=== PATIENT | male | born 1960 | race African-American/Black ===

== ENCOUNTER 2020-09-22 09:29 | Outpatient (REF) | payer MEDICAID, SELFPAY | END 2020-09-22 09:30 | disposition home or self-care (01) | LOC: HO.LAB 09:29 | PROVIDERS: Visit Provider Internal Medicine | DX: Z20.828 Contact with and (suspected) exposure to other viral communicable diseases (principal) | CPT/HCPCS: C9803; U0003 ==

== ENCOUNTER → 2020-12-16 13:14 | Outpatient (BNVA) | payer MEDICAID, SELFPAY | PROVIDERS: PCP Internal Medicine; Visit Provider Nurse Practitioner ==

== ENCOUNTER → 2020-12-24 08:23 | Outpatient (BNVA) | payer MEDICAID, SELFPAY | PROVIDERS: PCP Internal Medicine; Visit Provider Nurse Practitioner ==

== ENCOUNTER 2021-02-17 08:24 | Day surgery (SDC) | payer MEDICAID, SELFPAY ==
--- NOTE | 2021-01-30 13:40 | HO.ANESPROP2 ---
HPI - Anesthesia Eval Consult details Narrative: 60yo M for Colonoscopy PMFSH Active Problems Active Problems: All Active Problems (Updated 01/28/21 @ 14:38 by Jessica Nguyen) Colon cancer screening (Acute) Tubular adenoma of colon (Acute) Past Medical History Medical History (Updated 01/30/21 @ 13:40 by Darcie West) BPH (benign prostatic hyperplasia) Diabetes Hypertension Family History Family History (Updated 12/16/20 @ 13:22 by Shannan Lopes [place]) Father Parkinsons Mother No problems noted. Surgical History Surgical History (Updated 01/28/21 @ 14:38 by Jessica Nguyen) Hx of colonoscopy Social History Social History (Updated 12/24/20 @ 08:28 by Mari Martell [place]) Household Members: Spouse, Family and Children Alcohol intake: current Alcohol intake frequency: does not drink Smoking Status: Current every day smoker Tobacco Type: Cigarette Cigarettes Per Day: 8 Meds Allergies Allergy/AdvReac Type Severity Reaction Status Date / Time No Known Allergies Allergy Verified 01/28/21 14:33 [No Known Allergies*] Home Medications Medication Instructions Recorded Confirmed Last Taken Type amlodipine 10 mg PO DAILY 01/28/21 01/28/21 Unknown History atorvastatin 20 mg PO DAILY 01/28/21 01/28/21 Unknown History cholecalciferol (vitamin D3) 50 mcg PO DAILY 01/28/21 01/28/21 Unknown History [Vitamin D3] glipizide 2.5 mg PO 1200 01/28/21 01/28/21 Unknown History glipizide 10 mg PO DAILY 01/28/21 01/28/21 Unknown History hydroxyzine HCl 25 mg PO BID PRN 01/28/21 01/28/21 Unknown History pioglitazone [Actos] 15 mg PO DAILY 01/28/21 01/28/21 Unknown History Exam Exam Date and Time: January 30, 2021 1340 Assessment and Plan Assessment Anesthesia Assessment: Chart Reviewed
--- NOTE | 2021-02-17 09:09 | P.OP_ITS ---
Operative Note Operative Note Date of Service: 02/17/21 Narrative: Pre-op diagnosis: Colon cancer screening, history of colon polyps Post-op diagnosis: other (COLON POLYPS, DIVERTICULOSIS, HEMORRHOIDS) Procedure: COLONOSCOPY TILL CECUM WITH SNARE POLYPECTOMY Consent: Indications for the procedure and potential complications of bleeding, perforation, reaction to medications and missed diagnosis were discussed with the patient and informed consent was obtained. Instrument: Olympus PCF H 190 L variable stiffness pediatric colonoscope Monitoring: Vital signs and clinical assessment, intermittent blood pressure monitoring, continuous EKG monitoring, Pulse oximetry and Carbon Dioxide monitoring were done throughout the procedure. Colon withdrawl time was 28 minutes. Procedure: The patient was placed in the left lateral decubitis position and pre-procedure medications were administered. After a digital rectal examination of the ano-rectum, the video colonoscope was inserted into the rectum and advanced through the colon to the cecum. The colonoscope was slowly withdrawn in a retrograde panoramic fashion and the colon mucosa was carefully examined including a retroflexed view of the rectum. Findings and interventions are described below. Procedure Difficulty: Without difficulty Findings: Terminal Ileum: Not evaluated Cecum: Diverticulosis Ascending Colon: Moderate diverticulosis Transverse Colon: A 10-12 mm sessile polyp removed with a hot snare Descending Colon: Moderate diverticulosis Sigmoid Colon: Moderate diverticulosis Rectum: Normal Ano-rectum: Moderate internal hemorrhoids Colon preparation: Good after copious irrigation Impression and Post Procedure Diagnosis: Colonoscopy Findings: One medium sized polyp removed Moderate diverticulosis seen in the entire colon Moderate hemorrhoids on retroflexed exam. Plan: Await pathology results Patient has an appointment on 02/24/21 in the [facility] with Karolina Cisneros NP . Repeat Colonoscopy interval based on path results - in 3-5 years if polyps are adenomatous and due to history of colon polyps. Above findings were reviewed with the patient and colon polyps and diverticulosis handouts were given in the discharge area Surgeon: Cortney Bailey MD Anesthesia: MAC (Salena Darling CRNA) Outside Upholsterer: Agustin Rubalcava Estimated blood loss (mL): 0 Pathology: other (A- TRANSVERSE COLON POLYP) Condition: stable Disposition: PACU
--- NOTE | 2021-02-17 09:10 | MHC.SHP ---
Pre-Procedural Eval Section A The patient is an INPATIENT: No The History & Physical has been completed within 30 days and I have reviewed it.: No Section B Chief Complaint: Screening, Tubular Adenoma Details of Present Illness: Colon cancer screening, history of colon polyps Relevant Social History: Tobacco Use Present Medications: see Short Stay Collaborative assessment Medical History: Significant History (Diabetes. Hypertension, unspecified type. Benign prostatic hyperplasia, unspecified whether lower urinary tract symptoms present. ) History of Previous Operations: Relevant previous surgery/procedure and date(s) (Laser of the prostate 2018, colonoscopy - 05/2017 in [place]) Allergies: Allergies Allergy/AdvReac Type Severity Reaction Status Date / Time No Known Allergies Allergy Verified 01/28/21 14:33 [No Known Allergies*] Review of Systems Sugical H&P ROS: Negative: Constitution, Cardiovascular, Respiratory and Gastrointestinal Exam Surgical H&P Exam: Normal: Heart, Normal: Lungs, Normal: Extremities and Normal: Abdomen Plan Diagnosis/Plan: Unchanged I have reviewed the history and physical and performed a pertinent physical examination on my patient. No changes have occurred unless specified.
[2021-02-17 09:13] VITALS: BMI 29.0
[2021-02-17 09:40] VITALS: BP 136/66; PULSE 57; RESP 16; TEMP 36.8; O2SAT 97
[2021-02-17 09:42] LABS: Glucose, Whole Blood 141 mg/dL (60-115)
[2021-02-17] MEDS: Lactated Ringers 1,000 ML 100 ML IVCONT (09:54)
--- NOTE | 2021-02-17 10:00 | HO.ANESPROP2 ---
[facility] Active Problems Active Problems: All Active Problems (Updated 01/30/21 @ 13:40 by Darcie West) Colon cancer screening (Acute) Tubular adenoma of colon (Acute) Past Medical History Medical History BPH (benign prostatic hyperplasia) Diabetes Hypertension Family History Family History Father Parkinsons Mother No problems noted. Surgical History Surgical History Hx of colonoscopy Social History Social History Household Members: Spouse, Family and Children Alcohol intake: current Alcohol intake frequency: holidays/special occasions only Smoking Status: Current every day smoker Tobacco Type: Cigarette Cigarettes Per Day: 7 Smoked in Last 30 Days: Yes Use of substances other than those prescribed or required for medical reasons: No Advance Directives: No Advance Directives Information Provided: Yes Meds Allergies Allergy/AdvReac Type Severity Reaction Status Date / Time metformin Allergy Rash Verified 02/17/21 09:12 Active Medications: Current Medications Generic Name Dose Route Start Last Admin Trade Name Freq PRN Reason Stop Dose Admin Albuterol Sulfate 2.5 mg 02/17/21 08:32 Albuterol Sulfate (0.083%) 2.5 Mg/3 Ml Vial.Neb INHALE ONCE PRN Shortness of Breath/Wheezing Lactated Ringer's 1,000 mls @ 100 mls/hr 02/17/21 08:45 02/17/21 09:54 Lr IVCONT 100 mls/hr .Q10H EZRA Administration Home Medications Medication Instructions Recorded Confirmed Last Taken Type amlodipine 10 mg PO DAILY 01/28/21 02/17/21 02/17/21 History atorvastatin 20 mg PO DAILY 01/28/21 01/28/21 Unknown History cholecalciferol (vitamin D3) 50 mcg PO DAILY 01/28/21 01/28/21 Unknown History [Vitamin D3] glipizide 2.5 mg PO 1200 01/28/21 01/28/21 Unknown History glipizide 10 mg PO DAILY 01/28/21 01/28/21 Unknown History hydroxyzine HCl 25 mg PO BID PRN 01/28/21 01/28/21 Unknown History pioglitazone [Actos] 15 mg PO DAILY 01/28/21 01/28/21 Unknown History Exam Exam Date and Time: February 17, 2021 1000 Height,Weight and Vital Signs: Height 5 ft 6 in Weight 81.647 kg Last Vital Signs Temp 98.2 F 02/17/21 09:40 Pulse 57 02/17/21 09:40 Resp 16 02/17/21 09:40 BP 136/66 02/17/21 09:40 Pulse Ox 97 02/17/21 09:40 Pertinent Lab Results Pertinent Lab Results: Laboratory Tests 02/17/21 09:38 POC Glucose 141 H Airway Mallampati Class: II TM Dist: >3cm Neck ROM: Full Loose/Missing/Broken Teeth: No Heart: RRR Lungs: CTA Assessment and Plan Assessment Anesthesia Assessment: Anesthesia Plan Discussed and Chart Reviewed Final Anesthetic Review NPO: Yes ASA Class: II Final Preanesthetic Review: Meds/Allgs Chart Reviewed, Consent Obtained/Reviewed and Anes Risks/Benef Reviewed Patient Risk: Low Procedure Risk: Low Anesthetic Plan Anesthetic Plan: MAC: Disposition: Standard PACU
[2021-02-17 10:57] VITALS: BP 90/58; PULSE 68; RESP 16; TEMP 36.8; O2SAT 98
[2021-02-17 11:13] VITALS: BP 96/61; PULSE 57; RESP 18; O2SAT 99
--- NOTE | 2021-02-17 11:43 | PC.NURSE ---
[facility] Radiologic Technology Teacher utilized for patient education and discharge instructions
== END 2021-02-17 11:44 | disposition home or self-care (01) ==
PROVIDERS: PCP Internal Medicine; Visit Provider Internal Medicine Gastroenterology
PROC: 0DJD8ZZ Inspection of Lower Intestinal Tract, Via Natural or Artificial Opening Endoscopic (ICD-10-PCS; CPT 45378; principal; 2021-02-17 09:50)
DX: Z12.11 Encounter for screening for malignant neoplasm of colon (principal); Z86.010 Personal history of colon polyps; D12.3 Benign neoplasm of transverse colon; K57.30 Diverticulosis of large intestine without perforation or abscess without bleeding; K64.8 Other hemorrhoids; F17.210 Nicotine dependence, cigarettes, uncomplicated; N40.0 Benign prostatic hyperplasia without lower urinary tract symptoms; I10 Essential (primary) hypertension; E11.9 Type 2 diabetes mellitus without complications; Z79.84 Long term (current) use of oral hypoglycemic drugs; Z79.899 Other long term (current) drug therapy
CPT/HCPCS: 45385; 82947; 88305

== ENCOUNTER → 2021-02-24 12:16 | Outpatient (BNVA) | payer MEDICAID, SELFPAY | PROVIDERS: PCP Internal Medicine; Visit Provider Nurse Practitioner ==

== ENCOUNTER 2022-09-21 09:58 | Emergency (ER) | payer MEDICAID, SELFPAY ==
[2022-09-21 10:38] VITALS: BP 148/70; PULSE 65; RESP 16; TEMP 36.4; O2SAT 98; BMI 27.7
[2022-09-21] MEDS: Lidocaine 4 % Patch ADH..PATCH 1 PATCH TRANSDERMA (14:51)
[2022-09-21] MEDS: Acetaminophen 325 MG TABLET 975 MG PO (14:51)
[2022-09-21] MEDS: Ibuprofen 400 MG TABLET PO (14:52)
--- NOTE | 2022-09-21 14:55 | ED_ITS ---
HPI - Headache General Chief Complaint: Headache Stated Complaint: R Side Head Pain No Injury Time Seen by Provider: 09/21/22 14:54 Source: patient Mode of arrival: ambulatory Limitations: no limitations History of Present Illness HPI Narrative: This is a 61-year-old male past medical history significant for diabetes, hypertension presenting to the emergency department with a stiff neck times 2-3 days, patient tells me he woke up this by. Patient tells me he feels like his neck is tense . Worse with movement better at rest. He tells me he feels like he is having muscle spasm in his neck. He tells me this has happened to him before, pain is not improving with OTC medications. Patient denies headache, dizziness, vision changes, weakness, chest pain, shortness of breath, fevers, chills, altered mental status,numbness, tingling. No trauma. Ambulatory into room w/o difficulty Related Data Home Medications Medication Instructions Recorded Confirmed amlodipine 10 mg tablet 10 mg PO DAILY 01/28/21 02/17/21 atorvastatin 20 mg tablet 20 mg PO DAILY 01/28/21 01/28/21 cholecalciferol (vitamin D3) 50 50 mcg PO DAILY 01/28/21 01/28/21 mcg (2,000 unit) capsule (Vitamin D3) glipizide 10 mg tablet, extended 10 mg PO DAILY 01/28/21 01/28/21 release 24 hr glipizide 2.5 mg tablet, extended 2.5 mg PO 1200 01/28/21 01/28/21 release 24 hr hydroxyzine HCl 25 mg tablet 25 mg PO BID PRN Anxiety 01/28/21 01/28/21 pioglitazone 15 mg tablet (Actos) 15 mg PO DAILY 01/28/21 01/28/21 Previous Rx's Medication Instructions Recorded diazepam 2 mg tablet (Valium) 2 mg PO BID PRN muscle spasm #10 09/21/22 tabs ketorolac 10 mg tablet 10 mg PO TID PRN pain 5 days #14 09/21/22 tabs Allergies Allergy/AdvReac Type Severity Reaction Status Date / Time metformin Allergy Rash Verified 02/24/21 12:17 Review of Systems Review of Systems: Constitutional : No Weight loss, No Fever, No Chills, No Fatigue, No Malaise ENT/Mouth : No sore throat, No Rhinorrhea Eyes: No Eye Pain, No Swelling, No Redness Cardiovascular : No Chest Pain, No SOB, No Dyspnea on Exertion, No Orthopnea, No Edema, No Palpitations Respiratory : No Cough, No Sputum, No Wheezing Gastrointestinal : No Nausea, No Vomiting, No Diarrhea, No Constipation, No abdominal Pain, No Hematochezia, No Melena Genitourinary : No Dysuria, No Urinary Frequency, No Hematuria, Musculoskeletal : No joint pain, No Myalgias, No Joint Swelling, + neck pain Skin : No Skin Lesions, No rash Neuro : No Weakness, No Numbness, No Dizziness, + Headache Psych : No Anxiety/Panic, No Depression All other systems reviewed and are negative Yes all other systems are reviewed and are negative REPLACED BY [facility] Past Medical History Attestation statement: The following information was validated with the patient. Source: old records reviewed and nursing notes reviewed Medical History BPH (benign prostatic hyperplasia) Diabetes Hypertension Surgical History Hx of colonoscopy Hx of colonoscopy Family History Family History Father Parkinsons Mother No problems noted. Social History Social History Household Members: Spouse, Family and Children Alcohol intake: current Alcohol intake frequency: holidays/special occasions only Cigarettes Per Day: 7 Advance Directives: No Physical Exam Vital Signs: Vital Signs: Last Vital Signs Temp 97.5 F 09/21/22 10:38 Pulse 65 09/21/22 10:38 Resp 16 09/21/22 10:38 BP 148/70 H 09/21/22 10:38 Pulse Ox 98 09/21/22 10:38 O2 Del Method 09/21/22 10:38 BMI result Body Mass Index 27.7 vss Appearance: Alert.? Oriented X3.? No acute distress.? Head: Normocephalic, atraumatic, no step-offs or deformities Eyes: Pupils equal, round and reactive to light.? Neck: Normal inspection.? Neck supple.?+ bilateral cervical paraspinous tenderne ss. Worse on the right. Patient with Lidoderm patch overlying the affected area CVS: Normal heart rate and rhythm.? Pulses normal.? Respiratory: No respiratory distress.? Breath sounds normal.? Abdomen: Soft and nontender.? Skin: Skin warm and dry.? Normal skin color.? Normal skin turgor.? Extremities: No lower extremity edema.? No calf ttp. 5/5 strength to bilateral upper and lower extremities Neuro: Oriented X 3.? No motor deficit.? No sensory deficit. CN 2-12 intact . Normal vfjeyj-pv-mncn, mkgh-pl-mcwy, steady tandem gait. normal rapid alternating movements and coordination. Course Reevaluation(s) Reevaluation #1: Patient tolerated medications well. Advised to return with new or worsening symptoms. Patient will be sent home with the same medications, gave him instructions on how to take Toradol and told him not to mix with NSAIDs or alcohol. Educated on worrisome signs and symptoms and when to return, comfortable for discharge Time: 15:08 Medications Administered Discontinued Medications Generic Name Dose Route Start Last Admin Trade Name Greta PRN Reason Stop Dose Admin Acetaminophen 975 mg 09/21/22 14:22 09/21/22 14:51 Acetaminophen 325 Mg Tablet PO 09/21/22 14:23 975 mg ONCE ONE Administration Ibuprofen 400 mg 09/21/22 14:22 09/21/22 14:52 Ibuprofen 400 Mg Tablet PO 09/21/22 14:23 400 mg ONCE ONE Administration Lidocaine 1 patch 09/21/22 14:22 09/21/22 14:51 Lidocaine 4 % Patch Adh..Patch TRANSDERMA 09/21/22 14:23 1 patch ONCE ONE Administration Protocol MDM - Headache MDM Narrative Medical decision making narrative: 1458 61 year old male presents w/ right sided head pain and neck pain X2 days PE- bilateral cervical paraspinous tenderness. Negative lehermit sign. Full ROM to neck. No meningeal signs. RRR. Lungs clear. Neuro nonfocal. Cerebellar intact Likley cervical spasm. Unlikely meningitis, encephalitis, paraspinous/epidural abcess, cord compression, intracranial hemorrhage, subarachnoid, stroke or posterior stroke. NIH stroke scale 0. plan at this time is to give diazepam, Toradol. no need for imaging at this time as patient has atraumatic pain in is likely musculoskeletal in nature. Medical Records Attestation: I reviewed the patient's medical records. Lab Data Attestation: I reviewed the patient's lab results. Critical Care Time Critical Care Time Critical Care Time: No Discharge Plan Discharge Clinical Impression: Cervical paraspinous muscle spasm Patient Disposition: Home, Self-Care Instructions: Muscle Spasm (ED) Additional Instructions: Take your medications as prescribed. If you were prescribed antibiotics today, it is important that you take your medication to their entirety, do not skip any doses, do not finish them early. Follow-up with your primary care provider this week. Return to the emergency department with new or worsening symptoms. Such as fevers, chills, chest pain, shortness of breath, nausea, vomiting, dizziness, headache, vision changes, lethargy a numbness, tingling, changes in vision In case of emergency call 911 Please do not take this medication with other anti-inflammatory medications or NSAIDs. Do not take this with alcohol. This can cause GI bleeding. [place] gurwinder medicamentos seg?n lo prescrito. Si le recetaron antibi?ticos hoy, es importante que tome bergeron medicamento en bergeron totalidad, no se salte ninguna dosis, no los termine antes de tiempo. Seguimiento con bergeron proveedor de atenci?n primaria esta semana. Regrese al departamento de emergencias con s?ntomas nuevos o que empeoran. [place] fiebre, escalofr?os, dolor de pecho, dificultad para respirar, n?useas, v?mitos, mareos, dolor de negin, cambios en la visi?n, letargo, entumecimiento, hormigueo, cambios en la visi?n. En mary de emergencia llama al 911 No tome mary carmen medicamento con otros medicamentos antiinflamatorios o NSAIDs. No tome esto con alcohol. [place] puede causar sangrado gastrointestinal. Prescriptions: New diazepam [Valium] 2 mg tablet 2 mg PO BID PRN (Reason: muscle spasm) Qty: 10 0RF ketorolac 10 mg tablet 10 mg PO TID PRN (Reason: pain) 5 Days Qty: 14 0RF Rx Instructions: tolerated IM in the department. Please do not take this medication with other anti-inflammatory medications or NSAIDs, do not mix with alcohol. Increase chance of bleeding. No Action pioglitazone [Actos] 15 mg Tablet 15 mg PO DAILY atorvastatin 20 mg Tablet 20 mg PO DAILY glipizide 10 mg Tablet Extended Release 24hr 10 mg PO DAILY amlodipine 10 mg Tablet 10 mg PO DAILY glipizide 2.5 mg Tablet Extended Release 24hr 2.5 mg PO 1200 hydroxyzine HCl 25 mg Tablet 25 mg PO BID PRN (Reason: Anxiety) cholecalciferol (vitamin D3) [Vitamin D3] 50 mcg (2,000 unit) Capsule 50 mcg PO DAILY Referrals: Clari Lemons MD [Primary Care Provider] - 2 days Stand Alone Forms: Work/School Release
[2022-09-21] MEDS: diazePAM 2 MG TABLET PO (15:21)
[2022-09-21] MEDS: Ketorolac Tromethamine 15 MG/ML VIAL IM (15:22)
[2022-09-21 15:37] LABS: Influenza A PCR NEGATIVE (Negative); Influenza B PCR NEGATIVE (Negative); Resp Syncy Virus RNA Qual PCR NEGATIVE (Negative); SARS COV2 PCR INHOUSE NEGATIVE (Negative)
== END 2022-09-21 15:37 | disposition home or self-care (01) ==
PROVIDERS: Student in an Organized Health Care Education/Training Program; Emergency Provider Internal Medicine; PCP Internal Medicine
DX: M54.2 Cervicalgia (principal); R51.9 Headache, unspecified; I10 Essential (primary) hypertension; Z20.822 Contact with and (suspected) exposure to COVID-19
CPT/HCPCS: 0241U; 96372; 99283; 99284; J1885

== ENCOUNTER 2022-11-08 13:25 | Emergency (ER) | payer MEDICAID, SELFPAY ==
[2022-11-08 13:40] VITALS: BP 128/87; PULSE 62; RESP 16; TEMP 36.6; O2SAT 98; BMI 27.7
--- NOTE | 2022-11-08 13:46 | PC.NURSE ---
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
[2022-11-08 14:13] VITALS: BP 157/93; PULSE 67; O2SAT 97
== END 2022-11-08 14:27 | disposition home or self-care (01) ==
PROVIDERS: Emergency Provider Emergency Medicine; PCP Internal Medicine
DX: S00.532A Contusion of oral cavity, initial encounter (principal); W22.09XA Striking against other stationary object, initial encounter; E11.9 Type 2 diabetes mellitus without complications; I10 Essential (primary) hypertension; F17.210 Nicotine dependence, cigarettes, uncomplicated; Y93.9 Activity, unspecified; Y92.032 Bedroom in apartment as the place of occurrence of the external cause; Y99.9 Unspecified external cause status
CPT/HCPCS: 99283; 99284

== ENCOUNTER 2023-07-31 16:41 | Emergency (ER) | payer MEDICAID, SELFPAY ==
[2023-07-31 17:50] VITALS: BP 137/77; PULSE 76; RESP 20; TEMP 36; O2SAT 96; BMI 27.6
--- NOTE | 2023-07-31 17:57 | ED.GENADULT ---
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 Pain has been constant for the past month in the epigastric area but over the past 3 days the pain is becoming more diffuse to the left lower quadrant area, constant, severe 7/10, no nausea, no vomiting, no diarrhea, normal bowel movement this morning with low blood, no fever, chills, no dysuria, frequent urination, no blood in the urine. Never had intra-abdominal surgery in the past. Patient had colonoscopy 3 years ago and was unremarkable as per patient. No history of intra-abdominal surgery. Related Data Home Medications Medication Instructions Recorded Confirmed amlodipine 10 mg tablet 10 mg PO DAILY 01/28/21 02/17/21 atorvastatin 20 mg tablet 20 mg PO DAILY 01/28/21 01/28/21 cholecalciferol (vitamin D3) 50 50 mcg PO DAILY 01/28/21 01/28/21 mcg (2,000 unit) capsule (Vitamin D3) glipizide 10 mg tablet, extended 10 mg PO DAILY 01/28/21 01/28/21 release 24 hr glipizide 2.5 mg tablet, extended 2.5 mg PO 1200 01/28/21 01/28/21 release 24 hr hydroxyzine HCl 25 mg tablet 25 mg PO BID PRN Anxiety 01/28/21 01/28/21 pioglitazone 15 mg tablet (Actos) 15 mg PO DAILY 01/28/21 01/28/21 Previous Rx's Medication Instructions Recorded diazepam 2 mg tablet (Valium) 2 mg PO BID PRN muscle spasm #10 09/21/22 tabs ketorolac 10 mg tablet 10 mg PO TID PRN pain 5 days #14 09/21/22 tabs lidocaine 5 % topical patch 1 patch topical DAILY PRN pain #15 09/21/22 ea omeprazole 40 mg capsule,delayed 40 mg PO DAILY #20 caps 08/01/23 release Allergies Allergy/AdvReac Type Severity Reaction Status Date / Time metformin Allergy Rash Verified 07/31/23 17:58 Review of Systems Review of Systems: All other systems are reviewed and are negative Constitutional: Reports as per HPI and Reports no additional constitutional complaints Eyes: Reports as per HPI and Reports no additional eye complaints Reports system reviewed and no additional complaints, except as documented Cardiovascular: Reports as per HPI and Reports no additional cardiovascular complaints Respiratory: Reports as per HPI and Reports no additional respiratory complaints Gastrointestinal: Reports as per HPI and Reports no additional gastrointestinal complaints Genitourinary: Reports no additional female genitourinary complaints Musculoskeletal: Reports no additional musculoskeletal complaints Skin/Breast: Reports system reviewed and no additional complaints, except as docu Psychiatric: Reports no additional psychiatric complaints Endocrine: Reports no additional endocrine complaints Hematologic/Lymphatic: Reports no additional hematologic/lymphatic complaints Allergic/Immunologic: Reports no additional allergic/immunologic complaints Reports system reviewed and no additional complaints, except as documented and Reports Abnormal speech present [facility] Past Medical History Medical History Diabetes BPH (benign prostatic hyperplasia) Hypertension Surgical History Hx of colonoscopy Hx of colonoscopy Family History Family History Father Parkinsons Mother No problems noted. Social History Social History Household Members: Spouse, Family and Children Alcohol intake: never Cigarettes Per Day: 7 Smoked in Last 30 Days: Yes Use of substances other than those prescribed or required for medical reasons: No Advance Directives: No Advance Directives Information Provided: No Physical Exam ED Vital Signs: Vital Signs - 24 hr 07/31/23 17:50 07/31/23 23:56 08/01/23 02:47 Temperature 96.8 F Pulse Rate 76 73 65 Respiratory Rate 20 12 12 Blood Pressure 137/77 127/83 128/76 Pulse Oximetry 96 95 97 Oxygen Delivery Method Room Air Room Air Room Air BMI result Body Mass Index 27.6 Vital signs have been reviewed and appear to be correct. Blood pressure elevated. Heart rate normal. Respiratory rate normal. Temperature normal. Oxygen saturation normal. Appearance: Alert. Oriented X3. No acute distress. Head: Normal external exam. Normocephalic. Atraumatic. No Roberts signs noted. No raccoon eyes noted Eyes: PERRLA. EOMI. Conjunctiva and sclera normal. Eyelids normal. ENT: TM's Normal. Pharynx normal. Uvula midline. Moist mucous membranes. No trismus noted. No drooling noted. No muffled voice noted. Neck: Normal inspection. Neck supple. FROM. No adenopathy. Thyroid Normal. No meningeal signs. No neck mass noted. CVS: Normal heart rate and rhythm. Heart sound normal. No murmurs noted. Pulses normal throughout. Respiratory: No respiratory distress. Painless inspiration. Breath sounds normal. No wheezes/rales/rhonchi noted. Chest nontender. No accessory muscle usage noted or decreased air movement noted. Abdomen: Soft and nontender. Bowel sounds normal in all 4 quadrants. No distention noted. No organomegaly noted. No visible injury noted. Back: No CVA tenderness. Full range of motion noted. Skin: Skin warm and dry. Normal skin color. Normal skin turgor. No rashes/lesions/lacerations noted. Extremities: No lower extremity edema. Extremities exhibit normal range of motion. Extremities nontender. Neuro: Oriented X 3. Cranial nerve exam: II-XII are grossly intact No motor deficit. No sensory deficit. Reflexes normal. Course Course Course Narrative: RME: 62 yold male presents to the ED for epigastric abdominal pain that is now generalized for the past 3 days. Patietn denies any complaitns or constipation. labs, EKG ordereed Reevaluation(s) Reevaluation #1: Three days of abdominal pain, leukocytosis, physical exam and history is consistent with gastritis, CT abdomen pelvis is unremarkable for acute pathology. Will discharge the patient on Prilosec and follow-up with GI. Time: 02:37 Medications Administered Discontinued Medications Generic Name Dose Route Start Last Admin Trade Name Freq PRN Reason Stop Dose Admin Morphine Sulfate 2 mg 08/01/23 00:18 08/01/23 00:58 Morphine Sulfate 2 Mg/Ml Cartridge IM 08/01/23 00:19 2 mg ONCE ONE Administration Protocol Medical Decision Making Differential Diagnosis Differential Diagnoses: The differential diagnosis associated with the presentation includes (ACS, gastritis, colitis, diverticulitis, appendicitis, electrolyte abnormality, severe anemia.) Admission/Observation Consideration of admission/observation: Escalation of care including admission/observation considered Lab Data MDM Lab Attestation statement: I reviewed the patient's lab results. 07/31/23 18:08 07/31/23 18:08 Labs: Lab Results 07/31/23 07/31/23 Range/Units 18:08 23:48 WBC 13.9 H (4.8-10.8) X10*3/uL RBC 5.06 (4.60-5.80) X10*6/uL Hgb 15.5 (14.0-18.0) g/dl Hct 46.0 (42.0-52.0) % MCV 90.9 (80.0-98.0) fL MCH 30.6 (27.0-33.0) pg MCHC 33.7 (31.0-36.0) g/dl RDW 14.0 (11.0-16.0) % Plt Count 206 (160-400) X10*3/uL MPV 11.3 (9.4-12.4) fL Immature Gran % (Auto) 0.4 (0.0-0.4) % Neut % (Auto) 65.0 (45-73) % Lymph % (Auto) 24.9 (20-40) % Terry % (Auto) 7.5 (2-11) % Eos % (Auto) 1.9 (0-4) % Baso % (Auto) 0.3 (0-2) % Lymph # (Auto) 3.5 (1.2-4.9) X10*3/uL Terry # (Auto) 1.1 (0.1-1.2) X10*3/uL Eos # (Auto) 0.3 (0.0-0.4) X10*3/uL Baso # (Auto) 0.0 (0.0-0.2) X10*3/uL Abs Immat Gran (auto) 0.05 H (0.00-0.03) X10*3/uL Absolute Neuts (auto) 9.1 H (2.0-8.3) x10*3/uL Absolute Nucleated RBC 0.000 (0.0-0.012) X10*3/uL Nucleated RBC % (auto) 0.0 (0.0-0.2) /100WBC Sodium 138 (135-145) mmol/L Potassium 4.8 (3.3-5.1) mmol/L Chloride 104 (96-108) mmol/L Carbon Dioxide 23 (22-29) mmol/L Anion Gap 16 (12-20) BUN 15 (9-16) mg/dL Creatinine 1.04 (0.5-1.4) mg/dL Estim Creat Clear Calc 74.1 Estimated GFR > 60 Random Glucose 105 (60-115) mg/dL Calcium 9.9 (8.4-10.2) mg/dL Total Bilirubin 0.3 (0.0-1.0) mg/dL AST 11 (5-37) U/L ALT 12 (0-40) U/L Alkaline Phosphatase 73 (39-117) U/L Troponin I High Sens < 2.7 (<3.5-35.0) ng/L Total Protein 8.3 H (6.5-8.0) g/dL Albumin 4.2 (3.5-5.0) g/dL Lipase 17 (8-78) U/L Urine Color Yellow Urine Appearance Clear Urine pH 5.5 (5.0-9.0) Ur Specific [place] 1.020 (1.005-1.025) Urine Protein Negative (Neg-Trace) mg/dL Urine Glucose (UA) >=1000 H (Negative) mg/dL Urine Ketones Negative (Negative) mg/dL Urine Blood Trace H (Negative) Urine Nitrite Negative (Negative) Ur Leukocyte Esterase Negative (Negative) Urine RBC 0-2 (0-2) /HPF Urine WBC 0-5 (0-5) /HPF Ur Squamous Epith Cells 0-2 (0-2) /HPF Urine Bacteria None Seen (None Seen) Hyaline Casts 0-2 (0-2) /LPF Independent Interpretation I performed an independent interpretation of an: CT Scan (Abdomen pelvis: No acute pathology.) Radiology Impression Discussion of test interpretation with radiology: I have reviewed the radiologist's reading. Discharge Plan Discharge Clinical Impression: Abdominal pain, Gastritis Patient Disposition: Home, Self-Care Instructions: Abdominal Pain (ED) Prescriptions: New omeprazole 40 mg capsule,delayed release(DR/EC) 40 mg PO DAILY Qty: 20 0RF No Action pioglitazone [Actos] 15 mg Tablet 15 mg PO DAILY atorvastatin 20 mg Tablet 20 mg PO DAILY glipizide 10 mg Tablet Extended Release 24hr 10 mg PO DAILY amlodipine 10 mg Tablet 10 mg PO DAILY glipizide 2.5 mg Tablet Extended Release 24hr 2.5 mg PO 1200 hydroxyzine HCl 25 mg Tablet 25 mg PO BID PRN (Reason: Anxiety) cholecalciferol (vitamin D3) [Vitamin D3] 50 mcg (2,000 unit) Capsule 50 mcg PO DAILY diazepam [Valium] 2 mg tablet 2 mg PO BID PRN (Reason: muscle spasm) Qty: 10 0RF ketorolac 10 mg tablet 10 mg PO TID PRN (Reason: pain) 5 Days Qty: 14 0RF Rx Instructions: tolerated IM in the department. Please do not take this medication with other anti-inflammatory medications or NSAIDs, do not mix with alcohol. Increase chance of bleeding. lidocaine 5 % adhesive patch,medicated 1 patch topical DAILY PRN (Reason: pain) Qty: 15 0RF Rx Instructions: leave on most painful area for up to 12 hrs Referrals: Clari Lemons MD [Primary Care Provider] - Yolette Donahue MD [Physician] - Interventions: ED Discharge Assessment Last Done: 08/01/23 02:47 Discharge Date/Time: 08/01/23 02:48
[2023-07-31 18:34] LABS: Alanine Aminotransferase 12 U/L (0-40); Albumin Level 4.2 g/dL (3.5-5.0); Alkaline Phosphatase 73 U/L (39-117); Anion Gap 16 (12-20); Aspartate Amino Transferase 11 U/L (5-37); Bilirubin Total 0.3 mg/dL (0.0-1.0); Blood Urea Nitrogen 15 mg/dL (9-16); Calcium 9.9 mg/dL (8.4-10.2); Carbon Dioxide 23 mmol/L (22-29); Chloride 104 mmol/L (96-108); Creatinine Clr Calc Pharmacy 74.1; Estimated Glomerular Filt Rate > 60; Glucose Random 105 mg/dL (60-115); Lipase 17 U/L (8-78); Potassium 4.8 mmol/L (3.3-5.1); Sodium 138 mmol/L (135-145); Total Protein 8.3 g/dL (6.5-8.0)
[2023-07-31 23:56] VITALS: BP 127/83; PULSE 73; RESP 12; O2SAT 95
--- NOTE | 2023-07-31 23:58 | PC.NURSE ---
Pt aox4 resting at the bedside. No apparent distress noted. VSS. Reports abd pain, 4/10, x 3 days. Urine sample provided and sent to the lab. Pending physician anabell.
[2023-08-01 02:47] VITALS: BP 128/76; PULSE 65; RESP 12; O2SAT 97
== END 2023-08-01 02:48 | disposition home or self-care (01) ==
PROVIDERS: Physician Assistant; Emergency Provider Emergency Medicine; PCP Internal Medicine
DX: K29.70 Gastritis, unspecified, without bleeding (principal); R10.32 Left lower quadrant pain; R10.13 Epigastric pain; R94.31 Abnormal electrocardiogram [ECG] [EKG]; Z79.899 Other long term (current) drug therapy
CPT/HCPCS: 36415; 74176; 80053; 81001; 83690; 84484; 85025; 93005; 96372; 99284; J2270

== ENCOUNTER 2023-10-05 19:58 | Outpatient (REF) | payer MEDICAID, SELFPAY | END 2023-10-05 19:59 | disposition home or self-care (01) | LOC: HO.HHCLNP 19:58 | PROVIDERS: Visit Provider Internal Medicine | DX: R35.1 Nocturia (principal) | CPT/HCPCS: 87086 ==

== ENCOUNTER 2023-11-21 12:26 | Outpatient (REF) | payer MEDICAID, SELFPAY ==
[2023-11-21 16:40] LABS: Urine Cytology See Pathology rpt
== END 2023-11-21 12:27 | disposition home or self-care (01) ==
LOC: HO.LNP 12:26
PROVIDERS: PCP Internal Medicine; Visit Provider Nurse Practitioner Family
DX: N40.0 Benign prostatic hyperplasia without lower urinary tract symptoms (principal); R35.1 Nocturia; Z79.899 Other long term (current) drug therapy
CPT/HCPCS: 51798; 81003; 88112; 99212

== ENCOUNTER 2023-11-21 12:32 | Outpatient (AMB) | payer MEDICAID, SELFPAY ==
--- NOTE | 2023-11-21 13:03 | MHC.OFFVIS ---
Intake Intake Visit Reasons: nocturia Intake Note: New Patient presents to office today for Nocturia (patient previously seen Dr. Oconnor) Urology Medications: none Blood Thinner: none Smoker: currently PVR: 26ml's Band Tier Required: Yes Band Tier Name: PHIL RUBIMARILYNGarrett Accompanied by: Unknown Allergies metformin Allergy (Verified 11/21/23 13:46) Rash Medication List - Last Reconciled 11/21/23 by CECIL Harper amlodipine 10 mg PO DAILY atorvastatin 20 mg PO DAILY cholecalciferol (vitamin D3) (Vitamin D3) 50 mcg PO DAILY empagliflozin (Jardiance) 25 mg PO QAM glipizide ER 10 mg PO DAILY omeprazole 40 mg PO DAILY pioglitazone (Actos) 15 mg PO DAILY tamsulosin 0.4 mg PO BEDTIME 30 days HPI HPI Comments History of Present Illness Details Magan is a very pleasant 63-year-old Greek-speaking male patient who was accompanied by his son and at today's office visit. He has a past medical history of diabetes and hypertension. He presents to the office today as a new patient for ongoing lower urinary tract symptoms. In discussion with the patient today reports previously following up with Urology Dr. Bach in the past. In review of patient's chart it appears he underwent laser of the prostate 12/06/2018. He reports he had been doing well up until approximately 6 months ago and more recently feels lower urinary tract symptoms to be present and worsening. He reports urinary frequency, urinary urgency, and feelings of incomplete bladder emptying. In office urinalysis results reviewed with the patient today. PVR 26 mL. Discussed at length potential causes for lower urinary tract symptoms patient is experiencing. It appears CT of the abdomen and pelvis was ordered 08/15. Kidneys with no calculi, lesions, or hydronephrosis noted. The bladder is unremarkable. Discussed at length potential causes for lower urinary tract symptoms patient is experiencing. In office urinalysis results reviewed with the patient today. PVR 26 mL. Discussed at length correlation of diabetes with lower urinary tract symptoms. He otherwise offers no other issues or concerns at this time. [facility] Medical History Diabetes BPH (benign prostatic hyperplasia) Hypertension Surgical History Hx of colonoscopy Hx of colonoscopy Family History Father Parkinsons Mother No problems noted. Social History Household Members: Spouse, Family and Children Alcohol intake: never Cigarettes Per Day: 7 Review of Systems Const Reports no additional complaints Eyes Reports no additional complaints ENT Reports no additional complaints Card Reports as per HPI Resp Reports no additional complaints GI Reports no additional complaints Reports as per HPI Musc Reports no additional complaints Neuro Reports no additional complaints Endo Reports as per HPI Quirino/Lymph Reports no additional complaints Aller/Immun Reports no additional complaints Physical Exam Const General: cooperative, healthy appearing, comfortable, no acute distress, well developed, alert and awake Orientation/consciousness: patient oriented x3 Limitations: no limitations HEENT Head: Yes normal to inspection, Yes normocephalic and Yes atraumatic Ears: hearing grossly normal bilaterally Eyes General: appearance normal, both eyes and all related structures Neck Neck: Yes normal visual inspection and Yes trachea midline Chest Chest palpation & inspection: normal inspection of the chest Resp Effort & Inspection: normal respiratory effort and able to speak in complete sentences Cardio Rate: regular rate GI Inspection: Yes normal to inspection General: Yes no CVA tenderness Back/Spine/Pelvis Back: no CVA tenderness Skin General skin exam: no rashes or lesions noted Neuro General: patient oriented x3 Extrem General: Yes normal to inspection Psych Appearance: grossly normal and well kempt Mental Status: mental status grossly normal Speech and movement: Normal speech and movement present and Clear speech present Affect: normal affect Attitude: cooperative Thought process: Normal thought process present Thought content: Normal thought content present Insight: Fair insight present (Psych) Judgement: Fair judgement present (Psych) Office Procedures Post Void Residual Post Residual Void Post Void Residual (PVR): 26 [id number] Void Residual by ultrasound Results AMB Urinalysis, Automated UA Leukoctes 0 Niecy/uL Last Edit by Juan Pablo Olmedo on 11/21/23 13:26 UA Nitrite Negative Last Edit by Juan Pablo Olmedo on 11/21/23 13:26 UA Urobilinogen 0.2 mg/dL Last Edit by Juan Pablo Olmedo on 11/21/23 13:26 UA Protein 0 mg/dL Last Edit by Juan Pablo Olmedo on 11/21/23 13:26 UA pH 6.0 Last Edit by Juan Pablo Olmedo on 11/21/23 13:26 UA Blood 10 Efrain/uL Last Edit by Juan Pablo Olmedo on 11/21/23 13:26 UA Specific [place] 1.010 Last Edit by Juan Pablo Olmedo on 11/21/23 13:26 UA Ketone Negative Last Edit by Juan Pablo Olmedo on 11/21/23 13:26 UA Bilirubin 0 mg/dL Last Edit by Juan Pablo Olmedo on 11/21/23 13:26 UA Glucose 0 mg/dL Last Edit by Juan Pablo Olmedo on 11/21/23 13:26 Results Reviewed Results Reviewed: Laboratory Last Values Urine pH (Auto) 6.0 11/21/23 13:24 Specific [place] (Auto) 1.010 11/21/23 13:24 Urine Protein (Auto) 0 mg/dL 11/21/23 13:24 Glucose (UA)(Auto) 0 mg/dL 11/21/23 13:24 Urine Ketones (Auto) Negative 11/21/23 13:24 Urine Blood (Auto) 10 Efrain/uL 11/21/23 13:24 Urine Nitrite (Auto) Negative 11/21/23 13:24 Urine Bilirubin (Auto) 0 mg/dL 11/21/23 13:24 Urine Urobilinogen (Auto) 0.2 mg/dL 11/21/23 13:24 Leukocyte Esterase (Auto) 0 Niecy/uL 11/21/23 13:24 Date of Service: 08/01/23 EXAMINATION: CT ABDOMEN AND PELVIS WITHOUT CONTRAST FINDINGS: LUNG BASES: The visualized lung bases are unremarkable. LIVER, GALLBLADDER, AND BILIARY TREE: The liver is normal in size, shape, and attenuation. No focal hepatic lesion or biliary ductal dilatation is present. The gallbladder is unremarkable with no evidence of radiopaque gallstones, gallbladder wall thickening, or obvious pericholecystic inflammatory changes. PANCREAS: Unremarkable. SPLEEN: Unremarkable. ADRENAL GLANDS: There is bilateral adrenal gland thickening. KIDNEYS AND URETERS: The kidneys are normal in size, shape, and attenuation. No hydronephrosis, hydroureter, or calculi seen. No perinephric stranding. BLADDER: Unremarkable. GASTROINTESTINAL TRACT: The appendix is visualized and is within normal limits. There are diverticula of the ascending, descending and the sigmoid colon without diverticulitis. There is an apparent large diverticula extending from a mid small bowel loop with thickening along the diverticula and surrounding infiltrative change. ABDOMINAL WALL: There are bilateral inguinal hernias containing fat. LYMPH NODES: Normal. VASCULAR: There is atherosclerotic plaque of the abdominal aorta with a 4 cm infrarenal abdominal aortic aneurysm. PELVIC VISCERA: Unremarkable. OSSEOUS STRUCTURES: Unremarkable. CT/CT abdomen pelvis wo IV con IMPRESSION: There is an apparent giant diverticulum arising from the mid small bowel with thickening and surrounding infiltration. Diverticulitis suspected. Recommend a small bowel follow-through after treatment to exclude underlying lesion. Ascending, descending and sigmoid colon diverticulosis without diverticulitis. 4 cm infrarenal abdominal aortic aneurysm. Bilateral inguinal hernias containing fat. Fleischner guidelines were followed. Assessment & Plan Assessment & Plan (1) Lower urinary tract symptoms: Code(s): R39.9 - Unspecified symptoms and signs involving the genitourinary system Plan In office urinalysis results reviewed with the patient today; as noted above. PVR 26ml's. Will obtain PSA for further assessment evaluation. Discussed potential for near future retroperitoneal ultrasound and or in office cystoscopy if symptoms persist and/or worsen. Start Flomax as discussed and prescribed. Discussed at length importance of managing diabetes for improvement in lower urinary tract symptoms as well as overall health and well-being. Discussed at length potential causes for lower urinary tract symptoms patient is experiencing. Discussed bladder triggers/irritants. Follow-up in 6 weeks with lab and PVR to be completed prior; or sooner with any issues, concerns, and or questions. Orders: Orders Prostate Specific Antigen Today N40.0 - Benign prostatic hyperplasia without lower urinary tract symptoms AMB Urinalysis Automated Today Z13.9 - Encounter for screening, unspecified AMB Post Void Residual by ultrasound Today Z13.9 - Encounter for screening, unspecified Urine Cytology Today R39.9 - Unspecified symptoms and signs involving the genitourinary system Medications: New tamsulosin 0.4 mg PO BEDTIME 30 days 30 caps 1RF N40.1 - Benign prostatic hyperplasia with lower urinary tract symptoms, R35.1 - Nocturia Patient Instructions: The patient had an opportunity to ask questions regarding the treatment plan. All questions were answered. Physical exam, labs, and imaging were discussed and reviewed in detail. As well as risks, benefits, and discussion of treatment choices. No major barriers to understanding were identified. The patient expressed understanding and agreement with the above treatment plan. The patient was made aware they should contact our office by phone for worsening of their current condition, the appearance of new symptoms, or with any questions or concerns. Compliance is encouraged with any medications and follow up testing that is ordered. It is a privilege to be allowed the opportunity to participate in? your urological care.? Again, if you have any questions or concerns If you have any questions or concerns please do not hesitate to contact me. The office is [phone]. This note is constructed using voice recognition software. While every effort has been made to ensure accuracy tire cord weaver errors may have been included. Yours sincerely, TEA Harper-NIKO Coding Level of Care Code New Pt Level 4 (64417) Diagnoses Lower urinary tract symptoms R39.9 CPT Codes Post Residual Void - PVR CPT Code: 45975-Abky Void Residual by ultrasound ([id number])
== END 2023-11-21 13:45 | disposition home or self-care (01) ==
PROVIDERS: PCP Internal Medicine; Visit Provider Nurse Practitioner Family
DX: R39.9 Unspecified symptoms and signs involving the genitourinary system (principal)
CPT/HCPCS: 99204

== ENCOUNTER 2023-12-01 10:03 | Outpatient (REF) | payer MEDICAID, SELFPAY ==
[2023-12-01 12:23] LABS: Prostate Specific Antigen 6.15 ng/mL (<0.05-4.0)
== END 2023-12-01 10:04 | disposition home or self-care (01) ==
LOC: HO.HHCL 10:03
PROVIDERS: Nurse Practitioner Family; Visit Provider Internal Medicine
DX: Z12.5 Encounter for screening for malignant neoplasm of prostate (principal); N40.0 Benign prostatic hyperplasia without lower urinary tract symptoms; R35.1 Nocturia
CPT/HCPCS: 36415; 84153

== ENCOUNTER 2024-01-03 12:30 | Outpatient (AMB) | payer MEDICAID, SELFPAY ==
--- NOTE | 2024-01-03 13:06 | A.OFFVIS_ITS ---
Intake Intake Visit Reasons: 6 w/ PSA/PVR(set) Intake Note: Patient presents today for a follow-up Meds- Tamsulosin Allergies to Antibiotic- No Known Allergies Blood Thinner- None Post Void Residual:103ml Hand Umbrella Tipper Required: Yes Hand Umbrella Tipper Name: GABBI LERYO-CMI Accompanied by: Self / Same As Patient Allergies metformin Allergy (Verified 01/03/24 13:56) Rash Medication List - Last Reconciled 01/03/24 by TEA Harper- amlodipine 10 mg PO DAILY atorvastatin 20 mg PO DAILY cholecalciferol (vitamin D3) (Vitamin D3) 50 mcg PO DAILY empagliflozin (Jardiance) 25 mg PO QAM glipizide ER 10 mg PO DAILY omeprazole 40 mg PO DAILY pioglitazone (Actos) 15 mg PO DAILY tamsulosin 0.4 mg PO BEDTIME 30 days HPI HPI Comments History of Present Illness Details Magan is a very pleasant 63-year-old [place] Leonean-speaking male patient who was accompanied by his at today's office visit. He has a past medical history of diabetes and hypertension. He presents to the office today for follow-up. Of note, patient was seen approximately 6 weeks ago as a new patient for ongoing lower urinary tract symptoms at which time he was started on Flomax and a PSA was ordered for further assessment evaluation. These results were reviewed with the patient today. 12/17 PSA-6.2. In discussion with the patient today reports previously following up with Urology Dr. Bach in the past. In review of patient's chart it appears he underwent laser of the prostate 12/06/2018. He reports he had been doing well up until approximately 6 months ago and more recently feels lower urinary tract symptoms to be present and worsening. He reports urinary frequency, urinary urgency, and feelings of incomplete bladder emptying however discusses today feeling symptoms are much more improved with 0.4 mg of Flomax daily. In office urinalysis results reviewed with the patient today. PVR 103 mL. Discussed at length potential causes for elevated PSA. Discussed obtaining redraw of PSA with no sex the night before, no caffeine morning of, no heavy lifting 1-[address] of the abdomen and pelvis was ordered 08/15. Kidneys with no calculi, lesions, or hydronephrosis noted. The bladder is unremarkable. Discussed at length potential causes for lower urinary tract symptoms patient is experiencing. Discussed at length correlation of diabetes with lower urinary tract symptoms. Discussed obtaining retroperitoneal ultrasound for further assessment evaluation. JOJO offered however deferred. He otherwise offers no other issues or concerns at this time. [facility] Medical History Diabetes BPH (benign prostatic hyperplasia) Hypertension Surgical History Hx of colonoscopy Hx of colonoscopy Family History Father Parkinsons Mother No problems noted. Social History Household Members: Spouse, Family and Children Alcohol intake: never Cigarettes Per Day: 7 Review of Systems Const Reports no additional complaints Eyes Reports no additional complaints ENT Reports no additional complaints Card Reports as per HPI Resp Reports no additional complaints GI Reports no additional complaints Reports as per HPI Musc Reports no additional complaints Neuro Reports no additional complaints Endo Reports as per HPI Quirino/Lymph Reports no additional complaints Aller/Immun Reports no additional complaints Physical Exam Const General: cooperative, healthy appearing, comfortable, no acute distress, well developed, alert and awake Orientation/consciousness: patient oriented x3 Limitations: no limitations HEENT Head: Yes normal to inspection, Yes normocephalic and Yes atraumatic Ears: hearing grossly normal bilaterally Eyes General: appearance normal, both eyes and all related structures Neck Neck: Yes normal visual inspection and Yes trachea midline Chest Chest palpation & inspection: normal inspection of the chest Resp Effort & Inspection: normal respiratory effort and able to speak in complete sentences Cardio Rate: regular rate GI Inspection: Yes normal to inspection General: Yes no CVA tenderness Back/Spine/Pelvis Back: no CVA tenderness Skin General skin exam: no rashes or lesions noted Neuro General: patient oriented x3 Extrem General: Yes normal to inspection Psych Appearance: grossly normal and well kempt Mental Status: mental status grossly normal Speech and movement: Normal speech and movement present and Clear speech present Affect: normal affect Attitude: cooperative Thought process: Normal thought process present Thought content: Normal thought content present Insight: Fair insight present (Psych) Judgement: Fair judgement present (Psych) Office Procedures Post Void Residual Post Residual Void Post Void Residual (PVR): 103 [id number] Void Residual by ultrasound Results AMB Urinalysis, Automated UA Leukoctes 0 Niecy/uL Last Edit by Jennie Wick [facility] on 01/03/24 13 :20 UA Nitrite Negative Last Edit by Jennie Wick [facility] on 01/03/24 13: 20 UA Urobilinogen 0.2 mg/dL Last Edit by Jennie Wick [facility] on 4 13:20 UA Protein 15 mg/dL Last Edit by Jennie Wick [facility] on 01/03/24 13:2 0 UA pH 5.5 Last Edit by Jennie Wick, [facility] on 01/03/24 13:20 UA Blood 10 Efrain/uL Last Edit by Jennie Wick [facility] on 01/03/24 13:20 UA Specific [place] 1.010 Last Edit by Jennie Wick [facility] on 13:20 UA Ketone Negative Last Edit by Jennie Wick [facility] on 01/03/24 13:2 0 UA Bilirubin 0 mg/dL Last Edit by Jennie Wick [facility] on 01/03/24 13: 20 UA Glucose 1000 mg/dL Last Edit by Jennie Wick [facility] on 01/03/24 13 :20 Results Reviewed Results Reviewed: Laboratory Last Values Urine pH (Auto) 5.5 01/03/24 13:19 Specific [place] (Auto) 1.010 01/03/24 13:19 Urine Protein (Auto) 15 mg/dL 01/03/24 13:19 Glucose (UA)(Auto) 1000 mg/dL 01/03/24 13:19 Urine Ketones (Auto) Negative 01/03/24 13:19 Urine Blood (Auto) 10 Efrain/uL 01/03/24 13:19 Urine Nitrite (Auto) Negative 01/03/24 13:19 Urine Bilirubin (Auto) 0 mg/dL 01/03/24 13:19 Urine Urobilinogen (Auto) 0.2 mg/dL 01/03/24 13:19 Leukocyte Esterase (Auto) 0 Niecy/uL 01/03/24 13:19 Assessment & Plan Assessment & Plan (1) Elevated PSA: Code(s): R97.20 - Elevated prostate specific antigen [PSA] (2) Lower urinary tract symptoms: Code(s): R39.9 - Unspecified symptoms and signs involving the genitourinary system Plan In office urinalysis results reviewed patient today; as noted above. PVR 103 mL. Discussed at length attempting to sit when voiding to relax pelvis to assist with incomplete bladder emptying. Discussed attempting to double void. Continue Flomax as discussed and prescribed; refill provided; patient reporting improvement in lower urinary tract symptoms with Flomax. Recent PSA results reviewed with the patient today. Discussed at length potential causes of elevated PSA Will obtain redraw of PSA; with no sex the night before, no caffeine morning of, no heavy lifting 1-2 days prior. Discussed obtaining retroperitoneal ultrasound for further assessment evaluation. JOJO offered however deferred. Follow-up in 1-2 months with imaging and lab to be completed prior; or sooner with any issues, concerns, and or questions. Orders: Orders AMB Post Void Residual by ultrasound Today R33.9 - Retention of urine, unspecified AMB Urinalysis Automated Today R33.9 - Retention of urine, unspecified US retroperitoneal comp Today R39.9 - Unspecified symptoms and signs involving the genitourinary system, R97.20 - Elevated prostate specific antigen [PSA] PSA,Total (Free>4and<10) Today E11.69 - Type 2 diabetes mellitus with other specified complication, N52.1 - Erectile dysfunction due to diseases classified elsewhere Medications: Changed From tamsulosin 0.4 mg PO BEDTIME 30 days 30 caps 1RF N40.1 - Benign prostatic hyperplasia with lower urinary tract symptoms, R35.1 - Nocturia To tamsulosin 0.4 mg PO BEDTIME 90 days 90 caps 1RF N40.1 - Benign prostatic hyperplasia with lower urinary tract symptoms, R35.1 - Nocturia Patient Instructions: The patient had an opportunity to ask questions regarding the treatment plan. All questions were answered. Physical exam, labs, and imaging were discussed and reviewed in detail. As well as risks, benefits, and discussion of treatment choices. No major barriers to understanding were identified. The patient expressed understanding and agreement with the above treatment plan. The patient was made aware they should contact our office by phone for worsening of their current condition, the appearance of new symptoms, or with any questions or concerns. Compliance is encouraged with any medications and follow up testing that is ordered. It is a privilege to be allowed the opportunity to participate in? your urological care.? Again, if you have any questions or concerns If you have any questions or concerns please do not hesitate to contact me. The office is [phone]. This note is constructed using voice recognition software. While every effort has been made to ensure accuracy rapier insertion loom fixer errors may have been included. Yours sincerely, CECIL Harper Coding Level of Care Code Est Pt Level 3 (81227) Diagnoses Elevated PSA R97.20 Lower urinary tract symptoms R39.9 CPT Codes Post Residual Void - PVR CPT Code: 66185-Pqlr Void Residual by ultrasound ([id number])
== END 2024-01-03 13:59 | disposition home or self-care (01) ==
PROVIDERS: PCP Internal Medicine; Visit Provider Nurse Practitioner Family
DX: R97.20 Elevated prostate specific antigen [PSA] (principal); R39.9 Unspecified symptoms and signs involving the genitourinary system
CPT/HCPCS: 99213

== ENCOUNTER → 2024-01-03 12:30 | Outpatient (BNVA) | payer MEDICAID, SELFPAY | PROVIDERS: PCP Internal Medicine; Visit Provider Nurse Practitioner Family | DX: R97.20 Elevated prostate specific antigen [PSA] (principal); R39.9 Unspecified symptoms and signs involving the genitourinary system | CPT/HCPCS: 51798; 81003; 99212 ==

== ENCOUNTER 2024-02-01 12:09 | Outpatient (REF) | payer MEDICAID, SELFPAY ==
--- NOTE | ~2024-02-01 | US_ITS ---
EXAMINATION: US RETROPERITONEAL COMPLETE (RENAL) CLINICAL INFORMATION: Elevated prostate specific antigen. COMPARISON: CT abdomen and pelvis 08/01/2023. Ultrasound abdomen complete 04/10/2019. TECHNIQUE: Real-time imaging of the kidneys and bladder. FINDINGS: RIGHT KIDNEY: 11.8 x 4.8 x 5.8 cm (SAG x AP x TRV). The kidney is normal in size, contour, and echogenicity. Renal cortical thickness is normal. No renal calculi or hydronephrosis. 1.4 cm simple parapelvic cyst in the lower kidney. No imaging follow-up is recommended. LEFT KIDNEY: 13.6 x 5.9 x 5.4 cm (SAG x AP x TRV). The kidney is normal in size, contour, and echogenicity. Renal cortical thickness is normal. No calculi or focal parenchymal lesions. No hydronephrosis. BLADDER: Lesion along the midline posterior bladder measures 2.3 x 0.9 x 2.9 cm. No demonstrable internal color Doppler flow. In the presence of reported hematuria this could represent layering blood clot although a mass is not excluded. A discrete mass is not seen in this location on prior CT scan. Prevoid volume 316 mL. Post void residual 230 mL. PROSTATE: Enlarged prostate measuring 47 mL. ADDITIONAL FINDINGS: Stable 3.7 cm infrarenal abdominal aortic aneurysm compared to CT 08/01/2023. US/US retroperitoneal comp IMPRESSION: Possible mass versus blood clot posterior bladder wall. Recommend cystoscopy or short-term follow-up bladder ultrasound as neoplasm is not excluded. Enlarged prostate. Significant post void residual of 230 mL. No hydronephrosis. Stable 3.7 cm infrarenal abdominal aortic aneurysm. This measured 4.[address] scan. Best Practice Recommendation: Based on published guidelines in J Am Nino Radiol 2013; 10(10):789-794 and J Vasc Surg. 2018; 67:2-77, the recommendation for an abdominal aortic aneurysm with diameter 4.0-4.4 cm is vascular consultation and subsequent follow-up every 12 months.
[2024-02-01 14:38] LABS: Appearance Urine Clear; Glucose Urine UA 500 mg/dL (Negative); Leukocyte Esterase Urine Negative (Negative); Nitrite Urine Negative (Negative); PH 5.5 (5.0-9.0); Specific Gravity - Urine <= 1.005 (1.005-1.025); UMIC TRIGGER UA YES; Urine Blood Large (3+) (Negative); Urine Ketones Negative (Negative); Urine Protein 30 (1+) mg/dL (Neg-Trace)
[2024-02-01 14:40] LABS: Bacteria Urine None Seen (None Seen); Color Urine Other; Hyaline Casts Urine 0-2 /LPF (0-2); RBC Urine >20 /HPF (0-2); Squamous Epithelial Cell Urine 0-2 /HPF (0-2); WBC Urine 0-5 /HPF (0-5)
[2024-02-01 15:28] LABS: PSA,Total (Free>4and<10) 6.36 ng/mL (0.00-4.00)
[2024-02-03 10:38] LABS: Percent Free Prostate Spec Ag 16 % (calc) (>25); Prostate Specific Ag Total 6.1 ng/mL (< OR = 4.0)
== END 2024-02-01 12:10 | disposition home or self-care (01) ==
LOC: HO.US 12:09
PROVIDERS: Absent Provider Nurse Practitioner Family; PCP Internal Medicine; Visit Provider Nurse Practitioner Family
DX: Z12.5 Encounter for screening for malignant neoplasm of prostate (principal); R97.20 Elevated prostate specific antigen [PSA]; R39.9 Unspecified symptoms and signs involving the genitourinary system; E11.69 Type 2 diabetes mellitus with other specified complication; N52.1 Erectile dysfunction due to diseases classified elsewhere
CPT/HCPCS: 36415; 76770; 81001; 84153; 84154; 87086

== ENCOUNTER 2024-04-10 14:07 | Outpatient (AMB) | payer MEDICAID, SELFPAY ==
--- NOTE | 2024-04-10 14:14 | A.OFFVIS_ITS ---
Intake Visit Reasons: 1m/US/PSA(set) Intake Note: Patient presents today for a follow-up on: Elevated PSA, LUTS, and Ultrasound Imagin02/01/24 PSA: 6.1 Urology Medications: Tamsulosin Allergies to Antibiotic: No Known Allergies Blood Thinner: None Post Void Residual: 31ml's Chairman And Chief Executive Officer Required: Yes Chairman And Chief Executive Officer Name: PHIL RUBIJAMES Accompanied by: Self / Same As Patient Allergies metformin Allergy (Verified 04/10/24 15:50) Rash Medication List - Last Reconciled 04/10/24 by TAM HarperP- amlodipine 10 mg PO DAILY atorvastatin 20 mg PO DAILY cholecalciferol (vitamin D3) (Vitamin D3) 50 mcg PO DAILY empagliflozin (Jardiance) 25 mg PO QAM glipizide ER 10 mg PO DAILY omeprazole 40 mg PO DAILY pioglitazone (Actos) 15 mg PO DAILY tamsulosin 0.4 mg PO BEDTIME 90 days HPI Comments Details: Magan is a very pleasant 63-year-old French-speaking male patient of Dr Tani Zendejas. He has a past medical history of diabetes and hypertension. He presents to the office today for follow-up of his ongoing lower urinary tract symptoms. Recent retroperitoneal ultrasound and PSA results reviewed with the patient today. Bilateral kidneys with no hydronephrosis or renal calculi. 1.4 right-sided simple peripelvic cysts that requires no follow-up imaging recommended per radiology report. There is a lesion along the midline posterior bladder that measures 2.9 cm. A discrete mass is not seen in this location on prior CT. Pre void bladder volume is approximately 320 mL. Postvoid bladder volume is approximately 230 mL. Prostate measures approximately 47 mL. Discussed elevated PSA. PSAs are as follows: 12/17 6.2, 02/14 6.4 PSA free 16% Reviewed PCPT risk calculator results with the patient today. 71% chance prostate biopsy is negative, 21% chance prostate biopsy positive for low-grade prostate cancer, and 8% chance of prostate biopsy being positive for high-grade prostate cancer. Discussed further treatment options to include surveillance monitoring verses prostate MRI verses trial of finasteride versus prostate biopsy; risks and benefits of these interventions were discussed. He has a previous history of laser of the prostate with Dr. Knox in the past 2/13/19. He reports he had been doing well up until approximately 6-8 months ago when he started experiencing lower urinary tract symptoms of urinary frequency, urinary urgency, and feelings of incomplete bladder emptying however discusses today feeling symptoms are much more improved with 0.4 mg of Flomax daily. In office urinalysis results reviewed with the patient today. PVR 31mL. Discussed at length potential causes for elevated PSA. It appears CT of the abdomen and pelvis was ordered 08/15. Kidneys with no calculi, lesions, or hydronephrosis noted. The bladder is unremarkable. Discussed at length potential causes for lower urinary tract symptoms patient is experiencing. Discussed at length correlation of diabetes with lower urinary tract symptoms. JOJO offered however deferred. He otherwise offers no other issues or concerns at this time. Urine cytology 11/16: Negative for high-grade urothelial carcinoma. [facility] Medical History Diabetes BPH (benign prostatic hyperplasia) Hypertension Surgical History Hx of colonoscopy Hx of colonoscopy Family History Father Parkinsons Mother No problems noted. Social History Household Members: Spouse, Family and Children Alcohol intake: never Cigarettes Per Day: 7 Review of Systems Const Reports no additional complaints Eyes Reports no additional complaints ENT Reports no additional complaints Card Reports as per HPI Resp Reports no additional complaints GI Reports no additional complaints Reports as per HPI Musc Reports no additional complaints Neuro Reports no additional complaints Endo Reports as per HPI Quirino/Lymph Reports no additional complaints Aller/Immun Reports no additional complaints Physical Exam Const General: cooperative, healthy appearing, comfortable, no acute distress, well developed, alert and awake Orientation/consciousness: patient oriented x3 Limitations: no limitations HEENT Head: Yes normal to inspection, Yes normocephalic and Yes atraumatic Ears: hearing grossly normal bilaterally Eyes General: appearance normal, both eyes and all related structures Neck Neck: Yes normal visual inspection and Yes trachea midline Chest Chest palpation & inspection: normal inspection of the chest Resp Effort & Inspection: normal respiratory effort and able to speak in complete sentences Cardio Rate: regular rate GI Inspection: Yes normal to inspection General: Yes no CVA tenderness Back/Spine/Pelvis Back: no CVA tenderness Skin General skin exam: no rashes or lesions noted Neuro General: patient oriented x3 Extrem General: Yes normal to inspection Psych Appearance: grossly normal and well kempt Mental Status: mental status grossly normal Speech and movement: Normal speech and movement present and Clear speech present Affect: normal affect Attitude: cooperative Thought process: Normal thought process present Thought content: Normal thought content present Insight: Fair insight present (Psych) Judgement: Fair judgement present (Psych) Office Procedures Post Void Residual Post Residual Void Post Void Residual (PVR): 31 [id number] Void Residual by ultrasound Results AMB Urinalysis, Automated UA Leukoctes 0 Niecy/uL Last Edit by [email or web address] on 04/10/24 14:53 UA Nitrite Negative Last Edit by [email or web address] on 04/10/24 14:53 UA Urobilinogen 0.2 mg/dL Last Edit by [email or web address] on 04/10/24 14:53 UA Protein 0 mg/dL Last Edit by [email or web address] on 04/10/24 14:53 UA pH 6.0 Last Edit by [email or web address] on 04/10/24 14:53 UA Blood 0 Efrain/uL Last Edit by [email or web address] on 04/10/24 14:53 UA Specific [place] 1.010 Last Edit by [email or web address] on 04/10/24 14:53 UA Ketone Negative Last Edit by [email or web address] on 04/10/24 14:53 UA Bilirubin 0 mg/dL Last Edit by [email or web address] on 04/10/24 14:53 UA Glucose 1000 mg/dL Last Edit by [email or web address] on 04/10/24 14:53 Results Reviewed Results Reviewed: Laboratory Last Values Urine pH (Auto) 6.0 04/10/24 14:51 Specific [place] (Auto) 1.010 04/10/24 14:51 Urine Protein (Auto) 0 mg/dL 04/10/24 14:51 Glucose (UA)(Auto) 1000 mg/dL 04/10/24 14:51 Urine Ketones (Auto) Negative 04/10/24 14:51 Urine Blood (Auto) 0 Efrain/uL 04/10/24 14:51 Urine Nitrite (Auto) Negative 04/10/24 14:51 Urine Bilirubin (Auto) 0 mg/dL 04/10/24 14:51 Urine Urobilinogen (Auto) 0.2 mg/dL 04/10/24 14:51 Leukocyte Esterase (Auto) 0 Niecy/uL 04/10/24 14:51 Date of Service: 02/01/24 EXAMINATION: US RETROPERITONEAL COMPLETE (RENAL) FINDINGS: RIGHT KIDNEY: 11.8 x 4.8 x 5.8 cm (SAG x AP x TRV). The kidney is normal in size, contour, and echogenicity. Renal cortical thickness is normal. No renal calculi or hydronephrosis. 1.4 cm simple parapelvic cyst in the lower kidney. No imaging follow-up is recommended. LEFT KIDNEY: 13.6 x 5.9 x 5.4 cm (SAG x AP x TRV). The kidney is normal in size, contour, and echogenicity. Renal cortical thickness is normal. No calculi or focal parenchymal lesions. No hydronephrosis. BLADDER: Lesion along the midline posterior bladder measures 2.3 x 0.9 x 2.9 cm. No demonstrable internal color Doppler flow. In the presence of reported hematuria this could represent layering blood clot although a mass is not excluded. A discrete mass is not seen in this location on prior CT scan. Prevoid volume 316 mL. Post void residual 230 mL. PROSTATE: Enlarged prostate measuring 47 mL. ADDITIONAL FINDINGS: Stable 3.7 cm infrarenal abdominal aortic aneurysm compared to CT 08/01/2023. IMPRESSION: Possible mass versus blood clot posterior bladder wall. Recommend cystoscopy or short-term follow-up bladder ultrasound as neoplasm is not excluded. Enlarged prostate. Significant post void residual of 230 mL. No hydronephrosis. Stable 3.7 cm infrarenal abdominal aortic aneurysm. This measured 4.[address] scan. Best Practice Recommendation: Based on published guidelines in J Am Nino Radiol 2013; 10(10):789-794 and J Vasc Surg. 2018; 67:2-77, the recommendation for an abdominal aortic aneurysm with diameter 4.0-4.4 cm is vascular consultation and subsequent follow-up every 12 months. Assessment & Plan Assessment & Plan (1) Elevated PSA: Code(s): R97.20 - Elevated prostate specific antigen [PSA] Category: Medical (2) Lower urinary tract symptoms: Code(s): R39.9 - Unspecified symptoms and signs involving the genitourinary system Category: Medical (3) Renal cyst: Code(s): N28.1 - Cyst of kidney, acquired Category: Medical Plan In office urinalysis results reviewed with the patient today; as noted above. Recent retroperitoneal ultrasound results reviewed with the patient today; as noted above. Recent PSA results reviewed with the patient today; as noted above. PCPT risk calculator results reviewed with the patient today. Discussed at length potential causes for lower urinary tract symptoms and elevated PSA. Discussed further treatment options for elevated PSA to include surveillance monitoring verses MRI of the prostate verses trial of finasteride versus prostate biopsy; risks and benefits of these interventions were discussed at length. Discussed findings of potential bladder clot verses mass; discussed further assessment evaluation with in office cystoscopy. Will redraw PSA; no sex the night before, no caffeine morning of, and no heavy lifting 1-2 days prior as patient reports he did not follow they specific instructions as discussed at last office visit. Continue Flomax as discussed and prescribed. Follow-up in office cystoscopy with PSA to be completed prior; or sooner with any issues, concerns, and or questions. Orders: Orders AMB Urinalysis Automated Today Z13.9 - Encounter for screening, unspecified AMB Post Void Residual by ultrasound Today R39.9 - Unspecified symptoms and signs involving the genitourinary system Patient Instructions: The patient had an opportunity to ask questions regarding the treatment plan. All questions were answered. Physical exam, labs, and imaging were discussed and reviewed in detail. As well as risks, benefits, and discussion of treatment choices. No major barriers to understanding were identified. The patient expressed understanding and agreement with the above treatment plan. The patient was made aware they should contact our office by phone for worsening of their current condition, the appearance of new symptoms, or with any questions or concerns. Compliance is encouraged with any medications and follow up testing that is ordered. It is a privilege to be allowed the opportunity to participate in? your urological care.? Again, if you have any questions or concerns If you have any questions or concerns please do not hesitate to contact me. The office is [phone]. This note is constructed using voice recognition software. While every effort has been made to ensure accuracy rock breaker errors may have been included. Yours sincerely, MICHAEL Harper Coding Level of Care Code Est Pt Level 4 (09390) Diagnoses Elevated PSA R97.20 Lower urinary tract symptoms R39.9 Renal cyst N28.1 CPT Codes Post Residual Void - PVR CPT Code: 59583-Qsvj Void Residual by ultrasound ([id number]) Time Spent (min) 30
== END 2024-04-10 15:45 | disposition home or self-care (01) ==
PROVIDERS: PCP Internal Medicine; Visit Provider Nurse Practitioner Family
DX: R97.20 Elevated prostate specific antigen [PSA] (principal); R39.9 Unspecified symptoms and signs involving the genitourinary system; N28.1 Cyst of kidney, acquired; Z13.9 Encounter for screening, unspecified
CPT/HCPCS: 99214

== ENCOUNTER → 2024-04-10 14:07 | Outpatient (BNVA) | payer MEDICAID, SELFPAY | PROVIDERS: PCP Internal Medicine; Visit Provider Nurse Practitioner Family | DX: R97.20 Elevated prostate specific antigen [PSA] (principal); R39.9 Unspecified symptoms and signs involving the genitourinary system; N28.1 Cyst of kidney, acquired | CPT/HCPCS: 51798; 81003; 99212 ==

== ENCOUNTER 2024-04-23 10:58 | Outpatient (REF) | payer MEDICAID, SELFPAY ==
[2024-04-23 12:58] LABS: Prostate Specific Antigen 7.63 ng/mL (<0.05-4.0)
== END 2024-04-23 10:59 | disposition home or self-care (01) ==
LOC: HO.HHCL 10:58
PROVIDERS: Visit Provider Urology
DX: R35.1 Nocturia (principal); Z12.5 Encounter for screening for malignant neoplasm of prostate
CPT/HCPCS: 36415; 84153

== ENCOUNTER 2024-04-27 10:12 | Outpatient (AMB) | payer MEDICAID, SELFPAY ==
--- NOTE | 2024-04-27 10:23 | MHC.OFFVIS ---
Intake Visit Reasons: cysto/PSA(psa?) Intake Note: Patient is Present for Cystoscopy Urology Med: Tamsulosin Antibiotic Allergy:None Blood Thinner: None URO- G Disposable Cystoscope lot: [id number] exp:12/08/2026 Valve Mechanic Required: Yes Valve Mechanic Language: Uruguayan Allergies metformin Allergy (Verified 04/27/24 10:24) Rash HPI Comments Details: Magan is a pleasant male. Uruguayan speaking. He is a patient Dr. Zendejas. He is seen for the following urologic conditions - incomplete bladder emptying - lower urinary tract symptoms Cystoscopy with prostate regrowth on the patient's right lobe. This would be consistent with findings on imaging Six-month follow-up Lower urinary tract symptoms Prior TURP with Dr. Knox Recent imaging showed midline posterior bladder mass 2.9 cm Elevated PSA - 12/17 6.2, 02/14 6.4 PSA free 16% PFSH Medical History Diabetes BPH (benign prostatic hyperplasia) Hypertension Surgical History Hx of colonoscopy Hx of colonoscopy Family History Father Parkinsons Mother No problems noted. Social History Household Members: Spouse, Family and Children Alcohol intake: never Cigarettes Per Day: 7 Review of Systems Const Denies chills and Denies fever(s) Card Reports no additional complaints and Denies syncope Resp Denies cough GI Denies abdominal pain and Denies heartburn Reports as per HPI and Denies change in libido Neuro Denies syncope Psych Denies change in libido Endo Denies change in libido Physical Exam Const General: cooperative, healthy appearing, comfortable and no acute distress Orientation/consciousness: patient oriented x3 HEENT Face and sinus: Yes normal facial exam Mouth: moist mucous membranes Neck Neck: Yes normal visual inspection, Yes full ROM and Yes trachea midline Chest Chest palpation & inspection: normal inspection of the chest Resp Effort & Inspection: normal respiratory effort, able to speak in complete sentences and no respiratory distress GI Inspection: Yes normal to inspection Back/Spine/Pelvis Cervical Spine: normal cervical lordosis Thoracic/Lumbar Spine: thoracic and lumbar spine normal to inspection Skin General skin exam: no rashes or lesions noted Neuro General: patient oriented x3, gait normal, tone normal and moves all extremities Extrem General: Yes normal to inspection and Yes capillary refill normal Office Procedures Cystoscopy Consent Discussed risk and benefit or proposed procedure with the patient. Information consent for procedure given to the patient. Discussed technical aspects, risks, benefits and alternatives in full. Addressed all of the patient's questions and concerns regarding the procedure. The patient demonstrated knowledge and understanding. They wish to proceed with this procedure. Preparation The patient was prepped in the usual manner. A coremaker machine was present and in the room. Genitalia was prepped with betadine solution in a sterile manner. Lidocaine Jelly 2% was placed into the urethra and 16Fr flexible Olympus cystoscope was inserted into the meatus after adequate lubrication. Procedure Cystoscopy performed using a disposable Urovue digital 16 [place] cystoscope. Meatus normal position Urethra anterior and posterior urethra normal Prostatic Urethra TURP defect with regrowth right side Bladder examination with retroflexion of cystoscope Bladder Orifices normal shape and position Bladder Capacity medium Trabeculations grade 1/2 Cellule Formation yes Diverticulum Formation - Mucosal Erythema - Bladder Tumor - [id number] DISPOSABLE SCOPE URO-G FLEXIBLE SCOPE Procedure code (CPT) selection complete Office Meds lidocaine HCl 2 % mucosal jelly in applicator Performing Provider: Giovani Gaona MD [place]forming [place] [facility] Administered by: Saqib Bravo LPN on 04/27/24 11:22 Dose Route Admin Location Dispensed Lot Number Expiration Date ND Android Ui Developer 10 mL intra-urethral 10 mL nitrofurantoin monohydrate/macrocrystals 100 mg capsule Performing Provider: Giovani Gaona MD Performing Location[place] [facility] Administered by: Saqib Bravo LPN on 04/27/24 11:22 Dose Route Admin Location Dispensed Lot Number Expiration Date NDC Android Ui Developer 100 mg PO 1 cap naproxen 500 mg tablet Performing Provider: Giovani Gaona MD Performing Location: [facility] Administered by: Saqib Bravo LPN on 04/27/24 11:22 Dose Route Admin Location Dispensed Lot Number Expiration Date NDC Android Ui Developer 500 mg PO 1 tab Results AMB Urinalysis, Automated UA Leukoctes 0 Niecy/uL Last Edit by Dalila Pitts, A on 04/27/24 11:25 UA Nitrite Negative Last Edit by Dalila Pitts, A on 04/27/24 11:25 UA Urobilinogen 0.2 mg/dL Last Edit by Dalila Pitts, RMA on 04/27/24 11:25 UA Protein 0 mg/dL Last Edit by Dalila Pitts, A on 04/27/24 11:25 UA pH 5.0 Last Edit by Dalila Pitts, RMA on 04/27/24 11:25 UA Blood 10 Efrain/uL Last Edit by Dalila Pitts, RMA on 04/27/24 11:25 UA Specific [place] 1.015 Last Edit by Dalila Pitts A on 04/27/24 11:25 UA Ketone Negative Last Edit by Dalila Pitts, A on 04/27/24 11:25 UA Bilirubin 0 mg/dL Last Edit by Dalila Pitts A on 04/27/24 11:25 UA Glucose 500 mg/dL Last Edit by Dalila Pitts, A on 04/27/24 11:25 Results Reviewed Results Reviewed: Laboratory Last Values Urine pH (Auto) 5.0 04/27/24 11:25 Specific [place] (Auto) 1.015 04/27/24 11:25 Urine Protein (Auto) 0 mg/dL 04/27/24 11:25 Glucose (UA)(Auto) 500 mg/dL 04/27/24 11:25 Urine Ketones (Auto) Negative 04/27/24 11:25 Urine Blood (Auto) 10 Efrain/uL 04/27/24 11:25 Urine Nitrite (Auto) Negative 04/27/24 11:25 Urine Bilirubin (Auto) 0 mg/dL 04/27/24 11:25 Urine Urobilinogen (Auto) 0.2 mg/dL 04/27/24 11:25 Leukocyte Esterase (Auto) 0 Niecy/uL 04/27/24 11:25 Assessment & Plan Assessment & Plan (1) Elevated PSA: Code(s): R97.20 - Elevated prostate specific antigen [PSA] Category: Medical (2) Lower urinary tract symptoms: Code(s): R39.9 - Unspecified symptoms and signs involving the genitourinary system Category: Medical Plan Six-month follow-up Orders: Orders Prostate Specific Antigen 04/23/24 R35.1 - Nocturia AMB Urinalysis Automated Today Z13.9 - Encounter for screening, unspecified PSA,Total (Free>4and<10) 6 Months R39.9 - Unspecified symptoms and signs involving the genitourinary system AMB Cystoscopy Today R39.9 - Unspecified symptoms and signs involving the genitourinary system, R97.20 - Elevated prostate specific antigen [PSA] Patient Instructions: Imaging studies, laboratory and physical exam results were discussed and reviewed in detail. No major barriers to patient understanding were identified. An opportunity to ask questions regarding the treatment plan was provided. All questions were answered. The patient expressed understanding and agreement with the above treatment plan. The patient is aware they should contact our office by phone for worsening of their current condition or the appearance of new urologic symptoms. Compliance is encouraged with any medications and followup testing that is ordered. It is a privilege to participate in the urologic care of your patient. If you have any questions or concerns regarding treatment for the above conditions, or other urologic issues, please do not hesitate to contact me. The office telephone contact is [phone]. This note is constructed using voice recognition software. While every effort has been made to ensure accuracy crnp errors may have been included. Yours sincerely, Dr Giovani Gaona MD, [facility]rology Providers of Expert, Compassionate Care for the Genitourinary System Coding Level of Care Code Est Pt Level 3 (43253) Diagnoses Elevated PSA R97.20 Lower urinary tract symptoms R39.9 CPT Codes Cystoscopy - CPT: 12869-Ljuszhtmeo ([id number])
== END 2024-04-27 11:47 | disposition home or self-care (01) ==
PROVIDERS: PCP Internal Medicine; Referring Provider Internal Medicine; Visit Provider Urology
DX: R97.20 Elevated prostate specific antigen [PSA] (principal); R39.9 Unspecified symptoms and signs involving the genitourinary system; Z13.9 Encounter for screening, unspecified
CPT/HCPCS: 52000; 99213

== ENCOUNTER → 2024-04-27 10:12 | Outpatient (BNVA) | payer MEDICAID, SELFPAY | PROVIDERS: PCP Internal Medicine; Visit Provider Urology | DX: R97.20 Elevated prostate specific antigen [PSA] (principal); R39.9 Unspecified symptoms and signs involving the genitourinary system; N32.89 Other specified disorders of bladder | CPT/HCPCS: 52000; 81003; 99212 ==

== ENCOUNTER 2024-05-07 09:47 | Outpatient (REF) | payer MEDICAID, SELFPAY ==
[2024-05-07 11:55] LABS: Cholesterol 178 mg/dL (<200); HDL Cholesterol 26 mg/dL (>40); LDL Cholesterol Calculated 112 mg/dL (<100); Triglycerides 200 mg/dL (<150)
[2024-05-07 12:36] LABS: Reflex LDLD? No
== END 2024-05-07 09:48 | disposition home or self-care (01) ==
LOC: HO.HHCL 09:47
PROVIDERS: Visit Provider Internal Medicine
DX: I10 Essential (primary) hypertension (principal); E11.65 Type 2 diabetes mellitus with hyperglycemia
CPT/HCPCS: 36415; 80061

== ENCOUNTER 2025-01-17 08:35 | Outpatient (REF) | payer MEDICAID, SELFPAY ==
[2025-01-17 11:42] LABS: Creatinine Urine 109.08 mg/dL; Microalbum/Creatinine Ratio Ur 36.6 ug/mg cr (<30)
[2025-01-17 11:54] LABS: PSA,Total (Free>4and<10) 8.58 ng/mL (0.00-4.00)
[2025-01-17 12:06] LABS: Alanine Aminotransferase 18 U/L (0-40); Albumin Level 4.1 g/dL (3.5-5.0); Alkaline Phosphatase 77 U/L (39-117); Anion Gap 11 (12-20); Aspartate Amino Transferase 18 U/L (5-37); Bilirubin Total 0.4 mg/dL (0.0-1.0); Blood Urea Nitrogen 12 mg/dL (9-16); Calcium 9.4 mg/dL (8.4-10.2); Carbon Dioxide 27 mmol/L (22-29); Chloride 105 mmol/L (96-108); Estimated Glomerular Filt Rate > 60; Glucose Random 149 mg/dL (60-115); Sodium 138 mmol/L (135-145); Total Protein 7.8 g/dL (6.5-8.0)
[2025-01-18 11:29] LABS: Free Prostate Spec Ag 1.5 ng/mL; Percent Free Prostate Spec Ag 17 % (calc) (>25); Prostate Specific Ag Total 8.7 ng/mL (< OR = 4.0)
== END 2025-01-17 08:36 | disposition home or self-care (01) ==
LOC: HO.HHCL 08:35
PROVIDERS: Internal Medicine; Visit Provider Nurse Practitioner Family
DX: E11.65 Type 2 diabetes mellitus with hyperglycemia (principal); R39.9 Unspecified symptoms and signs involving the genitourinary system
CPT/HCPCS: 36415; 80053; 82043; 82570; 84153; 84154

== ENCOUNTER 2025-01-21 08:25 | Outpatient (REF) | payer MEDICAID, SELFPAY ==
[2025-01-21 16:56] LABS: Urine Cytology See Pathology rpt
--- OUTSIDE RECORDS SUMMARY | 2025-01-21 18:03 | XMS_ITS | Clinical Summary ---
Author Organization [employer] Address [address] [place] [address] 7 [place] [address] Care Team Providers Care Cocktail Waitress Name Role Phone Clari Lemons MD Primary Care Provide r Allergies Active Allergy Reactions Criticality Noted Date Comments Metformin 10/08/2020 Other reaction(s): Hives / Skin Rash Medications Acetaminophen 500 MG capsule take 2 capsule by oral route every 8 hours as needed 2 Active hydrOXYzine HCl (Atarax) 25 MG tablet take 1 tablet by oral route 2 times every day as needed 0 Active Melatonin 10 MG capsule take one at bed time 1 Active triamcinolone (Kenalog) 0.1 % cream apply by topical route 2 times every day a thin layer to the affected area(s) 0 Active clotrimazole (Lotrimin) 1 % creamIndications :Tinea pedis, unspecified laterality Apply to the affected area(s) and surrounding area(s) of skin twice daily in the morning and in the evening 30 g 2 Active clotrimazole-bet amethasone (Lotrisone) cream APPLY TOPICALLY TWICE DAILY FOR 28 DAYS 45 g 3 Active omeprazole (PriLOSEC) [address] Armando ns:Gastroesophag eal reflux disease, unspecified whether esophagitis present Take 1 capsule (20 mg) by mouth before breakfast. Do not crush or chew. 30 capsule 11 4 Active Blood Pressure Monitoring (Omron 3 Series BP Monitor) device USE TO CHECK BLOOD PRESSURE EVERY DAY 1 each 4 Active glipiZIDE XL (Glucotrol XL) 10 MG 24 hr tabletIndication s:Type 2 diabetes mellitus with hyperglycemia, without long-term current use of insulin ([facility]) TAKE 1 TABLET BY MOUTH TWICE DAILY WITH MEALS 180 tablet 1 4 Active amLODIPine (Norvasc) 10 MG tabletIndication s:Hypertension, unspecified type TAKE 1 TABLET BY MOUTH EVERY MORNING 90 tablet 1 4 Active atorvastatin (Lipitor) 20 MG tabletIndication s:Type 2 diabetes mellitus with hyperglycemia, without long-term current use of insulin (CMS/HCC) TAKE 1 TABLET BY MOUTH EVERY DAY 90 tablet 1 4 Active Blood Glucose Monitoring Suppl (FreeStyle Oriental Lite) w/Device kitIndications:T ype 2 diabetes mellitus with hyperglycemia, without long-term current use of insulin ([facility]) Use to test blood sugar 2 times daily 1 kit 4 Active glucose blood (FREESTYLE LITE) test stripIndications :Type 2 diabetes mellitus with hyperglycemia, without long-term current use of insulin (CMS/HCC) USE DIRECTED TO TEST BLOOD SUGAR EVERY DAY 100 strip 3 4 Active D3 Super Strength 50 MCG (2000 UT) capsule TAKE 1 CAPSULE BY MOUTH EVERY DAY 90 capsule 1 4 Active Easy Touch Lancets 33G/Twist misc Inject 1 each under the skin Once per day. TEST BLOOD SUGAR EVERY DAY 100 each 5 5 Active tamsulosin (Flomax) 0.4 MG 24 hr capsuleIndicatio ns:Benign prostatic hyperplasia with urinary frequency TAKE 1 CAPSULE BY MOUTH AT BEDTIME 90 capsule 5 Active empagliflozin (Jardiance) 10 MGIndications:Ty pe 2 diabetes mellitus with hyperglycemia, without long-term current use of insulin ([facility]) Take 1 tablet (10 mg) by mouth Once per day. 90 tablet 5 12/18/19 26 Active olmesartan (BENIcar) 20 MG tabletIndication s:Primary hypertension Take 1 tablet (20 mg) by mouth Once per day. 30 tablet 11 5 12/18/19 Active Active Problems Problem Noted Date Diagnosed Date Colon cancer screening 12/18/2024 Muscle spasm 09/04/2024 Assessment & Plan (09/04/2024 4:24 PM EST): Apply heat on affected area Flexeril prescribed patient is aware of side effect somnolence Acetaminophen PRN Gross hematuria 02/02/2024 Assessment & Plan (02/02/2024 4:12 PM EDT): Please do not miss appointment with urology Nocturia 10/05/2023 Tinea corporis 07/01/2023 Backache 06/24/2023 Allergic cough 06/24/2023 Insomnia 09/29/2022 Plantar fasciitis 09/29/2022 Tinea pedis of right foot 09/29/2022 Benign prostatic hyperplasia 07/14/2018 Diabetes mellitus 07/14/2018 Assessment & Plan (12/18/2024 12:21 PM EST): Diabetes is: not controlled - Lab Results Component Value Date HGBA1C 9.2 (A) 12/18/2024 HGBA1C 7.1 (A) 09/04/2024 HGBA1C 7.8 (A) 05/01/2024 - Lab Results Component Value Date MICROALBUR 0.9 07/23/2022 CREATININE 1.04 07/31/2023 -Changes: Extensive counseling about diabetic diet done today, I advised patient to take his medication as prescribed, I added today Jardiance 10 mg daily - Diabetic eye exam: Up-to-date - Diabetic foot exam: Pending - Continue lifestyle modifications - Follow up: 3 months Assessment & Plan (05/01/2024 10:48 AM EDT): Diabetes is: not controlled but improved - Lab Results Component Value Date HGBA1C 7.8 (A) 05/01/2024 HGBA1C 8.3 (A) 12/27/2023 HGBA1C 7.2 (A) 10/05/2023 - Lab Results Component Value Date MICROALBUR 0.9 07/23/2022 CREATININE 1.04 07/31/2023 -Changes: none - Diabetic eye exam:up to date - Diabetic foot exam:up to date - Continue lifestyle modifications - Continue current medications - Follow up: 3 months Assessment & Plan (02/02/2024 4:13 PM EDT): Diabetes is: not controlled - Lab Results Component Value Date HGBA1C 8.3 (A) 12/27/2023 HGBA1C 7.2 (A) 10/05/2023 HGBA1C 8.4 (A) 07/01/2023 - Lab Results Component Value Date MICROALBUR 0.9 07/23/2022 CREATININE 1.04 07/31/2023 -Changes: I went up on pioglitazone to 15mg BID (patient prefer to take it like this instead of a 30mg pill) continuet with rest of medications - Diabetic eye exam:up to date - Diabetic foot exam:up to date - Continue lifestyle modifications - Continue current medications - Follow up: 3 months Assessment & Plan (12/27/2023 9:33 AM EST): Diabetes is: not controlled - Lab Results Component Value Date HGBA1C 8.3 (A) 12/27/2023 HGBA1C 7.2 (A) 10/05/2023 HGBA1C 8.4 (A) 07/01/2023 - Lab Results Component Value Date MICROALBUR 0.9 07/23/2022 CREATININE 1.04 07/31/2023 -Changes: counseling about diabetic diet today - Diabetic eye exam:up to date - Diabetic foot exam:up to date - Continue lifestyle modifications - Continue current medications - Follow up: 3 months Assessment & Plan (10/05/2023 10:46 AM EST): - Lab Results Component Value Date HGBA1C 7.2 (A) 10/05/2023 HGBA1C 8.4 (A) 07/01/2023 HGBA1C 8.5 (A) 04/05/2023 - Lab Results Component Value Date MICROALBUR 0.9 07/23/2022 CREATININE 1.04 07/31/2023 - Diabetic eye exam: up to date - Diabetic foot exam: up to date - Continue lifestyle modifications - Continue current medications - Assessment & Plan (07/01/2023 11:07 AM EDT): A1c not at goal - Lab Results Component Value Date HGBA1C 8.4 (A) 07/01/2023 HGBA1C 8.5 (A) 04/05/2023 HGBA1C 8.4 (H) 04/05/2023 - Lab Results Component Value Date MICROALBUR 0.9 07/23/2022 CREATININE 0.76 04/05/2023 - Diabetic eye exam: up to date - Diabetic foot exam: up to date - Continue lifestyle modifications - C/w glipizide 10mg BID, jardiance 25mg daily I added today pioglitazone 15mg daily, he declines for now trulicity Assessment & Plan (05/10/2023 11:49 AM EDT): Glucose levels are improving Diet counseling done today Labs where reviewed with patient Continue with current medication regimen Continue monitoring glucose at home, bring log to next appointment Assessment & Plan (04/05/2023 11:03 AM EDT): Lab Results Component Value Date HGBA1C 8.5 (A) 04/05/2023 HGBA1C 9.1 (H) 11/24/2021 - Lab Results Component Value Date MICROALBUR 0.9 07/23/2022 - - Diabetic eye exam:up to date - Diabetic foot exam: done today - Continue lifestyle modifications -I increase his jardiance to 25mg daily, c/w glipizide 10mg BID RTC 2 weeks televisit Hypertensive disorder 07/14/2018 Assessment & Plan (12/18/2024 12:20 PM EST): Blood pressure uncontrolled, I will add to his medication regimen olmesartan 20 mg daily Continue with amlodipine 10 mg daily I advised low-sodium diet Patient will come back in 2 weeks for nurse visit for blood pressure check plan is if blood pressure is not at goal to increase olmesartan dose Assessment & Plan (09/04/2024 4:23 PM EST): I advise low Na diet and weight reduction Patient reports he has not being taking his atorvastatin I advise to start taking it daily RTC 2 weeks with nurse if BP is not at goal plan is to add losartan 25mg daily Assessment & Plan (05/01/2024 10:48 AM EDT): Today patient forgot to take his medication I advise: - Aerobic exercise to reduce BP. Initial goal of 30 min walk 3-5x/week. Increase as tolerated. - low-sodium diet (goal: <2g/day) and heart healthy diet such as DASH to reduce BP and prevent ASCVD. - Home BP monitoring 1-2 x day with goal of <140/90. - Seek immediate medical attention for chest pain, palpitations, SOB, syncope, or sudden changes in mental status. - Do not change or discontinue current prescriptions without first consulting health care provider Assessment & Plan (02/02/2024 4:12 PM EDT): - Aerobic exercise to reduce BP. Initial goal of 30 min walk 3-5x/week. Increase as tolerated. - low-sodium diet (goal: <2g/day) and heart healthy diet such as DASH to reduce BP and prevent ASCVD. - Home BP monitoring 1-2 x day with goal of <140/90. - Seek immediate medical attention for chest pain, palpitations, SOB, syncope, or sudden changes in mental status. - Do not change or discontinue current prescriptions without first consulting health care provider Assessment & Plan (12/27/2023 1:19 PM EST): Maintenance: BMP: up to date Lipid Panel: up to date ASCVD Risk: on atorvastatin 20mg daily -today BP not at goal RTC 2 weeks with nurse for BP check if BP not at goal plan is to start lisinopril 10mg - Aerobic exercise to reduce BP. Initial goal of 30 min walk 3-5x/week. Increase as tolerated. - low-sodium diet (goal: <2g/day) and heart healthy diet such as DASH to reduce BP and prevent ASCVD. - Home BP monitoring 1-2 x day with goal of <140/90. - Seek immediate medical attention for chest pain, palpitations, SOB, syncope, or sudden changes in mental status. - Do not change or discontinue current prescriptions without first consulting health care provider Assessment & Plan (10/05/2023 10:45 AM EST): - Aerobic exercise to reduce BP. Initial goal of 30 min walk 3-5x/week. Increase as tolerated. - low-sodium diet (goal: <2g/day) and heart healthy diet such as DASH to reduce BP and prevent ASCVD. - Home BP monitoring 1-2 x day with goal of <140/90. - Seek immediate medical attention for chest pain, palpitations, SOB, syncope, or sudden changes in mental status. - Do not change or discontinue current prescriptions without first consulting health care provider Assessment & Plan (07/01/2023 11:05 AM EDT): - Aerobic exercise to reduce BP. Initial goal of 30 min walk 3-5x/week. Increase as tolerated. - low-sodium diet (goal: <2g/day) and heart healthy diet such as DASH to reduce BP and prevent ASCVD. - Home BP monitoring 1-2 x day with goal of <140/90. Patient instructed if he notice his BP is high at home to contact us back - Seek immediate medical attention for chest pain, palpitations, SOB, syncope, or sudden changes in mental status. - Do not change or discontinue current prescriptions without first consulting health care provider Assessment & Plan (06/10/2023 1:24 PM EDT): I advise to take his medication every day without missing any dose I advise low Na diet For now continue with same medication regimen Assessment & Plan (04/05/2023 11:02 AM EDT): - Aerobic exercise to reduce BP. Initial goal of 30 min walk 3-5x/week. Increase as tolerated. - low-sodium diet (goal: <2g/day) and heart healthy diet such as DASH to reduce BP and prevent ASCVD. - Home BP monitoring 1-2 x day with goal of <140/90. - Seek immediate medical attention for chest pain, palpitations, SOB, syncope, or sudden changes in mental status. - Do not change or discontinue current prescriptions without first consulting health care provider Encounters Date Type Department Care Team Description 01/15/2025 1:00 PM EDT Clinical Support [facility] [address] [place] [address] Fabiola Nascimento RN Primary hypertension 01/15/2025 Travel 01/04/2025 Population Health Risk Score [facility] ([facility] Department [address] [place] [address] [phone] Provider, Population Health Generic 01/01/2025 1:30 PM EDT Clinical Support [facility] [address] [place] [phone] Fabiola Nascimento RN Primary hypertension 01/01/2025 Travel 12/18/2024 9:15 AM EST Office Visit [address] [address] Clari Lemons MD Colon cancer screening (Primary Dx); Type 2 diabetes mellitus with hyperglycemia, without long-term current use of insulin ([facility]); Primary hypertension 12/18/2024 Travel 12/13/2024 Telephone [facility] [address] [place] [phone] Clari Lemons MD Chart Prep 12/04/2024 Patient Outreach [address] [address] Clari Lemons MD Pre-visit Planning (SDOH screening negative and tobacco screening positive) 11/26/2024 Refill [facility] [address] [place] [address] [phone] Clari Lemons MD Benign prostatic hyperplasia with urinary frequency 11/06/2024 Refill [facility] [address] [place], [place] [phone] Clari Lemons MD from Last 3 Months Immunizations Name Administration Dates Next Due Influenza injectable quadriv alent IIV4 with preservative 10/30/2019,07/14/2018 Influenza injectable quadriv alent preservative free 10/05/2023,07/22/2022,08/05/2021 Moderna Covid-19 Vaccine 12+ 03/06/2021,02/07/20 21 TD (adult), 2 Lf tetanus tox oid, preservative free, adsorbed 07/22/2022 Family History Medical History Relation Name Comments Hyperlipidemia Mother Relation Name Status Comments Mother Social History Tobacco Use Types Packs/Day Years Used Date Smoking Tobacco: Former Cigarettes Passive Smoke Exposure: Past Smokeless Tobacco: Never Tobacco Cessation:Counseling Given: Not Answered Alcohol Use Standard Drinks/Week Comments Not Currently 0 (1 standard drink = 0.6 oz pur e alcohol) Depression Answer Date Recorded Patient Health Questionnaire-9 Score 0 05/01/2024 Patient Health Questionnaire-9 Score 0 05/01/2024 Last PHQ-9: Questionnaire Data Not on file 0 05/01/2024 Housing Stability Answer Date Recorded What is your housing situation today? I have jamal guadarrama 08/10/[address] you li ve. Do you have problems with any of the following? None of the above 08/10/2023 Food Insecurity Answer Date Recorded Within the past 12 months, y ou worried that your food would run out before you got money to buy more: Never True 08/10/2023 Within the past 12 months,th e food you bought just didn't last and you didn't have enough money to get more: Never True Transportation Answer Date Recorded In the past 12 months, has l ack of transportation kept you from medical appts, meetings, work or from getting things needed for daily living? No 01/24/2024 Utilities Answer Date Recorded In the past 12 months, has t he electric, gas, oil or water company threatened to shut off services in your home? No 08/10/2023 Depression Answer Date Recorded Patient Health Questionnaire-2 Score 0 05/01/2024 Internet Access Answer Date Recorded Internet Access Q1 Yes 12/04/2024 Internet Access Q2 Not on file 12/04/2024 Sex and Gender Information Value Date Recorded Sex Assigned at Male 08/23/2022 10:34 AM EDT Legal Sex Male 10:34 AM EDT Gender Identity Male 08/23/2022 10:34 AM EDT Sexual Orientation Choose not to disclose 2021 10:34 AM EDT Last Filed Vital Signs Vital Sign Reading Time Taken Comments Blood Pressure 151/90 01/15/2025 1:24 PM EDT Pulse 76 01/15/2025 1:24 PM EDT Temperature 36.5 ??C (97.7 ??F) 12/18/2024 9:24 AM ES T Respiratory Rate 18 12/18/2024 9:24 AM EST Oxygen Saturation 97% 12/18/2024 9:24 AM EST Inhaled Oxygen Concentration - - Weight 81.4 kg (179 lb 6.4 oz) 12/18/2024 9:24 A M EST Height 167.6 cm (5' 6 ) 12/18/2024 9:24 AM EST Body Mass Index 28.96 12/18/2024 9:24 AM EST Plan of Treatment Upcoming Encounters Date Type Department Care Team (Late st Contact Info) Description 01/29/2025 2:00 PM EDT Clinical Support [facility] [address] [place] [phone] 03/12/2025 10:00 AM EDT Office Visit [facility] [address] [place] [phone] Clari Lemons MD [address] [place] [address] Health Maintenance Due Date Last Done Comments CT Colonography 1962 FIT DNA/Cologuard 1962 FIT 1962 FOBT 1962 HIV Screening 1962 Sigmoidoscopy 1962 Hepatitis C Screening 1980 Pneumococcal Vaccine: 50+ Years (1 of 2 - PCV) 1981 Zoster Vaccines (1 of 2) 2012 DTaP/Tdap/Td Vaccines (1 - Tdap) 07/23/2022 07/22/2022 Colonoscopy 02/18/2024 02/17/2021 Colorectal Cancer Screening 02/18/2024 Diabetes: Foot Exam 04/05/2024 04/05/2023, 3 COVID-19 Vaccine ( season) 2024 03/06/2021, 02/06/2021 Influenza Vaccine (#1) 2024 3, 07/22/2022, 08/05/2021, Additional history exists Diabetes: Hemoglobin A1C 03/17/2025 025, 09/04/2024, 05/01/2024, Additional history exists Depression Screening 05/01/2025 05/01/2024, 05/01/20 Lipid Panel 05/07/2025 05/07/2024, 03/24, 11/24/2021, Additional history exists SDOH Screening 12/04/2025 12/04/2024 Alcohol/Substance Use Screening 12/18/2025 12/18/2024 Tobacco Screening 12/18/2025 12/18/2024 Diabetes: Urine Protein Screening 01/17/2026 01/17/2025, 04/05/2023, 07/23/2022, Additional history exists Eye Exam 01/17/2026 01/18/2024, 12/23, 01/18/2024, Additional history exists RSV Patients and Patients Aged 60 years or older (1 - 1-dose 75+ series) 2037 HIB Vaccines Aged Out No longer eligi ble based on patient's age to complete this topic HPV Vaccines Aged Out No longer eligi ble based on patient's age to complete this topic Hepatitis A Vaccines Aged Out No long er eligible based on patient's age to complete this topic Hepatitis B Vaccines Aged Out No long er eligible based on patient's age to complete this topic IPV Vaccines Aged Out No longer eligi ble based on patient's age to complete this topic Meningococcal Vaccine Aged Out No alexx luz marina eligible based on patient's age to complete this topic RSV under 20 months Aged Out No longe r eligible based on patient's age to complete this topic Rotavirus Vaccines Aged Out No longer eligible based on patient's age to complete this topic Procedures Procedure Name Priority Date/Time Associated Diagnosis Comments COMPREHENSIVE METABOLIC PANEL Routine 01/17/2025 8:40 AM EDT Type 2 diabetes mellitus with hyperglycemia, without long-term current use of insulin (CMS/HCC) ALBUMIN, RANDOM URINE W/CREATININE Routine 01/17/2025 8:40 AM EDT Type 2 diabetes mellitus with hyperglycemia, without long-term current use of insulin (CMS/HCC) POCT GLYCATED HEMOGLOBIN, TOTAL Routine 12/18/2024 9:26 AM EST Type 2 diabetes mellitus with hyperglycemia, without long-term current use of insulin (CMS/HCC) POCT GLUCOSE Routine 12/18/2024 9:26 AM EST Type 2 diabetes mellitus with hyperglycemia, without long-term current use of insulin (CMS/HCC) LIPID PANEL WITH REFLEX TO DIRECT LDL Routine 05/07/2024 9:49 AM EDT Type 2 diabetes mellitus with hyperglycemia, without long-term current use of insulin ([facility]) Primary hypertension HM COLONOSCOPY Routine 02/17/2021 from Last 3 Months or Most Recently Relevant to Health Maintenance Results * (ABNORMAL) Albumin, Random Urine W/Creatinine (01/17/2025 8:40 AM EDT) Creatinine, Urine 109.08 mg/dL [facility] Microalbumin Urine 40.0 mg/L [facility] Microalbum Creatinine Ratio Ur 36.6(H) <30 ug/mg cr [facility] Comment:Albumin/Creatinine R atio Reference Ranges: Normal: < 30 ug/mg creatinine Microalbuminuria: 30 - 300 ug/mg creatinineClinical Albuminuria: > 300 ug/mg creatinine Urine (Urine, Random) 01/17/2025 8:40 AM EDT 01/17/2025 11:03 AM EDT us Clari Zendejas MD LAB URINE ORDERABLES Final Result [facility] [address] [place] [phone] * (ABNORMAL) Comprehensive Metabolic Panel (01/17/2025 8:40 AM EDT) Sodium 138 135 - 145 mmol/L [facility] Potassium 5.0 3.3 - 5.1 mmol/L [facility] Chloride 105 96 - 108 mmol/L [facility] Carbon Dioxide 27 22 - 29 mmol/L [facility] Anion Gap 11(L) 12 - 20 [facility] Urea Nitrogen (BUN) 12 9 - 16 mg/dL [facility] Creatinine, Serum 0.79 0.5 - 1.4 mg/dL [facility] Estimated Glomerular Filt Rate >60 [facility] Comment:Chronic Kidney Disea se: Estimated GFR < 60 mL/min/[id number] Kidney Disease: Estimated GFR < 15 mL/min/1.73m2 Glucose 149(H) 60 - 115 mg/dL [facility] Calcium 9.4 8.4 - 10.2 mg/dL [facility] Bilirubin, Total 0.4 0.0 - 1.0 mg/dL [facility] Aspartate Amino Transferase 18 5 - 37 U/L [facility] Alanine Aminotransferase 18 0 - 40 U/L [facility] Total Protein 7.8 6.5 - 8.0 g/dL [facility] Albumin Level 4.1 3.5 - 5.0 g/dL [facility] Alkaline Phosphatase 77 39 - 117 U/L [facility] Blood Venous blood specimen / Unknown 01/17/2025 8:40 AM EDT 01/17/2025 11:06 AM EDT us Clari Zendejas MD LAB BLOOD ORDERABLES Final Result [facility] [address] [place], [place] [phone] * (ABNORMAL) POCT HGB A1C (12/18/2024 9:26 AM EST) Pathologist [facility] Hemoglobin A1C 9.2(A) 4.0 - 6.0 % QC Media Lot # [id number] Lot# Expiration Date Blood 12/18/2024 9:26 AM EST Clari Znedejas MD POINT OF CARE TEST EN TER/EDIT ORDERABLES Final Result * (ABNORMAL) POCT Glucose (12/18/2024 9:26 AM EST) Pathologist [facility] Glucose Blood, POC 322(A) 60 - 200 mg/dL QC Media Lot # [id number] Lot# Expiration Date Blood Capillary blood specimen / Unknown 12/18/2024 9:26 AM EST Clari Zendejas MD POINT OF CARE TEST EN TER/EDIT ORDERABLES Final Result * (ABNORMAL) Lipid Panel with Reflex to Direct LDL (05/07/2024 9:49 AM EDT) Triglycerides 200(H) <150 mg/dL [facility] Comment:Desirable Triglyceri de: less than 150 mg/dLBorderline High Triglyceride 150-199 mg/dLHigh Triglyceride: 200-499 mg/dLVery High Triglyceride: greater than or equal to 5OO mg/dL Cholesterol 178 <200 mg/dL [facility] Comment:Desirable Cholestero l: less than 200 mg/dLBorderline High Cholesterol: 200-239 mg/dLHigh Cholesterol: greater than 239 mg/dL LDL Cholesterol Calculated 112(H) <100 mg/dL [facility] Comment:Desirable LDL: less than 100 mg/dLNear Optimal/Above Optimal LDL: 110- 129 mg/dLBorderline High LDL: 130-159 mg/dLHigh LDL: 160-189 mg/dLVery High LDL: greater than or equal to 190 mg/dL HDL Cholesterol 26(L) >40 mg/dL [facility] Comment:Desirable HDL: great er than 40 mg/dL Note: This HDL assay may give artificially low results in patients with liver disease. Blood 05/07/2024 9:49 AM EDT 05/07/2024 11:04 AM EDT us Clari Zendejas MD LAB BLOOD ORDERABLES Final Result [facility] [address] [place] [address] [phone] * Hm Colonoscopy (02/17/2021) Colonoscopy Normal Normal Historical Provider HEALTH MAINTENANCE Edited Result - Final from Last 3 Months or Most Recently Relevant to Health Maintenance Insurance [facility] F[facility] * Guarantor: Magan Mccoy Account Type Relation to Patient Date of Phone Billing Address Personal/Family Self [address] Care Teams Cocktail Waitress Relationship Specialty Start Date End Date Clari Lemons MD [address] [place] [address] CT PCP - General Family Medicine 07/14/18
--- OUTSIDE RECORDS SUMMARY | 2025-01-21 18:03 | XMS_ITS | Encounter Summary ---
Author Organization [email or web address] [facility] Address [address] [place] [address] 7 [place] [address] Care Team Providers Care Pipeline Superintendent Division Name Role Phone Clari Lemons MD Primary Care Provide r Reason for Visit * Reason Comments Med Refill Encounter Details Date Type Department Care Team (Late Contact Info) Description 06/03/2023 Refill [facility] [address] [place] [phone] Clari Lemons MD [address] [place] [phone] Social History Tobacco Use Types Packs/Day Years Used Date Smoking Tobacco: Every Day Cigarettes Smokeless Tobacco: Never Alcohol Use Standard Drinks/Week Comments Not Currently 0 (1 standard drink = 0.6 oz pur e alcohol) Depression Answer Date Recorded Patient Health Questionnaire-2 Score 2 04/05/2023 Sex and Gender Information Value Date Recorded Sex Assigned at Male 08/23/2022 10:34 AM EDT Legal Sex Male 10:34 AM EDT Gender Identity Male 08/23/2022 10:34 AM EDT Sexual Orientation Choose not to disclose 2021 10:34 AM EDT documented as of this encounter Plan of Treatment Upcoming Encounters Date Type Department Care Team (Late Contact Info) Description 01/29/2025 2:00 PM EDT Clinical Support [facility] [address] [place] [address] [phone] 03/12/2025 10:00 AM EDT Office Visit [address] [phone] Clari Lemons MD [address] [place], [place] [phone] documented as of this encounter Visit Diagnoses Not on filedocumented in this encounter Care Teams Pipeline Superintendent Division Relationship Specialty Start Date End Date Clari Lemons MD [address] [place], [place] [phone] PCP - General Family Medicine 07/14/18 documented as of this encounter
--- OUTSIDE RECORDS SUMMARY | 2025-01-21 18:03 | XMS_ITS | Encounter Summary ---
Author Organization [employer] [facility] Address [address] [place] [address] 7 [place] [address] Care Team Providers Care Propellant Charge Loader Name Role Phone Clari Lemons MD Primary Care Provide r Encounter Details Date Type Department Care Team (Late st Contact Info) Description 06/30/2023 Orders Only [facility] [address] [place] [address] [phone] Provider, MD Mihir Social History Tobacco Use Types Packs/Day Years [...] Description 01/29/2025 2:00 PM EDT Clinical Support [address] [phone] 03/12/2025 10:00 AM EDT Office Visit [address] [phone] Clari Lemons MD [address] [place] [address] [phone] documented as of this encounter Procedures Procedure Name Priority Date/Time Associated Diagnosis Comments URINALYSIS, COMPLETE, WITH REFLEX TO CULTURE Routine 07/31/2023 11:48 PM EDT HIGH SENSITIVITY TROPONIN I Routine 07/31/2023 6:08 PM EDT CBC WITH AUTO DIFFERENTIAL Routine 07/31/2023 6:08 PM EDT LIPASE Routine 07/31/2023 6:08 PM EDT COMPREHENSIVE METABOLIC PANEL Routine 07/31/2023 6:08 PM EDT HM COLONOSCOPY Routine 02/17/2021 documented in this encounter Results * (ABNORMAL) Urinalysis, Complete, with Reflex to Culture (07/31/2023 11:48 PM EDT) Color Urine Yellow [facility] Appearance Urine Clear [facility] PH 5.5 5.0 - 9.0 [facility] Glucose Urine UA >=1000(A) Negative mg/dL [facility] Urine Blood Trace(A) Negative [facility] Specific [place] - Urine 1.020 1.005 - 1.025 [facility] Urine Protein Negative Neg-Trace mg/dL [facility] Urine Ketones Negative Negative mg/dL [facility] Nitrite Urine Negative Negative [facility] Leukocyte Esterase Urine Negative Negative [facility] RBC Urine 0-2 0 - 2 /HPF [facility] Urine WBC 0-5 0 - 5 /HPF [facility] Urine Squamous Epithelial Cell 0-2 0 - 2 /HPF [facility] Urine Bacteria None Seen None Seen [facility] Hyaline Casts, Urine 0-2 0 - 2 /LPF [facility] 07/31/2023 11:4 8 PM EDT 07/31/2023 11:52 PM EDT Narrative [facility] - 08/01/2023 12:02 AM EDT Urine, Clean Catch [facility] External Provider LAB URI NE ORDERABLES Final Result Performing Organization Address [facility] Co de Phone Number [facility] [address] [place] [phone] * High Sensitivity Troponin I (07/31/2023 6:08 PM EDT) [facility] TROPONIN I HIGH SENSITIVITY <2.7 <3.5 - 35.0 ng/L [facility] Comment:The Cosby high sens itivity Troponin-I results should beused in conjunction with other diagnostic information suchas ECG, clinical observations and information, and patientsymptoms to aid in the diagnosis of [place]. 07/31/2023 6:08 PM EDT 07/31/2023 6:11 PM EDT [facility] External Provider LAB BLO OD ORDERABLES Final Result Performing Organization Address [facility] Co de Phone Number [facility] [address] [place] [phone] * (ABNORMAL) CBC auto differential (07/31/2023 6:08 PM EDT) [facility] White Blood Count 13.9(H) 4.8 - 10.8 X10*3/uL [facility] Red Blood Count 5.06 4.60 - 5.80 X10*6/uL [facility] Hemoglobin 15.5 14.0 - 18.0 g/dl [facility] Hematocrit 46.0 42.0 - 52.0 % [facility] Mean Corpuscular Volume 90.9 80.0 - 98.0 fL [facility] Mean Corpuscular Hemoglobin 30.6 27.0 - 33.0 pg [facility] Mean Corpuscular HGB Conc 33.7 31.0 - 36.0 g/dl [facility] Red Cell Distribution Width 14.0 11.0 - 16.0 % [facility] Platelet Count 206 160 - 400 X10*3/uL [facility] Mean Platelet Volume 11.3 9.4 - 12.4 fL [facility] Neutrophils Percent Auto 65.0 45 - 73 % [facility] Imm Gran Pct Auto 0.4 0.0 - 0.4 % [facility] Lymphocytes Percent Auto 24.9 20 - 40 % [facility] Monocytes Percent Auto 7.5 2 - 11 % [facility] Eosinophils Percent Auto 1.9 0 - 4 % [facility] Basophils Percent Auto 0.3 0 - 2 % [facility] NRBC Pct Auto 0.0 0.0 - 0.2 /100WBC [facility] Neutrophils Absolute Auto 9.1(H) 2.0 - 8.3 x10*3/uL [facility] Imm Gran Abs Auto 0.05(H) 0.00 - 0.03 X10*3/uL [facility] Lymphocytes Absolute Auto 3.5 1.2 - 4.9 X10*3/uL [facility] Monocytes Absolute Auto 1.1 0.1 - 1.2 X10*3/uL [facility] Eosinophils Absolute Auto 0.3 0.0 - 0.4 X10*3/uL [facility] Basophils Absolute Auto 0.0 0.0 - 0.2 X10*3/uL [facility] NRBC Abs Auto 0.000 0.0 - 0.012 X10*3/uL [facility] 07/31/2023 6:08 PM EDT 07/31/2023 6:11 PM EDT us [facility] External Provider LAB BLO OD ORDERABLES Final Result [facility] [address] [place] [address] [phone] * Lipase (07/31/2023 6:08 PM EDT) Lipase 17 8 - 78 U/L [facility] 07/31/2023 6:08 PM EDT 07/31/2023 6:11 PM EDT us Generic External Data Provider LAB BLOOD ORDERAB LES Final Result [facility] [address] [place] [phone] [phone] * (ABNORMAL) Comprehensive Metabolic Panel (07/31/2023 6:08 PM EDT) Sodium 138 135 - 145 mmol/L [facility] Potassium 4.8 3.3 - 5.1 mmol/L [facility] Chloride 104 96 - 108 mmol/L [facility] Carbon Dioxide 23 22 - 29 mmol/L [facility] Anion Gap 16 12 - 20 [facility] Urea Nitrogen (BUN) 15 9 - 16 mg/dL [facility] Creatinine, Serum 1.04 0.5 - 1.4 mg/dL [facility] Creatinine Clr Calc Pharmacy 74.1 [facility] Comment:eGFR (calculated fro m the MDRD study equation) and eCrCl(calculated from the Cockcroft-Gault equation) are based ondifferent parameters and may not yield comparable results.If eCrCl result is absurd, please check patient'sheight/weight. Estimated Glomerular Filt Rate >60 [facility] Comment:NOTE: For -Am erican individuals, multiply the result by 1.210.Chronic Kidney Disease: Estimated GFR < 60 mL/min/1.09h7Mmwbho Kidney Disease: Estimated GFR < 15 mL/min/1.73m2 Glucose 105 60 - 115 mg/dL [facility] Calcium 9.9 8.4 - 10.2 mg/dL [facility] Bilirubin, Total 0.3 0.0 - 1.0 mg/dL [facility] Aspartate Amino Transferase 11 5 - 37 U/L [facility] Alanine Aminotransferase 12 0 - 40 U/L [facility] Total Protein 8.3(H) 6.5 - 8.0 g/dL [facility] Albumin Level 4.2 3.5 - 5.0 g/dL [facility] Alkaline Phosphatase 73 39 - 117 U/L [facility] 07/31/2023 6:08 PM EDT 07/31/2023 6:11 PM EDT [facility] External Provider LAB BLO OD ORDERABLES Final Result [facility] [address] [place] [phone] * Colonoscopy (02/17/2021) Colonoscopy Normal Normal Historical Provider HEALTH MAINTENANCE Edited Result - Final documented in this encounter Visit Diagnoses Not on filedocumented in this encounter Care Teams Propellant Charge Loader Relationship Specialty Start Date End Date Clari Lemons MD [address] [place] [phone] PCP - General Family Medicine 07/14/18 documented as of this encounter
--- OUTSIDE RECORDS SUMMARY | 2025-01-21 18:03 | XMS_ITS | Encounter Summary ---
Author Organization [employer] Address [address] [facility] 7t [place] [address] Care Team Providers Care Program Director/Morning Show Host Name Role Phone Clari Lemons MD Primary Care Provide r Reason for Visit * Reason Onset Date Comments New Med Request 11/04/2023 Encounter Details Date Type Department Care Team ([facility] st Contact Info) Description 11/04/2023 Telephone [facility] [address] [place] [address] Clari Leomns MD [address] [place], [place] [phone] New Med Request Social History Tobacco Use Types Packs/Day Years Used Date Smoking Tobacco: Every Day Cigarettes Smokeless Tobacco: Never Alcohol Use Standard Drinks/Week Comments Not Currently 0 (1 standard drink = 0.6 oz pur e alcohol) Housing Stability Answer Date Recorded What is [...] from getting things needed for daily living? Yes, it has kept me from medical appointments or getting medications. 07/31/2023 Utilities Answer Date Recorded In the past [...] AM EDT documented as of this encounter Miscellaneous Notes * Telephone Encounter - Marisol Spear - 11/04/2023 11:32 AM EST Tc from pt requesting Omeprazole, pt stated already discuss med with PCP. documented in this encounter Plan of Treatment Upcoming Encounters Date Type Department Care Team (Late st Contact Info) Description 01/29/2025 2:00 PM EDT Clinical Support [facility] [address] [place] [phone] 03/12/2025 10:00 AM EDT Office Visit [facility] [address] [place] [phone] Clari Lemons MD [address] [place] [address] documented as of this encounter Visit Diagnoses Not on filedocumented in this encounter Care Teams Program Director/Morning Show Host Relationship Specialty Start Date End Date Clari Lemons MD [address] [place] [phone] PCP - General Family Medicine 07/14/18 documented as of this encounter
== END 2025-01-21 08:26 | disposition home or self-care (01) ==
LOC: HO.LNP 08:25
PROVIDERS: PCP Internal Medicine; Visit Provider Nurse Practitioner Family
DX: R39.9 Unspecified symptoms and signs involving the genitourinary system (principal); R97.20 Elevated prostate specific antigen [PSA]; Z13.9 Encounter for screening, unspecified
CPT/HCPCS: 81003; 88112; 99212

== ENCOUNTER 2025-01-21 08:25 | Outpatient (AMB) | payer MEDICAID, SELFPAY ==
--- NOTE | 2025-01-21 08:38 | A.OFFVIS_ITS ---
Intake Visit Reasons: 6m/PVR and psa lab Intake Note: Patient presents today for a follow-up on: Elevated PSA, LUTS, and Ultrasound PSA: 8.7 Urology Medications: Tamsulosin Allergies to Antibiotic: No Known Allergies Blood Thinner: None Marketing And Promotions Manager Required: Yes Marketing And Promotions Manager Name: PHIL RUBI[facility] and [id number] Accompanied by: Self / Same As Patient Allergies metformin Allergy (Verified 01/21/25 09:29) Rash Medication List - Last Reconciled 01/21/25 by TEA Harper- amlodipine 10 mg PO DAILY atorvastatin 20 mg PO DAILY cholecalciferol (vitamin D3) (Vitamin D3) 50 mcg PO DAILY empagliflozin (Jardiance) 25 mg PO QAM glipizide ER 10 mg PO DAILY omeprazole 40 mg PO DAILY pioglitazone (Actos) 15 mg PO DAILY tamsulosin 0.4 mg PO BEDTIME 90 days HPI Comments Details: Magan is a pleasant 64-year-old Citizen [place]-speaking male patient of Dr. Tani Zendejas. He has a past medical history of diabetes, hypertension, and BPH. He presents to the office today for follow-up of his lower urinary tract symptoms and elevated PSA. In discussion with the patient today he reports to be doing and feeling well. He reports compliance with Flomax 0.4 mg daily however is enquiring an increase in dosage as he has been noting increasing weak urinary stream and feeling of incomplete bladder emptying. Of note, during last office visit 05/16 patient underwent an office cystoscopy with Dr. Gaona that noted prostate regrowth on patient's right lobe consistent with findings on imaging. Recent PSA results reviewed with the patient today as noted and trended below: Lower urinary tract symptoms Prior TURP with Dr. Knox Recent imaging showed midline posterior bladder mass 2.9 cm Elevated PSA - 12/17 6.2, 02/14 6.4 PSA free 16%, 05/16 7.6, 01/15 8.6 % free PSA 17% We discussed potential causes of lower urinary tract symptoms patient was experiencing as well as elevated PSA. We discussed further treatment options and risks and benefits of these treatment options. He otherwise denies incontinence, nocturia, gross/visible hematuria, dysuria, foul smelling urine, flank pain, fever, and or chills. In office urinalysis results reviewed with the patient today. We discussed at length importance of management and diabetes for improvement for improvement in lower urinary tract symptoms as well as overall health and well-being. [facility] Medical History Diabetes BPH (benign prostatic hyperplasia) Hypertension Surgical History Hx of colonoscopy Hx of colonoscopy Family History Father Parkinsons Mother No problems noted. Social History Household Members: Spouse, Family and Children Alcohol intake: never Cigarettes Per Day: 7 Review of Systems Const Reports no additional complaints Eyes Reports no additional complaints ENT Reports no additional complaints Card Reports as per HPI Resp Reports no additional complaints GI Reports no additional complaints Reports as per HPI Musc Reports no additional complaints Neuro Reports no additional complaints Endo Reports as per HPI Quirino/Lymph Reports no additional complaints Aller/Immun Reports no additional complaints Physical Exam Const General: cooperative, healthy appearing, comfortable, no acute distress, well developed, alert and awake Orientation/consciousness: patient oriented x3 Limitations: no limitations HEENT Head: Yes normal to inspection, Yes normocephalic and Yes atraumatic Ears: hearing grossly normal bilaterally Eyes General: appearance normal, both eyes and all related structures Neck Neck: Yes normal visual inspection and Yes trachea midline Chest Chest palpation & inspection: normal inspection of the chest Resp Effort & Inspection: normal respiratory effort and able to speak in complete sentences Cardio Rate: regular rate GI Inspection: Yes normal to inspection General: Yes no CVA tenderness Back/Spine/Pelvis Back: no CVA tenderness Skin General skin exam: no rashes or lesions noted Neuro General: patient oriented x3 Extrem General: Yes normal to inspection Psych Appearance: grossly normal and well kempt Mental Status: mental status grossly normal Speech and movement: Normal speech and movement present and Clear speech present Affect: normal affect Attitude: cooperative Thought process: Normal thought process present Thought content: Normal thought content present Insight: Fair insight present (Psych) Judgement: Fair judgement present (Psych) Results AMB Urinalysis, Automated UA Leukoctes 0 Niecy/uL Last Edit by Juan Pablo Olmedo on 01/21/25 09:22 UA Nitrite Last Edit by Juan Pablo Olmedo on 01/21/25 09:22 UA Urobilinogen 0.2 mg/dL Last Edit by Juan Pablo Olmedo on 01/21/25 09:22 UA Protein 15 mg/dL Last Edit by Juan Pablo Olmedo on 01/21/25 09:22 UA pH 5.5 Last Edit by Juan Pablo Olmedo on 01/21/25 09:22 UA Blood 10 Efrain/uL Last Edit by Juan Pablo Olmedo on 01/21/25 09:22 UA Specific [place] 1.015 Last Edit by Juan Pablo Olmedo on 01/21/25 09:22 UA Ketone Last Edit by Juan Pablo Olmedo on 01/21/25 09:22 UA Bilirubin 0 mg/dL Last Edit by Juan Pablo Olmedo on 01/21/25 09:22 UA Glucose 1000 mg/dL Last Edit by Juan Pablo Olmedo on 01/21/25 09:22 Results Reviewed Results Reviewed: Laboratory Last Values Urine pH (Auto) 5.5 01/21/25 09:21 Specific [place] (Auto) 1.015 01/21/25 09:21 Urine Protein (Auto) 15 mg/dL 01/21/25 09:21 Glucose (UA)(Auto) 1000 mg/dL 01/21/25 09:21 Urine Blood (Auto) 10 Efrain/uL 01/21/25 09:21 Urine Bilirubin (Auto) 0 mg/dL 01/21/25 09:21 Urine Urobilinogen (Auto) 0.2 mg/dL 01/21/25 09:21 Leukocyte Esterase (Auto) 0 Niecy/uL 01/21/25 09:21 Assessment & Plan Assessment & Plan (1) Elevated PSA: Code(s): R97.20 - Elevated prostate specific antigen [PSA] Category: Medical (2) Lower urinary tract symptoms: Code(s): R39.9 - Unspecified symptoms and signs involving the genitourinary system Category: Medical Plan: Plan Risks and benefits regarding trans rectal ultrasound with prostate biopsy were discussed.? Options of continued surveillance, no treatment and biopsy were offered. The risks include but are not limited to, urinary tract infection, sepsis, diffi culty urinating, bleeding into the rectum or bladder that requires intervention and transfusion,and failure to diagnose prostate cancer. The patient understands the options and the risks involved. They wish to proceed. Printed information was provided to ensure he remains off anticoagulation for the appropriate length of time. He may require cardiology or PCP clearance.? An antibiotic will be administered prior to, and following the procedure Plan In office urinalysis results reviewed the patient today; as noted above. Recent PSA results reviewed with the patient today; as noted above. We discussed at length potential causes of elevated PSA as well as further treatment options and risks and benefits of these treatment options. All questions were answered. Continue Flomax will increase to 2 times per day. We discussed antibiotic treatment day before, day of, and day after surgical procedure. Will schedule for prostate biopsy as discussed Follow-up per doctor's orders; or sooner with any issues, concerns, and or questions. Orders: Orders AMB Urinalysis Automated Today Z13.9 - Encounter for screening, unspecified PSA,Total (Free>4and<10) 01/17/25 R39.9 - Unspecified symptoms and signs involving the genitourinary system Medications: New levofloxacin take 1 tablet day before procedure, 1 tablet day of procedure and 1 tablet day after procedure 500 mg PO daily 3 days 3 tabs 0RF Changed From tamsulosin 0.4 mg PO BEDTIME 90 days 90 caps 1RF N40.1 - Benign prostatic hyperplasia with lower urinary tract symptoms, R35.1 - Nocturia To tamsulosin 0.8 mg (2 x 0.4 mg) PO BEDTIME 90 days 180 caps 1RF N40.1 - Benign prostatic hyperplasia with lower urinary tract symptoms, R35.1 - Nocturia Patient Instructions: The patient had an opportunity to ask questions regarding the treatment plan. All questions were answered. Physical exam, labs, and imaging were discussed and reviewed in detail. As well as risks, benefits, and discussion of treatment choices. No major barriers to understanding were identified. The patient expressed understanding and agreement with the above treatment plan. The patient was made aware they should contact our office by phone for worsening of their current condition, the appearance of new symptoms, or with any questions or concerns. Compliance is encouraged with any medications and follow up testing that is ordered. It is a privilege to be allowed the opportunity to participate in? your urological care.? Again, if you have any questions or concerns If you have any questions or concerns please do not hesitate to contact me. The office is [phone]. This note is constructed using voice recognition software. While every effort has been made to ensure accuracy clutch specialist errors may have been included. Yours sincerely, CECIL Harper Coding Level of Care Code Est Pt Level 4 (05752) Diagnoses Elevated PSA R97.20 Lower urinary tract symptoms R39.9
== END 2025-01-21 09:35 | disposition home or self-care (01) ==
LOC: HO.HUSH 08:26
PROVIDERS: PCP Internal Medicine; Visit Provider Nurse Practitioner Family
DX: R97.20 Elevated prostate specific antigen [PSA] (principal); R39.9 Unspecified symptoms and signs involving the genitourinary system; Z13.9 Encounter for screening, unspecified
CPT/HCPCS: 99214

== ENCOUNTER 2025-02-07 07:14 | Outpatient (REF) | payer MEDICAID, SELFPAY ==
--- OUTSIDE RECORDS SUMMARY | 2025-02-07 07:17 | XMS_ITS | Encounter Summary ---
Author Organization [employer] [facility] Address [address] [place] [address] 7 [place] [address] Care Team Providers Care Garment Inspector Name Role Phone Clari Lemons MD Primary Care Provide r Reason for Visit * Reason Comments Med Refill Encounter Details Date Type Department Care Team (Late Contact Info) Description 06/03/2023 Refill [facility] [address] [place], [place] [phone] Clari Lemons MD [address] [place] [address] [phone] Social History Tobacco Use Types Packs/Day Years [...] Department Care Team (Late Contact Info) Description 03/12/2025 10:00 AM EDT Office Visit [facility] [address] [place] [address] [phone] Clari Lemons MD [address] [place] [address] [phone] documented as of this encounter Visit Diagnoses Not on filedocumented in this encounter Care Teams Garment Inspector Relationship Specialty Start Date End Date Clari Lemons MD [address] [place] [phone] PCP - General Family Medicine 07/14/18 documented as of this encounter
--- OUTSIDE RECORDS SUMMARY | 2025-02-07 07:17 | XMS_ITS | Encounter Summary ---
Author Organization [employer] [facility] Address [address] [place] [address] 7 [place] [address] Care Team Providers Care Engraver Flatware Name Role Phone Clari Lemons MD Primary Care Provide r Encounter Details Date Type Department Care Team ([facility] Contact Info) Description 06/30/2023 Orders Only [facility] [address] [place] [address] [phone] Provider, MD Mihir Social History Tobacco Use [...] Care Team (Late st Contact Info) Description 03/12/2025 10:00 AM EDT Office Visit [facility] [address] [place] [address] [phone] Clari Lemons MD [address] [place], [place] [phone] documented as of this encounter Procedures Procedure [...] (07/31/2023 11:48 PM EDT) Color Urine Yellow [facility] Appearance Urine Clear [facility] PH 5.5 5.0 - 9.0 [facility] Glucose Urine UA >=1000(A) Negative mg/dL [facility] Urine Blood Trace(A) Negative [facility] Specific [place] - Urine 1.020 1.005 - 1.025 [facility] Urine Protein Negative Neg-Trace mg/dL [facility] Urine Ketones Negative Negative mg/dL [facility] Nitrite Urine Negative Negative [facility] Leukocyte Esterase Urine Negative Negative [facility] RBC Urine 0-2 0 - 2 /HPF [facility] Urine WBC 0-5 0 - 5 /HPF [facility] Urine Squamous Epithelial Cell 0-2 0 - 2 /HPF [facility] Urine Bacteria None Seen None Seen [facility] Hyaline Casts, Urine 0-2 0 - 2 /LPF [facility] 07/31/2023 11:4 8 PM EDT 07/31/2023 11:52 PM EDT Narrative [facility] - 08/01/2023 12:02 AM EDT Urine, Clean Catch us [facility] External Provider LAB URI NE ORDERABLES Final Result Performing Organization Address [facility]/ZIP Co de Phone Number [facility] [address] [place] [phone] * High Sensitivity Troponin I (07/31/2023 6:08 PM EDT) [facility] TROPONIN I HIGH SENSITIVITY <2.7 <3.5 - 35.0 ng/L [facility] Comment:The Cosby high sens itivity Troponin-I results should beused in conjunction with other diagnostic information suchas ECG, clinical observations and information, and patientsymptoms to aid in the diagnosis of [place]. 07/31/2023 6:08 PM EDT 07/31/2023 6:11 PM EDT [facility] External Provider LAB BLO OD ORDERABLES Final Result Performing Organization Address [facility] Co de Phone Number [facility] [address] [place] [address] [phone] * (ABNORMAL) CBC auto differential (07/31/2023 6:08 PM EDT) [facility] White Blood Count 13.9(H) 4.8 - 10.8 X10*3/uL [facility] Red Blood Count 5.06 4.60 - 5.80 X10*6/uL [facility] Hemoglobin 15.5 14.0 - 18.0 g/dl [facility] Hematocrit 46.0 42.0 - 52.0 % [facility] Mean Corpuscular Volume 90.9 80.0 - 98.0 fL [facility] Mean Corpuscular Hemoglobin 30.6 27.0 - 33.0 pg [facility] Mean Corpuscular HGB Conc 33.7 31.0 - 36.0 g/dl [facility] Red Cell Distribution Width 14.0 11.0 - 16.0 % [facility] Platelet Count 206 160 - 400 X10*3/uL [facility] Mean Platelet Volume 11.3 9.4 - 12.4 fL [facility] Neutrophils Percent Auto 65.0 45 - 73 % [facility] Imm Gran Pct Auto 0.4 0.0 - 0.4 % [facility] Lymphocytes Percent Auto 24.9 20 - 40 % [facility] Monocytes Percent Auto 7.5 2 - 11 % [facility] Eosinophils Percent Auto 1.9 0 - 4 % [facility] Basophils Percent Auto 0.3 0 - 2 % [facility] NRBC Pct Auto 0.0 0.0 - 0.2 /100WBC [facility] Neutrophils Absolute Auto 9.1(H) 2.0 - 8.3 x10*3/uL [facility] Imm Gran Abs Auto 0.05(H) 0.00 - 0.03 X10*3/uL [facility] Lymphocytes Absolute Auto 3.5 1.2 - 4.9 X10*3/uL [facility] Monocytes Absolute Auto 1.1 0.1 - 1.2 X10*3/uL [facility] Eosinophils Absolute Auto 0.3 0.0 - 0.4 X10*3/uL [facility] Basophils Absolute Auto 0.0 0.0 - 0.2 X10*3/uL [facility] NRBC Abs Auto 0.000 0.0 - 0.012 X10*3/uL [facility] 07/31/2023 6:08 PM EDT 07/31/2023 6:11 PM EDT us [facility] External Provider LAB BLO OD ORDERABLES Final Result [facility] [address] [place] [phone] * Lipase (07/31/2023 6:08 PM EDT) Lipase 17 8 - 78 U/L [facility] 07/31/2023 6:08 PM EDT 07/31/2023 6:11 PM EDT us Generic External Data Provider LAB BLOOD ORDERAB LES Final Result [facility] [address] [place] [address] [phone] * (ABNORMAL) Comprehensive Metabolic Panel (07/31/2023 6:08 PM EDT) Sodium 138 135 - 145 mmol/L [facility] Potassium 4.8 3.3 - 5.1 mmol/L [facility] Chloride 104 96 - 108 mmol/L [facility] Carbon Dioxide 23 22 - 29 mmol/L [facility] Anion Gap 16 12 - 20 [facility] Urea Nitrogen (BUN) 15 9 - 16 mg/dL [facility] Creatinine, Serum 1.04 0.5 - 1.4 mg/dL [facility] Creatinine Clr Calc Pharmacy 74.1 [facility] Comment:eGFR (calculated fro m the MDRD study equation) and eCrCl(calculated from the Cockcroft-Gault equation) are based ondifferent parameters and may not yield comparable results.If eCrCl result is absurd, please check patient'sheight/weight. Estimated Glomerular Filt Rate >60 [facility] Comment:NOTE: For -Am erican individuals, multiply the result by 1.210.Chronic Kidney Disease: Estimated GFR < 60 mL/min/1.16a2Khwblk Kidney Disease: Estimated GFR < 15 mL/min/1.73m2 Glucose 105 60 - 115 mg/dL [facility] Calcium 9.9 8.4 - 10.2 mg/dL [facility] Bilirubin, Total 0.3 0.0 - 1.0 mg/dL [facility] Aspartate Amino Transferase 11 5 - 37 U/L [facility] Alanine Aminotransferase 12 0 - 40 U/L [facility] Total Protein 8.3(H) 6.5 - 8.0 g/dL [facility] Albumin Level 4.2 3.5 - 5.0 g/dL [facility] Alkaline Phosphatase 73 39 - 117 U/L [facility] 07/31/2023 6:08 PM EDT 07/31/2023 6:11 PM EDT [facility] External Provider LAB BLO OD ORDERABLES Final Result [facility] [address] [place] [address] [phone] * Hm Colonoscopy (02/17/2021) Colonoscopy Normal Normal [facility] Provider HEALTH MAINTENANCE Edited Result - Final documented in this encounter Visit Diagnoses Not on filedocumented in this encounter Care Teams Engraver Flatware Relationship Specialty Start Date End Date Clari Lemons MD [address] [place] [phone] PCP - General Family Medicine 07/14/18 documented as of this encounter
--- OUTSIDE RECORDS SUMMARY | 2025-02-07 07:17 | XMS_ITS | Encounter Summary ---
Author Organization [employer] Address [address] [facility] 7t [place] [address] Care Team Providers Care Devulcanizer Charger Name Role Phone Clari Lemons MD Primary Care Provide r Reason for Visit * Reason Onset Date Comments New Med Request 11/04/2023 Encounter Details Date Type Department Care Team ([facility] st Contact Info) Description 11/04/2023 Telephone [facility] [address] [place] [address] Clari Lemons MD [address] [place], [place] [phone] New Med Request Social History Tobacco Use [...] Description 03/12/2025 10:00 AM EDT Office Visit [facility] [address] [place] [address] Clari Lemons MD [address] [place] [address] documented as of this encounter Visit Diagnoses Not on filedocumented in this encounter Care Teams Devulcanizer Charger Relationship Specialty Start Date End Date Clari Lemons MD [address] [place] [phone] PCP - General Family Medicine 07/14/18 documented as of this encounter
[2025-02-07] MEDS: Lidocaine HCl 1 % MPF 5 ML VIAL 10 ML SUBCUT (08:14)
--- NOTE | 2025-02-07 13:50 | W.PM.OPN ---
Operative Note Operative Note Date of Service: 02/07/25 Narrative: Preoperative diagnosis: Elevated PSA Postoperative diagnosis: Elevated PSA Procedure: 1. transrectal ultrasound measurement of prostate 2. transrectal ultrasound-guided pudendal nerve block 3. transrectal ultrasound-guided prostate biopsy 12 core Surgeon: Dr. Giovani Gaona Anesthetic: 10cc 1% lidocaine Indications for procedure: Elevated PSA 8.7 17% Counselling: Technical aspects, risks and benefits of proposed procedure were discussed in full. All questions have been answered, written consent has been obtained and patient agrees to proceed. Procedure: The patient was brought into the procedure area and placed in a left lateral decubitus position. Patient identity confirmed. Perioperative antibiotics confirmed. Safety pause time out performed. JOJO was performed to dilate rectal sphincter Iodine 10cc with 60 cc gel was placed per rectum to reduce infection risk using a catheter tip syringe. 8 Hz Ronel rectal end-fire ultrasound probe was placed transrectally without difficulty. The prostate was visualized. Seminal vesicles were normal. Prostate margins were clearly demarcated. Bladder was seen superiorly. No cystic structures were noted No calcifications were noted at the surgical margin The prostate was otherwise homogeneous in nature - CLEARLY VISIBLE PERIPHERAL ZONE, ENLARGED TRANSITIONAL ZONE WITH NO EVIDENCE OF whorls OR DISCRETE LESIONS ON ultrasound The prostate was measured in 3 dimensions Prostatic Width: 5 cm Prostatic Height: 5.2 cm Urethral Length: 5.9 cm Total volume equals : 80 ml An ultrasound-guided pudendal nerve block was performed using a 22 gauge spinal needle in the sagittal plane. 4 cc of 1% lidocaine placed at the junction of each seminal vesicle and 2 cc placed at the apex of the prostate. A 12 core biopsy was performed with 6 cores each side using an 18 gauge prostate biopsy gun. Two cores each were taken at the prostate apex, mid and base on each side. Cores were spaced between lateral and medial aspects. Each core was examined as placed on specimen foam as part of automotive quality engineer to ensure a minimum 1 cm of length and minimal discontinuity. He tolerated the procedure well with minimal rectal bleeding. Blood pressure remained stable following procedure. He was able to ambulate to bathroom after 5 minutes. Printed instructions regarding antibiotic use and common adverse events from the procedure such as low-grade temperature, potential infection and bleeding were given. He understands to call the office or go to an emergency room should any of these events arise. Pathology: 12 core prostate biopsy. CPT code 49286: Transrectal ultrasound; this is a diagnostic test for evaluation of the prostate and surrounding structures, looking for abnormalities or suspicious areas worrisome for cancer CPT code 50676: Biopsy, prostate; needle or punch, single or multiple, any approach CPT code 73392: Ultrasonic guidance for needle placement (eg, biopsy, aspiration, injection, localization device), imaging supervision and interpretation
== END 2025-02-07 07:15 | disposition home or self-care (01) ==
LOC: HO.US 07:14
PROVIDERS: PCP Internal Medicine; Visit Provider Urology
DX: R97.20 Elevated prostate specific antigen [PSA] (principal)
CPT/HCPCS: 55700; 76942; 88305; J2003

== ENCOUNTER → 2025-02-07 07:14 | Outpatient (BNV) | payer MEDICAID, SELFPAY | PROVIDERS: PCP Internal Medicine; Visit Provider Urology | DX: R97.20 Elevated prostate specific antigen [PSA] (principal) | CPT/HCPCS: 55700; 76872; 76942 ==

== ENCOUNTER 2025-02-21 11:11 | Outpatient (AMB) | payer MEDICAID, SELFPAY ==
--- NOTE | 2025-02-21 11:12 | A.OFFVIS_ITS ---
Intake Visit Reasons: Prostate biopsy results Intake Note: Patient presents today via telehealth for prostate biopsy results Urology Medications: Tamsulosin Allergies to Antibiotic: No Known Allergies Blood Thinner: None Director Gift Required: Yes Director Gift Name: PHIL [place] and [id number] Accompanied by: Self / Same As Patient Allergies metformin Allergy (Verified 04/02/25 10:36) Rash HPI Comments Details: Magan is a pleasant Sinhala-speaking male. He is a patient of Dr. Zendejas. He is seen for the following urologic conditions - elevated PSA - lower urinary tract symptoms Telemedicine Evaluation 15 min Consultation DoxUIBLUEPRINT Ji Video Discussed biopsy results 80 g gland with negative biopsy Recommend finasteride and six-month follow-up PSA Lower urinary tract symptoms Prior TURP with Dr. Knox Recent imaging showed midline posterior bladder mass 2.9 cm Elevated PSA - 12/17 6.2, 02/14 6.4 PSA free 16%, 05/16 7.6, 01/15 8.6 % free PSA 17% Prostate Biopsy 02/15 80 gm Negative biopsy PFSH Medical History Diabetes BPH (benign prostatic hyperplasia) Hypertension Surgical History History of biopsy Hx of colonoscopy Hx of colonoscopy Family History Father Parkinsons Mother No problems noted. Social History Household Members: Spouse, Family and Children Alcohol intake: never Cigarettes Per Day: 7 Review of Systems Const All systems reviewed & are unremarkable except as noted in HPI and below Reports no additional complaints Resp Reports no additional complaints GI Reports no additional complaints Reports as per HPI Musc Reports no additional complaints Physical Exam Telemedicine evaluation Appropriate responses Regular breathing rate and rhythm HEENT Head: Yes normal to inspection Ears: hearing grossly normal bilaterally Eyes General: appearance normal, both eyes and all related structures Neck Neck: Yes normal visual inspection Chest Chest palpation & inspection: normal inspection of the chest Resp Effort & Inspection: normal respiratory effort and able to speak in complete sentences Telehealth Telehealth Telehealth Platform: StepOne Location of provider rendering services: practice address Location of patient: address on file Patient Identification confirmed using: Name, : Yes Telehealth method: video Patient verbally consented to treatment: Yes Patient verbally consented to billing insurance company: Yes Patient informed of any privacy concerns related to visit: Yes Minutes spent on Phone/Video with Pt.: 15 Assessment & Plan Assessment & Plan (1) Elevated PSA: Code(s): R97.20 - Elevated prostate specific antigen [PSA] Category: Medical (2) Bladder outlet obstruction: Code(s): N32.0 - Bladder-neck obstruction Category: Medical Plan Benign biopsy Continue finasteride Six-month follow-up repeat PSA Orders: Orders PSA,Total (Free>4and<10) 6 Months N32.0 - Bladder-neck obstruction Testosterone, Total 6 Months N32.0 - Bladder-neck obstruction Medications: New finasteride 5 mg PO DAILY 90 tabs 1RF 90 days N32.0 - Bladder-neck obstruction, N40.1 - Benign prostatic hyperplasia with lower urinary tract symptoms, N13.8 - Other obstructive and reflux uropathy, R33.9 - Retention of urine, unspecified Patient Instructions: This note is constructed using voice recognition software. While every effort has been made to ensure accuracy air tube releaser errors may have been included. Imaging studies, laboratory and physical exam results were discussed and reviewed in detail. No major barriers to patient understanding were identified. An opportunity to ask questions regarding the treatment plan was provided. All questions were answered. The patient expressed understanding and agreement with the above treatment plan. The patient is aware they should contact our office by phone for worsening of their current condition or the appearance of new urologic symptoms. Compliance is encouraged with any medications and followup testing that is ordered. It is a privilege to participate in the urologic care of your patient. If you have any questions or concerns regarding treatment for the above conditions, or other urologic issues, please do not hesitate to contact me. The office telephone contact is [phone]. Sincerely, Dr Giovani Gaona MD, [facility] - Urology Compassionate Specialist Care for the Genitourinary System Coding Level of Care Code Tele Est Pt Level 3 (40524) Diagnoses Elevated PSA R97.20 Bladder outlet obstruction N32.0
--- OUTSIDE RECORDS SUMMARY | 2025-02-21 13:02 | XMS_ITS | Encounter Summary ---
Author Organization [employer] [facility] Address [address] [place] [address] [address] [place] [address] Care Team Providers Care Note Teller Name Role Phone Clari Lemons MD Primary Care Provide r Reason for Visit * Reason Comments Med Refill Encounter Details Date Type Department Care Team (Late Contact Info) Description 06/03/2023 Refill [facility] [address] [place], [place] [phone] Clari Lemons MD [address] [place] [address] [phone] Social History Tobacco Use Types Packs/Day Years [...] Description 03/12/2025 10:00 AM EDT Office Visit [facility] [address] [place] [address] [phone] Clari Lemons MD [address] [place] [address] [phone] documented as of this encounter Visit Diagnoses Not on filedocumented in this encounter Care Teams Note Teller Relationship Specialty Start Date End Date Clari Lemons MD [address] [place] [phone] PCP - General Family Medicine 07/14/18 documented as of this encounter
--- OUTSIDE RECORDS SUMMARY | 2025-02-21 13:02 | XMS_ITS | Encounter Summary ---
Author Organization [employer] [facility] Address [address] [place] [address] 7 [place] [address] Care Team Providers Care Physical Therapy Aid Name Role Phone Clari Lemons MD Primary Care Provide r Encounter Details Date Type Department Care Team ([facility] st Contact Info) Description 06/30/2023 Orders Only [facility] [address] [place] [phone] Provider, MD Mihir Social History Tobacco Use [...] Description 03/12/2025 10:00 AM EDT Office Visit [facility] [address] [place] [address] [phone] Clari Lemons MD [address] [place], [place] [phone] documented as of this encounter Procedures Procedure [...] (07/31/2023 11:48 PM EDT) Color Urine Yellow [facility] Appearance Urine Clear [facility] PH 5.5 5.0 - 9.0 [facility] Glucose Urine UA >=1000(A) Negative mg/dL [facility] Urine Blood Trace(A) Negative [facility] Specific [place] - Urine 1.020 1.005 - 1.025 [facility] Urine Protein Negative Neg-Trace mg/dL [facility] Urine Ketones Negative Negative mg/dL [facility] Nitrite Urine Negative Negative [facility] Leukocyte Esterase Urine Negative Negative [facility] RBC Urine 0-2 0 - 2 /HPF [facility] Urine WBC 0-5 0 - 5 /HPF [facility] Urine Squamous Epithelial Cell 0-2 0 - 2 /HPF [facility] Urine Bacteria None Seen None Seen [facility] Hyaline Casts, Urine 0-2 0 - 2 /LPF [facility] 07/31/2023 11:4 8 PM EDT 07/31/2023 11:52 PM EDT Narrative [facility] - 08/01/2023 12:02 AM EDT Urine, Clean Catch us [facility] External Provider LAB URI NE ORDERABLES Final Result Performing Organization Address [facility]/ZIP Co de Phone Number [facility] [address] [place] [address] [phone] * High Sensitivity Troponin I (07/31/2023 6:08 PM EDT) [facility] TROPONIN I HIGH SENSITIVITY <2.7 <3.5 - 35.0 ng/L [facility] Comment:The [facility] high sens itivity Troponin-I results should beused in conjunction with other diagnostic information suchas ECG, clinical observations and information, and patientsymptoms to aid in the diagnosis of SD. 07/31/2023 6:08 PM EDT 07/31/2023 6:11 PM EDT [facility] External Provider LAB BLO OD ORDERABLES Final Result Performing Organization Address [facility] Co de Phone Number [facility] [address] [place] [address] [phone] * (ABNORMAL) CBC auto differential (07/31/2023 6:08 PM EDT) [facility] White Blood Count 13.9(H) 4.8 - 10.8 X10*3/uL [facility] Red Blood Count 5.06 4.60 - 5.80 X10*6/uL [facility] Hemoglobin 15.5 14.0 - 18.0 g/dl [facility] Hematocrit 46.0 42.0 - 52.0 % [facility] Mean Corpuscular Volume 90.9 80.0 - 98.0 fL [facility] Mean Corpuscular Hemoglobin 30.6 27.0 - 33.0 pg [facility] Mean Corpuscular HGB Conc 33.7 31.0 - 36.0 g/dl [facility] Red Cell Distribution Width 14.0 11.0 - 16.0 % [facility] Platelet Count 206 160 - 400 X10*3/uL [facility] Mean Platelet Volume 11.3 9.4 - 12.4 fL [facility] Neutrophils Percent Auto 65.0 45 - 73 % [facility] Imm Gran Pct Auto 0.4 0.0 - 0.4 % [facility] Lymphocytes Percent Auto 24.9 20 - 40 % [facility] Monocytes Percent Auto 7.5 2 - 11 % [facility] Eosinophils Percent Auto 1.9 0 - 4 % [facility] Basophils Percent Auto 0.3 0 - 2 % [facility] NRBC Pct Auto 0.0 0.0 - 0.2 /100WBC [facility] Neutrophils Absolute Auto 9.1(H) 2.0 - 8.3 x10*3/uL [facility] Imm Gran Abs Auto 0.05(H) 0.00 - 0.03 X10*3/uL [facility] Lymphocytes Absolute Auto 3.5 1.2 - 4.9 X10*3/uL [facility] Monocytes Absolute Auto 1.1 0.1 - 1.2 X10*3/uL [facility] Eosinophils Absolute Auto 0.3 0.0 - 0.4 X10*3/uL [facility] Basophils Absolute Auto 0.0 0.0 - 0.2 X10*3/uL [facility] NRBC Abs Auto 0.000 0.0 - 0.012 X10*3/uL [facility] 07/31/2023 6:08 PM EDT 07/31/2023 6:11 PM EDT us [facility] External Provider LAB BLO OD ORDERABLES Final Result [facility] [address] [place] [address] [phone] * Lipase (07/31/2023 6:08 PM EDT) Lipase 17 8 - 78 U/L [facility] 07/31/2023 6:08 PM EDT 07/31/2023 6:11 PM EDT us Generic External Data Provider LAB BLOOD ORDERAB LES Final Result [facility] [address] [place] [address] [phone] * (ABNORMAL) Comprehensive Metabolic Panel (07/31/2023 6:08 PM EDT) Sodium 138 135 - 145 mmol/L [facility] Potassium 4.8 3.3 - 5.1 mmol/L [facility] Chloride 104 96 - 108 mmol/L [facility] Carbon Dioxide 23 22 - 29 mmol/L [facility] Anion Gap 16 12 - 20 [facility] Urea Nitrogen (BUN) 15 9 - 16 mg/dL [facility] Creatinine, Serum 1.04 0.5 - 1.4 mg/dL [facility] Creatinine Clr Calc Pharmacy 74.1 [facility] Comment:eGFR (calculated fro m the MDRD study equation) and eCrCl(calculated from the Cockcroft-Gault equation) are based ondifferent parameters and may not yield comparable results.If eCrCl result is absurd, please check patient'sheight/weight. Estimated Glomerular Filt Rate >60 [facility] Comment:NOTE: For -Am erican individuals, multiply the result by 1.210.Chronic Kidney Disease: Estimated GFR < 60 mL/min/1.46b2Vxlqrd Kidney Disease: Estimated GFR < 15 mL/min/1.73m2 Glucose 105 60 - 115 mg/dL [facility] Calcium 9.9 8.4 - 10.2 mg/dL [facility] Bilirubin, Total 0.3 0.0 - 1.0 mg/dL [facility] Aspartate Amino Transferase 11 5 - 37 U/L [facility] Alanine Aminotransferase 12 0 - 40 U/L [facility] Total Protein 8.3(H) 6.5 - 8.0 g/dL [facility] Albumin Level 4.2 3.5 - 5.0 g/dL [facility] Alkaline Phosphatase 73 39 - 117 U/L [facility] 07/31/2023 6:08 PM EDT 07/31/2023 6:11 PM EDT [facility] External Provider LAB BLO OD ORDERABLES Final Result [facility] [address] [place] [address] [phone] * Hm Colonoscopy (02/17/2021) Colonoscopy Normal Normal [facility] Provider HE[employer]INTENANCE Edited Result - Final documented in this encounter Visit Diagnoses Not on filedocumented in this encounter Care Teams Physical Therapy Aid Relationship Specialty Start Date End Date Clari Lemons MD [address] [place] [phone] PCP - General Family Medicine 07/14/18 documented as of this encounter
--- OUTSIDE RECORDS SUMMARY | 2025-02-21 13:02 | XMS_ITS | Clinical Summary ---
Author Organization [email or web address] Address [address] [place] [address] 7 [place] [address] Care Team Providers Care Machine Tech Name Role Phone Clari Lemons MD Primary Care Provide r Allergies Active Allergy Reactions Criticality Noted Date Comments Metformin 10/08/2020 Other reaction(s): Hives / Skin Rash Medications Acetaminophen 500 MG capsule take 2 capsule by oral route every 8 hours as needed 07/22/20 22 Active hydrOXYzine HCl (Atarax) 25 MG tablet take 1 tablet by oral route 2 times every day as needed 02/28/20 20 Active Melatonin 10 MG capsule take one at bed time 02/27/20 21 Active triamcinolone (Kenalog) 0.1 % cream apply by topical route 2 times every day a thin layer to the affected area(s) 11/27/19 20 Active clotrimazole (Lotrimin) 1 % creamIndication s:Tinea pedis, unspecified laterality Apply to the affected area(s) and surrounding area(s) of skin twice daily in the morning and in the evening 30 g 10/06/20 22 Active clotrimazole-be tamethasone (Lotrisone) cream APPLY TOPICALLY TWICE DAILY FOR 28 DAYS 45 g 08/16/20 23 Active omeprazole (PriLOSEC) [address] capsuleIndicati ons:Gastroesoph ageal reflux disease, unspecified whether esophagitis present Take 1 capsule (20 mg) by mouth before breakfast. Do not crush or chew. 30 capsule 11 11/04/19 24 Active Blood Pressure Monitoring (Omron 3 Series BP Monitor) device USE TO CHECK BLOOD PRESSURE EVERY DAY 1 each 01/19/20 24 Active Blood Glucose Monitoring Suppl (FreeStyle [place] Lite) w/Device kitIndications: Type 2 diabetes mellitus with hyperglycemia, without long-term current use of insulin ([facility]) Use to test blood sugar 2 times daily 1 kit 09/04/20 24 Active glucose blood (FREESTYLE LITE) test stripIndication s:Type 2 diabetes mellitus with hyperglycemia, without long-term current use of insulin ([facility]) USE DIRECTED TO TEST BLOOD SUGAR EVERY DAY 100 strip 3 09/11/20 24 Active D3 Super Strength 50 MCG (1999 UT) capsule TAKE 1 CAPSULE BY MOUTH EVERY DAY 90 capsule 1 09/12/20 24 Active Easy Touch Lancets 33G/Twist misc Inject 1 each under the skin Once per day. TEST BLOOD SUGAR EVERY DAY 100 each 5 11/06/19 25 Active tamsulosin (Flomax) 0.4 MG 24 hr capsuleIndicati ons:Benign prostatic hyperplasia with urinary frequency TAKE 1 CAPSULE BY MOUTH AT BEDTIME 90 capsule 11/27/19 25 Active empagliflozin (Jardiance) 10 MGIndications:T ype 2 diabetes mellitus with hyperglycemia, without long-term current use of insulin ([facility]) Take 1 tablet (10 mg) by mouth Once per day. 90 tablet 12/18/19 25 026 Active olmesartan (BENIcar) 20 MG tabletIndicatio ns:Primary hypertension Take 1 tablet (20 mg) by mouth Once per day. 30 tablet 11 12/18/19 25 026 Active glipiZIDE XL (Glucotrol XL) 10 MG 24 hr tabletIndicatio ns:Type 2 diabetes mellitus with hyperglycemia, without long-term current use of insulin ([facility]) TAKE 1 TABLET BY MOUTH TWICE DAILY WITH FOOD 180 tablet 1 01/29/20 25 Active atorvastatin (Lipitor) 20 MG tabletIndicatio ns:Type 2 diabetes mellitus with hyperglycemia, without long-term current use of insulin ([facility]) TAKE 1 TABLET BY MOUTH EVERY DAY 90 tablet 1 01/29/20 25 Active amLODIPine (Norvasc) 10 MG tabletIndicatio ns:Hypertension , unspecified type TAKE 1 TABLET BY MOUTH EVERY MORNING 90 tablet 1 01/29/20 25 Active glipiZIDE XL (Glucotrol XL) 10 MG 24 hr tabletIndicatio ns:Type 2 diabetes mellitus with hyperglycemia, without long-term current use of insulin (CMS/HCC) TAKE 1 TABLET BY MOUTH TWICE DAILY WITH MEALS 180 tablet 1 05/01/20 24 025 Discontinued amLODIPine (Norvasc) 10 MG tabletIndicatio ns:Hypertension , unspecified type TAKE 1 TABLET BY MOUTH EVERY MORNING 90 tablet 1 06/20/20 24 025 Discontinued atorvastatin (Lipitor) 20 MG tabletIndicatio ns:Type 2 diabetes mellitus with hyperglycemia, without long-term current use of insulin (CMS/HCC) TAKE 1 TABLET BY MOUTH EVERY DAY 90 tablet 1 06/20/20 24 025 Discontinued Active Problems Problem Noted Date Diagnosed Date [...] Encounters Date Type Department Care Team Description 02/07/2025 Orders Only GENERIC EXTERNAL DATA DEPARTMENT Provider, Generic External Data 01/29/2025 2:00 PM EDT Clinical Support [address] [address] Fabiola Nascimento RN Primary hypertension 01/29/[address] [address] Fabiola Nascimento RN Blood Pressure Check 01/29/2025 Travel 01/27/[address] [facility] [place] [address] Clari Lemons MD Type 2 diabetes mellitus with hyperglycemia, without long-term current use of insulin (CMS/HCC); Hypertension, unspecified type 01/15/2025 1:00 PM EDT Clinical Support [facility] [place] [address] Fabiola Nascimento RN Primary hypertension 01/15/2025 Travel 01/04/2025 Population Health Risk Score Community [facility] (C3) Department [address] [place] [phone] Provider, Population Health Generic 01/01/2025 1:30 PM EDT Clinical Support [facility] [place] [address] Fabiola Nascimento RN Primary hypertension 01/01/2025 Travel 12/18/2024 9:15 AM EST Office Visit [facility] [place] [address] Clari Lemons MD Colon cancer screening (Primary Dx); Type 2 diabetes mellitus with hyperglycemia, without long-term current use of insulin (CMS/HCC); Primary hypertension 12/18/2024 Travel 12/13/[address] [facility] MEDICINE [address] [place] [address] Clari Lemons MD Chart Prep 12/04/2024 Patient Outreach [facility] [address] [place] [address] Clari Lemons MD Pre-visit Planning (SDOH screening negative and tobacco screening positive) 11/26/[address] [facility] [address] [place] [address] Clari Lemons MD Benign prostatic hyperplasia with urinary frequency from Last 3 Months Immunizations Name Administration [...] Sign Reading Time Taken Comments Blood Pressure 148/88 01/29/2025 2:40 PM EDT Pulse 88 01/29/2025 2:40 PM EDT Temperature 36.5 ??C (97.7 ??F) [...] Description 03/12/2025 10:00 AM EDT Office Visit [facility] MEDICINE [address] [place] [address] Clari Lemons MD [address] [place] [address] Health Maintenance Due Date Last Done Comments CT Colonography 1960 FIT DNA/Cologuard 1960 FIT 1960 FOBT 1960 HIV Screening 1960 Sigmoidoscopy 1960 Hepatitis C Screening 1980 Pneumococcal Vaccine: 50+ Years (1 of 2 - PCV) 1981 Zoster Vaccines (1 of 2) 2012 DTaP/Tdap/Td Vaccines (1 - Tdap) 07/23/2022 07/22/2022 Colonoscopy 02/18/2024 02/17/2021 Colorectal Cancer Screening 02/18/2024 Diabetes: Foot Exam 04/05/2024 04/05/2023, COVID-19 Vaccine ( - season) 2024 03/06/2021, 02/06/2021 Influenza Vaccine (#1) 2024 , 07/22/2022, 08/05/2021, Additional history exists Diabetes: Hemoglobin A1C 03/17/2025 025, 09/04/2024, 05/01/2024, Additional history exists Depression Screening 05/01/2025 05/01/2024, 05/01/20 24 Lipid Panel 05/07/2025 05/07/2024, 03/24, 11/24/2021, Additional [...] Procedure Name Priority Date/Time Associated Diagnosis Comments PROSTATE BIOPSY 1-20 Routine 02/07/2025 8:17 AM EDT CYTOPATH-CELL ENHANCED Routine 01/21/2025 4:55 PM EDT COMPREHENSIVE METABOLIC PANEL Routine 01/17/2025 8:40 AM EDT Type 2 diabetes mellitus with hyperglycemia, without long-term current use of insulin ([facility]/HCC) ALBUMIN, RANDOM URINE W/CREATININE Routine 01/17/2025 8:40 [...] without long-term current use of insulin (CMS/HCC) Primary hypertension HM COLONOSCOPY Routine 02/17/2021 from Last 3 Months or Most Recently Relevant to Health Maintenance Results * Prostate biopsy 1-20 (02/07/2025 8:17 AM EDT) 02/07/2025 8:17 AM EDT 02/07/2025 8:30 AM EDT [facility] - 02/11/2025 10:17 AM EDT ----- ------- Name: Magan Mccoy ?Age/Sex: 64/M ? : 1960 Unit#: [id number] ?? Attend Dr: Giovani Gaona MD ?Re02/07/25 ?Status: DEP REF ? Location: HO.US ? Disch: ? ----- ------- SPEC : [id number] ? RECD: 02/07/25 ? STATUS: ??SOUT ? REQ NUM: [id number] ? JOVON: 02/07/25 ? SUBM DR: Giovani Gaona MD ? ENTERED: ??02/07/25 ?SP TYPE: Surgical ? OTHR DR: Clari Lemons MD ? ORDERED: ??Prostate biopsy/ ? Diagnosis ?? A: ??Left base lateral: ??Benign prostatic tissue; no malignancy identified. ? B: ??Left base medial: ??Benign prostatic tissue; no malignancy identified. ? C: ??Left mid lateral: ??Benign prostatic tissue; no malignancy identified. ? D: ??Left mid medial: ??Benign prostatic tissue; no malignancy identified. ? E: ??Left apex lateral: ??Benign prostatic tissue; no malignancy identified. ? F: ??Left apex medial: ??Benign prostatic tissue; no malignancy identified. ? G: ??Right base lateral: ??Benign prostatic tissue; no malignancy identified. ? H: ??Right base medial: ??Benign prostatic tissue; no malignancy identified. ? I: ??Right mid lateral: ??Benign prostatic tissue; no malignancy identified. ? J: ??Right mid medial: ??Benign prostatic tissue; no malignancy identified. ? K: ??Right apex lateral: ??Benign prostatic tissue; no malignancy identified. ? L: ??Right apex medial: ??Benign prostatic tissue; no malignancy identified. ?Clinical History Elevated PSA ?Microscopic Description A-L. ??Microscopic sections reviewed. ? Material Received ?? A. Left base lateral ?? B. Left base medial ?? C. Left mid lateral ?? D. Left mid medial ?? E. Left apex lateral ?? F. Left apex medial ?? G. Right base lateral ?? H. Right base medial ? CONTINUED ON NEXT PAGE ----- ------- Name: Magan Mccoy ?Age/Sex: 64/M ? : 1960 Unit#: [id number] ?? Attend Dr: Giovani Gaona MD ?Re02/07/25 ?Status: DEP REF ? Location: HO.US ? Disch: ? ----- ------- SPEC : [id number] ? RECD: 02/07/25 ? STATUS: ??SOUT ? REQ NUM: [id number] ? JOVON: 02/07/25 ? SUBM DR: Giovani Gaona MD ? ENTERED: ??02/07/25 ?SP TYPE: Surgical ? OTHR DR: Clari Lemons MD ? ORDERED: ??Prostate biopsy/12 ? Material Received ?(Continued) ?? I. Right mid lateral ?? J. Right mid medial ?? K. Right apex lateral ?? L. Right apex medial ? Gross Description Received in twelve parts. Part A: ??Received in formalin labeled left base lateral? are 2 irregular shards and thin and delicate cylindrical threads of thomas-white tissue measuring 0.2 and 1.3 cm, submitted in toto in a cassette labeled A. Part B: ??Received in formalin labeled ?left base medial? is a 2.0 cm in length thin and delicate thomas-white cylindrical thread of tissue, submitted in toto in a cassette labeled B. Part C: ??Received in formalin labeled ?left mid lateral? are 2 irregular shards and thin and delicate cylindrical threads of thomas-white tissue measuring 0.1 and 1.2 cm, submitted in toto in a cassette labeled C. Part D: ??Received in formalin labeled ?left mid medial? is a 1.5 cm in length thin and delicate thomas-white cylindrical thread of tissue, submitted in toto in a cassette labeled D. Part E: ??Received in formalin labeled ?left apex lateral? are 2 irregular shards and thin and delicate cylindrical threads of thomas-white tissue measuring 0.15 and 1.0 cm, submitted in toto in a cassette labeled E. Part F: ??Received in formalin labeled ?left apex medial? are 2 thin and delicate cylindrical threads of thomas-white tissue measuring 0.4 and 1.4 cm in length, submitted in toto in a cassette labeled F. Part G: ??Received in formalin labeled ?right base lateral? is a 1.2 cm in length thin and delicate thomas-white cylindrical thread of tissue, submitted in toto in a cassette labeled G. Part H: ??Received in formalin labeled ?right base medial? is a 1.8 cm in length thin and delicate thomas-llanos cylindrical thread of tissue, submitted in toto in a cassette labeled H. Part I: ?? Received in formalin labeled ?right mid lateral? is a 1.4 cm in length thin and delicate thomas-llanos cylindrical thread of tissue, submitted in toto in a cassette labeled I. Part J: ??Received in formalin labeled ?right mid medial? is a 1.7 cm in length thin and ? CONTINUED ON NEXT PAGE ----- ------- Name: Magan Mccoy ?Age/Sex: 64/M ? : 1960 Unit#: [id number] ?? Attend Dr: Giovani Gaona MD ?Re02/07/25 ?Status: DEP REF ? Location: [facility] ? Disch: ? ----- ------- SPEC : [id number] ? RECD: 02/07/25 ? STATUS: ??SOUT ? REQ NUM: [id number] ? JOVON: 02/07/25 ? SUBM DR: Giovani Gaona MD ? ENTERED: ??02/07/25 ?SP TYPE: Surgical ? OTHR DR: Clari Lemons MD ? ORDERED: ??Prostate biopsy/12 ? Gross Description ?(Continued) delicate thomas-white cylindrical thread of tissue, submitted in toto in a cassette labeled J. Part K: ??Received in formalin labeled ?right apex lateral? are 2 thin and delicate thomas-llanos cylindrical threads of tissue measuring 0.4 and 0.9 cm, submitted in toto in a cassette labeled K. Part L: ??Received in formalin labeled ?right apex medial? is a 1.6 cm in length thin and delicate thomas-llanos cylindrical thread of tissue, submitted in toto in a cassette labeled L. CEDS This case was reviewed intradepartmentally. Copies To: ?? Clari Lemons MD ?? [facility] ?? [address] ?? [place] [address] ?? [phone] ?? Giovani Gaona MD ?? [facility] ?? [address] ?? [place] [address] ?? [phone] ----- ------- Signed (signature on file) Dev Good MD 02/11/25 1017 ? ----- ------- ? END OF REPORT ? us Generic External Data Provider LAB PATHOLOGY ORD ERABLES Final Result [facility] [address] [place] [phone] * Cytopath-cell enhanced (01/21/2025 4:55 PM EDT) 01/21/2025 4:55 PM EDT 01/22/2025 6:00 AM EDT Kemi [facility] - 01/22/2025 3:43 PM EDT ----- ------- Name: Magan Mccoy ?Age/Sex: 64/M ? : 1960 Unit#: [id number] ?? Attend Dr: Cecilia Jenkins [facility]IOLOG[facility] ?Re01/21/25 ?Status: DEP REF ? Location: HO.LNP ?Disch: ? ----- ------- SPEC : [id number] ? RECD: 01/22/25 ? STATUS: ??SOUT ? REQ NUM: [id number] ? JOVON: 01/21/25 ? SUBM DR: Cecilia Jenkins [facility] ? ENTERED: ??01/22/25 ?SP TYPE: Cytology ? OTHR DR: Clari Lemons MD ? ORDERED: ??Cyto-enhanced ? Diagnosis ?? Urine, cytology: ??Negative for high-grade urothelial carcinoma. ? COMMENT: ??Review of the cytology preparation demonstrates a cellular specimen composed of ?? squames and urothelial cells. Mixed inflammatory cells are noted. There is no significant ?? atypia seen. ?Clinical History Unspecified symptoms and signs involving the genitourinary system Encounter for screening, unspecified ? Material Received ?? Urine ? Gross Description Received is 40 cc of clear yellow fluid from which a ThinPrep slide is prepared. Copies To: ?? Clari Lemons MD ?? [facility] ?? [address] ?? [place] [address] ?? [phone] ?? Cecilia Jenkins [facility]- ?? [facility] U[facility] ?? [address] [place] [address] [address] ?? [place] [address] ?? [phone] ?? [email or web address] ----- ------- Signed (signature on file) Mari Galindo MD 01/22/25 1543 ? ----- ------- ? END OF REPORT ? us Generic External Data Provider LAB CYTOLOGY KAYLEIGH PEDERSEN Final Result Performing Organization Address [facility] Co de Phone Number [facility] [address] [place] [address] [phone] * (ABNORMAL) Albumin, Random Urine W/Creatinine (01/17/2025 8:40 AM EDT) Creatinine, Urine 109.08 mg/dL [facility] Microalbumin Urine 40.0 mg/L [facility] Microalbum Creatinine Ratio Ur 36.6(H) <30 ug/mg cr [facility] Comment:Albumin/Creatinine R atio Reference Ranges: Normal: < 30 ug/mg creatinine Microalbuminuria: 30 - 300 ug/mg creatinineClinical Albuminuria: > 300 ug/mg creatinine Urine (Urine, Random) 01/17/2025 8:40 AM EDT 01/17/2025 11:03 AM EDT Clari Zendejas MD LAB URINE ORDERABLES Final Result Performing Organization Address [facility] Co de Phone Number [facility] [address] [place] [address] [phone] * (ABNORMAL) Comprehensive Metabolic Panel (01/17/2025 8:40 AM EDT) Sodium 138 135 - 145 mmol/L [facility] Potassium 5.0 3.3 - 5.1 mmol/L [facility] Chloride 105 96 - 108 mmol/L [facility] Carbon Dioxide 27 22 - 29 mmol/L [facility] Anion Gap 11(L) 12 - 20 [facility] Urea Nitrogen (BUN) 12 9 - 16 mg/dL [facility] Creatinine, Serum 0.79 0.5 - 1.4 mg/dL [facility] Estimated Glomerular Filt Rate >60 [facility] Comment:Chronic Kidney Disea se: Estimated GFR < 60 mL/min/1.32w6Ekrqew Kidney Disease: Estimated GFR < 15 mL/min/1.73m2 Glucose 149(H) 60 - 115 mg/dL [facility] Calcium 9.4 8.4 - 10.2 mg/dL [facility] Bilirubin, Total 0.4 0.0 - 1.0 mg/dL [facility] Aspartate Amino Transferase 18 5 - 37 U/L [facility] Alanine Aminotransferase 18 0 - 40 U/L [facility] Total Protein 7.8 6.5 - 8.0 g/dL [facility] Albumin Level 4.1 3.5 - 5.0 g/dL [facility] Alkaline Phosphatase 77 39 - 117 U/L [facility] Blood Venous blood specimen / Unknown 01/17/2025 8:40 AM EDT 01/17/2025 11:06 AM EDT us Clari Zendejas MD LAB BLOOD ORDERABLES Final Result [facility] [address] [place] [phone] * (ABNORMAL) POCT HGB A1C (12/18/2024 9:26 AM EST) Hemoglobin A1C 9.2(A) 4.0 - 6.0 % QC Media Lot # [id number] Lot# Expiration Date Blood 12/18/2024 9:26 AM EST Clari Zendejas MD POINT OF CARE TEST EN TER/EDIT ORDERABLES Final Result * (ABNORMAL) POCT Glucose (12/18/2024 9:26 AM EST) Glucose Blood, POC 322(A) 60 - 200 mg/dL QC Media Lot # [id number] Lot# Expiration Date Blood Capillary blood specimen / Unknown 12/18/2024 9:26 AM EST us Clari Zendejas MD POINT OF CARE TEST EN TER/EDIT ORDERABLES Final Result * (ABNORMAL) Lipid Panel with Reflex to Direct LDL (05/07/2024 9:49 AM EDT) Triglycerides 200(H) <150 mg/dL [facility] Comment:Desirable Triglyceri de: less than 150 mg/dLBorderline High Triglyceride 150-199 mg/dLHigh Triglyceride: 200-499 mg/dLVery High Triglyceride: greater than or equal to 5OO mg/dL Cholesterol 178 <200 mg/dL [facility] Comment:Desirable Cholestero l: less than 200 mg/dLBorderline High Cholesterol: 200-239 mg/dLHigh Cholesterol: greater than 239 mg/dL LDL Cholesterol Calculated 112(H) <100 mg/dL [facility] Comment:Desirable LDL: less than 100 mg/dLNear Optimal/Above Optimal LDL: 110- 129 mg/dLBorderline High LDL: 130-159 mg/dLHigh LDL: 160-189 mg/dLVery High LDL: greater than or equal to 190 mg/dL HDL Cholesterol 26(L) >40 mg/dL [facility] Comment:Desirable HDL: great er than 40 mg/dL Note: This HDL assay may give artificially low results in patients with liver disease. Blood 05/07/2024 9:49 AM EDT 05/07/2024 11:04 AM EDT Clari Zendejas MD LAB BLOOD ORDERABLES Final Result [facility] [address] [place] [address] [phone] * Colonoscopy (02/17/2021) Colonoscopy Normal Normal Historical Provider HEALTH MAINTENANCE Edited Result - Final from Last 3 Months or Most Recently Relevant to Health Maintenance Insurance [facility] C3 HSN FULL * Guarantor: Fan Maagn Melendez Account Type Relation to Patient Date of Phone Billing Address Personal/Family Self [address] [facility] [place] Care Teams Machine Tech Relationship Specialty Start Date End Date Clari Lemons MD [address] [place] [phone] PCP - General Family Medicine 07/14/18
--- OUTSIDE RECORDS SUMMARY | 2025-02-21 13:02 | XMS_ITS | Encounter Summary ---
Author Organization [email or web address] Address [address] [facility] [address] [place] [address] Care Team Providers Care Featheredge Machine Operator Name Role Phone Clari Lemons MD Primary Care Provide r Reason for Visit * Reason Onset Date Comments New Med Request 11/04/2023 Encounter Details Date Type Department Care Team ([facility] st Contact Info) Description 11/04/2023 Telephone [facility] [address] [place] [address] Clari Lemons MD [address] [place], [place] [phone] New Med Request Social History Tobacco Use [...] Description 03/12/2025 10:00 AM EDT Office Visit [facility] [address] [place] [address] Clari Lemons MD [address] [place] [address] documented as of this encounter Visit Diagnoses Not on filedocumented in this encounter Care Teams Featheredge Machine Operator Relationship Specialty Start Date End Date Clari Lemons MD [address] [place] [address] PCP - General Family Medicine 07/14/18 documented as of this encounter
== END 2025-02-21 12:23 | disposition home or self-care (01) ==
LOC: HO.HUSH 11:11
PROVIDERS: PCP Internal Medicine; Visit Provider Urology
DX: R97.20 Elevated prostate specific antigen [PSA] (principal); N32.0 Bladder-neck obstruction
CPT/HCPCS: 99213

== ENCOUNTER 2025-04-02 10:17 | Outpatient (AMB) | payer MEDICAID, SELFPAY ==
--- NOTE | 2025-04-02 10:24 | MHC.OFFVIS ---
Vital Signs 04/02/25 10:27 Height 5 ft 6 in Weight 173 lb BMI 27.9 BP 146/84 H Blood Pressure Location Lt brachial Position Sitting Pulse 76 Pulse Source Pulse Oximeter Pulse Oximetry (%) 98 Oxygen Delivery Method Room Air Intake Visit Reasons: colo screening Intake Note: Established patient for recall colo screening. Last w/ Dr. Bailey 2020. Hx of TA polypectomy. CC; Allergies metformin Allergy (Verified 04/02/25 10:36) Rash HPI HPI colo screening: Details: Assessment & Plan (1) Colon cancer screening: Code(s): Z12.11 - Encounter for screening for malignant neoplasm of colon Category: Medical Plan - January FELECIA CisnerosC: Indonesian #[id number], Lakisha He denies any bowel problems or upper GI problems. There are no prior problems with anesthesia or sedation. He denies any cardiac or respiratory problems. There is no known FHX of crc or polyps. Approx ht 5'6 wt 180# per pt report Orders: Orders: Comprehensive Met. Panel Today Complete Blood Count Auto Diff Today (2) Tubular adenoma of colon: Code(s): D12.6 - Benign neoplasm of colon, unspecified Category: Medical Orders: Orders: Comprehensive Met. Panel Today Complete Blood Count Auto Diff Today LABS: Laboratory Tests 08/07/18 03/12/19 10/30/19 10:01 07:50 10:07 WBC 10.5 Hgb 14.1 Hct 40.7 L MCV 87.7 D Plt Count 208 Est GFR (Non-Af Amer) > 60 Estimated GFR Hemoglobin A1c 7.0 Total Bilirubin 0.4 Direct Bilirubin 0.2 AST 14 ALT 17 Alkaline Phosphatase 90 D 01/17/25 08:40 WBC Hgb Hct MCV Plt Count Est GFR (Non-Af Amer) Estimated GFR > 60 Hemoglobin A1c Total Bilirubin 0.4 Direct Bilirubin AST 18 ALT 18 Alkaline Phosphatase 77 COLONOSCOPY -2020 Findings: Terminal Ileum: Not evaluated Cecum: Diverticulosis Ascending Colon: Moderate diverticulosis Transverse Colon: A 10-12 mm sessile polyp removed with a hot snare Descending Colon: Moderate diverticulosis Sigmoid Colon: Moderate diverticulosis Rectum: Normal Ano-rectum: Moderate internal hemorrhoids Colon preparation: Good after copious irrigation Impression and Post Procedure Diagnosis: Colonoscopy Findings: One medium sized polyp removed Moderate diverticulosis seen in the entire colon Moderate hemorrhoids on retroflexed exam. Plan: Await pathology results Patient has an appointment on 02/24/21 in the [facility] with Karolina Cisneros NP . Repeat Colonoscopy interval based on path results - in 3-5 years if polyps are adenomatous and due to history of colon polyps. * BIOPSY Colon, transverse, polypectomy: Tubular adenoma; no high grade dysplasia or carcinoma seen. TODAY'S VISIT Indonesian #[id number] HIs only new health problems is with his prostate and bladder. He denies any bowel problems or upper GI problems. There are no prior problems with anesthesia or sedation. He denies any cardiac or respiratory problems. There is no known FHX of crc or polyps; but his mother 1.5 years ago of cancer of unknown origin. [facility] Medical History Diabetes BPH (benign prostatic hyperplasia) Hypertension Surgical History Hx of colonoscopy Hx of colonoscopy Family History Father Parkinsons Mother No problems noted. Social History Household Members: Spouse, Family and Children Alcohol intake: never Cigarettes Per Day: 7 Review of Systems Const Denies fatigue, Denies fever(s), Denies night sweats, Denies poor appetite and Denies weight loss Eyes Details: glasses Reports requires corrective lenses ENT Reports Normal hearing present, Denies dental pain, Denies dysphagia, Denies hearing loss, Denies mouth pain, Denies odynophagia, Denies throat swelling, Denies tongue swelling and Reports other (Dentition adequate) GI Details: Denies abdominal pain, Denies melena, Denies bloating, Denies hematochezia, Denies constipation, Denies GI cramping, Denies dysphagia, Denies excessive flatus, Denies early satiety, Denies heartburn, Denies diarrhea, Denies nausea, Denies odynophagia, Denies vomiting and Denies hematemesis Skin/Breast Denies pruritus, Denies lesions, Denies rash and Denies jaundice Neuro Reports Normal hearing present and Denies Abnormal speech present Endo Denies fatigue Aller/Immun Denies throat swelling and Denies tongue swelling Physical Exam Const General: cooperative, no acute distress, well developed and well groomed Nutritional Appearance: well nourished and obese centrally obese Orientation/consciousness: oriented to person, oriented to place and oriented to time Limitations: language barrier HEENT Head: Yes normocephalic and Yes atraumatic Eyes General: appearance normal, both eyes and all related structures Pupils: Equal, round and reactive pupils present Neck Neck: Yes normal visual inspection and Yes no lymphadenopathy Thyroid: Thyroid normal Resp Effort & Inspection: normal respiratory effort and able to speak in complete sentences Auscultation: clear to auscultation bilaterally Cardio Rate: regular rate Rhythm: regular rhythm Heart sounds: Normal, physiologic split S2 sound present Peripheral pulses: radial pulses present and posterior tibial pulses present GI Inspection: No distended, No Abdominal panniculus present and Yes obesity Palpation (GI): Soft to palpation, nontender, no guarding, not rigid and No hepatosplenomegaly present Percussion: Yes normal to percussion Auscultation: normal bowel sounds Rectal Exam - Male: Yes deferred Skin General skin exam: no rashes or lesions noted, turgor normal, skin not dry, no jaundice, No spider nevi and no striae Rashes: no rashes Nails: normal Neuro General: oriented to person, oriented to place and oriented to time Cranial nerves: Yes Equal, round and reactive pupils present and Yes Normal hearing present Speech: No Abnormal speech present Extrem General: Yes normal to inspection, No clubbing, No cyanosis and No edema Psych Appearance: grossly normal and well kempt Mental Status: mental status grossly normal Speech and movement: Normal speech and movement present Affect: normal affect Attitude: cooperative Thought process: Normal thought process present and not confabulating Thought content: Normal thought content present Insight: Fair insight present (Psych) Judgement: Fair judgement present (Psych) Results Reviewed Results Reviewed: Laboratory Tests 08/07/18 03/12/19 10/30/19 10:01 07:50 10:07 WBC 10.5 Hgb 14.1 Hct 40.7 L MCV 87.7 D Plt Count 208 Est GFR (Non-Af Amer) > 60 Estimated GFR Hemoglobin A1c 7.0 Total Bilirubin 0.4 Direct Bilirubin 0.2 AST 14 ALT 17 Alkaline Phosphatase 90 D 01/17/25 08:40 WBC Hgb Hct MCV Plt Count Est GFR (Non-Af Amer) Estimated GFR > 60 Hemoglobin A1c Total Bilirubin 0.4 Direct Bilirubin AST 18 ALT 18 Alkaline Phosphatase 77 Assessment & Plan Assessment & Plan (1) Tubular adenoma of colon: Comment: 2020 scope a greater than 1 cm TA repeat in 3 years Code(s): D12.6 - Benign neoplasm of colon, unspecified Category: Medical (2) Pre-op examination: Code(s): Z01.818 - Encounter for other preprocedural examination Category: Medical Plan Indonesian #[id number], Fatimah HIs only new health problems is with his prostate and bladder. He denies any bowel problems or upper GI problems. There are no prior problems with anesthesia or sedation. He denies any cardiac or respiratory problems. There is no known FHX of crc or polyps; but his mother 1.5 years ago of cancer of unknown origin. Orders: Orders Colonoscopy - GI Use Only Today D12.6 - Benign neoplasm of colon, unspecified, Z01.818 - Encounter for other preprocedural examination Medications: New bisacodyl (Dulcolax (bisacodyl)) 10 mg (2 x 5 mg) PO BEDTIME 2 days 4 tabs 0RF peg 3350-electrolytes 236-22.74-6.74 -5.86 gram (Golytely) until fecal effluent is clear; do not exceed a total volume of 2,000 mL 240 mL PO Q10M 1 day 4,000 mL 0RF Z12.11 - Encounter for screening for malignant neoplasm of colon Coding Level of Care Code New Pt Level 3 (67887) Diagnoses Tubular adenoma of colon D12.6 Pre-op examination Z01.818
[2025-04-02 10:27] VITALS: BP 146/84; PULSE 76; O2SAT 98; BMI 27.9
--- OUTSIDE RECORDS SUMMARY | 2025-04-02 11:54 | XMS_ITS | Clinical Summary ---
Author Organization [email or web address] Address [address] [place] [address] 7 [place] [address] Care Team Providers Care Cage Manager Name Role Phone Clari Lemons MD Primary [...] Active Blood Glucose Monitoring Suppl (FreeStyle [place] Lite) w/Device kitIndications: Type 2 diabetes mellitus with hyperglycemia, without long-term current use of insulin ([facility]) Use to test blood sugar 2 times daily 1 kit 09/04/20 24 Active glucose blood (FREESTYLE LITE) test stripIndication s:Type 2 diabetes mellitus with hyperglycemia, without long-term current use of insulin ([facility]) USE DIRECTED TO TEST BLOOD SUGAR EVERY [...] AT BEDTIME 90 capsule 11/27/19 25 Active olmesartan (BENIcar) 20 MG tabletIndicatio ns:Primary hypertension Take 1 tablet (20 mg) by mouth Once per day. 30 tablet 11 12/18/19 25 026 Active glipiZIDE XL (Glucotrol XL) 10 MG 24 hr tabletIndicatio ns:Type 2 diabetes mellitus with hyperglycemia, without long-term current use of insulin ([facility]) TAKE 1 TABLET BY MOUTH TWICE DAILY WITH FOOD 180 tablet 1 01/29/20 25 Active atorvastatin (Lipitor) 20 MG tabletIndicatio ns:Type 2 diabetes mellitus with hyperglycemia, without long-term current use of insulin ([facility]) TAKE 1 TABLET BY MOUTH EVERY DAY 90 tablet 1 01/29/20 25 Active amLODIPine (Norvasc) 10 MG tabletIndicatio ns:Hypertension , unspecified type TAKE 1 TABLET BY MOUTH EVERY MORNING 90 tablet 1 01/29/20 25 Active Jardiance 10 MGIndications:T ype 2 diabetes mellitus with hyperglycemia, without long-term current use of insulin ([facility]) TAKE 1 TABLET BY MOUTH EVERY DAY 30 tablet 5 03/29/20 25 Active empagliflozin (Jardiance) 10 MGIndications:T ype 2 diabetes mellitus with hyperglycemia, without long-term current use of insulin ([facility]) Take 1 tablet (10 mg) by mouth Once per day. 90 tablet 12/18/19 25 025 Discontinued Active Problems Problem Noted Date [...] Encounters Date Type Department Care Team Description 03/29/[address] [address] Clari Lemons MD Type 2 diabetes mellitus with hyperglycemia, without long-term current use of insulin ([facility]) 03/04/2025 Patient Outreach [address] [address] Clari Lemons MD Pre-visit Planning (SDOH screening completed on 12/04/2024) 02/07/2025 Orders Only GENERIC EXTERNAL DATA DEPARTMENT Provider, Generic External Data 01/29/2025 2:00 PM EDT Clinical Support [address] [address] Fabiola Nascimento RN Primary hypertension 01/29/[address] [address] Fabiola Nascimento RN Blood Pressure Check 01/29/2025 Travel 01/27/[address] [address] Clari Lemons MD Type 2 diabetes mellitus with hyperglycemia, without long-term current use of insulin ([facility]); Hypertension, unspecified type 01/15/2025 1:00 PM EDT Clinical Support [address] [address] Fabiola Nascimento RN Primary hypertension 01/15/2025 Travel 01/04/2025 Population Health Risk Score [facility] () Department [address] [place] [phone] Provider, Population Health Generic 01/01/2025 1:30 PM EDT Clinical Support [address] [address] Fabiola Nascimento, COLLIN Primary hypertension 01/01/2025 Travel from Last 3 Months Immunizations Immunization Administration Dates Next Due Influenza injectable quadriv [...] Care Team (Late st Contact Info) Description 05/14/2025 3:30 PM EDT Office Visit [facility] MEDICINE [address] [place] [address] Clari Lemons MD [address] [place] [address] 07/22/2025 10:30 AM EDT Office Visit [facility] OPTOMETRY [address] [place] [address] Norman, Jacquie, OD [address] [place] [address] Health Maintenance Due Date Last Done Comments CT Colonography 1962 FIT DNA/Cologuard 1960 FIT 1960 FOBT 1960 HIV Screening 1960 Sigmoidoscopy 1960 Disability Screening 1962 Hepatitis C Screening 1980 Pneumococcal Vaccine: 50+ Years (1 of 2 - PCV) 1981 Zoster Vaccines (1 of 2) 2012 DTaP/Tdap/Td Vaccines (1 - Tdap) 07/23/2022 07/22/2022 Colonoscopy 02/18/2024 02/17/2021 Colorectal Cancer Screening 02/18/2024 Diabetes: Foot Exam 04/05/2024 04/05/2023, COVID-19 Vaccine ( season) 2024 03/06/2021, 02/06/2021 Diabetes: Hemoglobin A1C 03/17/2025 025, 09/04/2024, 05/01/2024, Additional history exists Depression Screening 05/01/2025 05/01/2024, 05/01/20 24 Lipid Panel 05/07/2025 05/07/2024, 03/24, 11/24/2021, Additional history exists Influenza Vaccine (Season Ended) 2025 10/05/2023, 07/22/2022, 08/05/2021, Additional history exists SDOH Screening 12/04/2025 12/04/2024 [...] patient's age to complete this topic Meningococcal B Vaccine Aged Out No l onger eligible based on patient's age to complete [...] hyperglycemia, without long-term current use of insulin ([facility]) ALBUMIN, RANDOM URINE W/CREATININE Routine 01/17/2025 8:40 AM EDT Type 2 diabetes mellitus with hyperglycemia, without long-term current use of insulin ([facility]) POCT GLYCATED HEMOGLOBIN, TOTAL Routine 12/18/2024 9:26 AM EST Type 2 diabetes mellitus with hyperglycemia, without long-term current use of insulin ([facility]) LIPID PANEL WITH REFLEX TO DIRECT LDL Routine 05/07/2024 9:49 AM EDT Type 2 diabetes mellitus with hyperglycemia, without long-term current use of insulin ([facility]) Primary hypertension HM COLONOSCOPY Routine 02/17/2021 from Last 3 Months or Most Recently Relevant to Health Maintenance Results * Prostate biopsy 1-20 (02/07/2025 8:17 AM EDT) 02/07/2025 8:17 AM EDT 02/07/2025 8:30 AM EDT [facility]S - 02/11/2025 10:17 AM EDT ----- ------- Name: Magan Mccoy ?Age/Sex: 64/M ? : 1960 Unit#: [id number] ?? Attend Dr: Giovani Gaona MD ?Re02/07/25 ?Status: DEP REF ? Location: HO.US ? Disch: ? ----- ------- SPEC : [id number] ? RECD: 02/07/25 ? STATUS: ??SOUT ? REQ NUM: [id number] ? JOVON: 02/07/25 ? SUBM DR: Giovani Gaona MD ? ENTERED: ??02/07/25 ?SP TYPE: Surgical ? OTHR DR: Clari Lemons MD ? ORDERED: ??Prostate biopsy/12 ? Diagnosis ?? A: ??Left base lateral: [...] Mccoy ?Age/Sex: 64/M ? : 1960 Unit#: [id number] ?? Attend Dr: Giovani Gaona MD ?Re02/07/25 ?Status: DEP REF ? Location: HO.US ? Disch: ? ----- ------- SPEC : [id number] ? RECD: 02/07/25 ? STATUS: ??SOUT ? REQ NUM: [id number] ? JOVON: 02/07/25 ? SUBM DR: Giovani [...] Mccoy ?Age/Sex: 64/M ? : 1960 Unit#: [id number] ?? Attend Dr: Giovani Gaona MD ?Re02/07/25 ?Status: DEP REF ? Location: HO.US ? Disch: ? ----- ------- SPEC : [id number] ? RECD: 02/07/25 ? STATUS: ??SOUT ? REQ NUM: [id number] ? JOVON: 02/07/25 ? SUBM DR: Giovani [...] Copies To: ?? Clari Lemons MD ?? [facility] ?? [address] [facility] ?? [place] [address] ?? [phone] ?? Giovani Gaona MD ?? [facility] ?? [address] ?? [place] [address] ?? [phone] ----- ------- Signed (signature on file) Dev Good MD 02/11/25 1017 ? ----- ------- ? END OF REPORT ? us Generic External Data Provider LAB PATHOLOGY ORD ERABLES Final Result [facility] [address] [place] [address] [phone] * Cytopath-cell enhanced (01/21/2025 4:55 PM EDT) 01/21/2025 4:55 PM EDT 01/22/2025 6:00 AM EDT Kemi [facility] - 01/22/2025 3:43 PM EDT ----- ------- Name: Magan Mccoy ?Age/Sex: 64/M ? : 1960 Unit#: [id number] ?? Attend Dr: Cecilia Jenkins [facility] ?Re01/21/25 ?Status: DEP REF ? Location: HO.LNP ?Disch: ? ----- ------- SPEC : [id number] ? RECD: 01/22/25 ? STATUS: ??SOUT ? REQ NUM: [id number] ? JOVON: 01/21/25 ? SUBM DR: Cecilia Jenkins ? ENTERED: ??01/22/25 ?SP TYPE: Cytology ? [...] Copies To: ?? Clari Lemons MD ?? [facility] ?? [address] ?? [place] [address] ?? [phone] ?? Cecilia Jenkins ?? [facility] ?? [address] [facility] [address] ?? [place] [address] ?? [phone] ?? [email or web address] ----- ------- Signed (signature on file) Mari Galindo MD 01/22/25 1543 ? ----- ------- ? END OF REPORT ? us Generic External Data Provider LAB CYTOLOGY KAYLEIGH PEDERSEN Final Result [facility] [address] [place] [address] [phone] * (ABNORMAL) Albumin, Random Urine W/Creatinine (01/17/2025 8:40 AM EDT) Creatinine, Urine 109.08 mg/dL [facility] Microalbumin Urine 40.0 mg/L H [facility] Microalbum Creatinine Ratio Ur 36.6(H) <30 ug/mg cr [facility] Comment:Albumin/Creatinine R atio Reference Ranges: Normal: < 30 ug/mg creatinine Microalbuminuria: 30 - 300 ug/mg creatinineClinical Albuminuria: > 300 ug/mg creatinine Urine (Urine, Random) 01/17/2025 8:40 AM EDT 01/17/2025 11:03 AM EDT Clari Zendejas MD LAB URINE ORDERABLES Final Result [facility] [address] [place] [address] [phone] * (ABNORMAL) Comprehensive Metabolic Panel (01/17/2025 8:40 AM EDT) Sodium 138 135 - 145 mmol/L [facility] Potassium 5.0 3.3 - 5.1 mmol/L [facility] Chloride 105 96 - 108 mmol/L [facility] Carbon Dioxide 27 22 - 29 mmol/L [facility] Anion Gap 11(L) 12 - 20 [facility] Urea Nitrogen (BUN) 12 9 - 16 mg/dL [facility] Creatinine, Serum 0.79 0.5 - 1.4 mg/dL [facility] Estimated Glomerular Filt Rate >60 [facility] Comment:Chronic Kidney Disea se: Estimated GFR < 60 mL/min/1.11s6Oiyriv Kidney Disease: Estimated GFR < 15 mL/min/1.73m2 Glucose 149(H) 60 - 115 mg/dL [facility] Calcium 9.4 8.4 - 10.2 mg/dL [facility] Bilirubin, Total 0.4 0.0 - 1.0 mg/dL [facility] Aspartate Amino Transferase 18 5 - 37 U/L [facility] Alanine Aminotransferase 18 0 - 40 U/L [facility] Total Protein 7.8 6.5 - 8.0 g/dL [facility] Albumin Level 4.1 3.5 - 5.0 g/dL [facility] Alkaline Phosphatase 77 39 - 117 U/L [facility] Blood Venous blood specimen / Unknown 01/17/2025 8:40 AM EDT 01/17/2025 11:06 AM EDT us Clari Zendejas MD LAB BLOOD ORDERABLES Final Result [facility] [address] [place] [phone] * (ABNORMAL) POCT HGB A1C (12/18/2024 9:26 AM EST) Hemoglobin A1C 9.2(A) 4.0 - 6.0 % QC Media Lot # [id number] Lot# Expiration Date Blood 12/18/2024 9:26 AM EST us Clari Zendejas MD POINT OF CARE TEST EN TER/EDIT ORDERABLES Final Result * (ABNORMAL) Lipid Panel with Reflex to Direct LDL (05/07/2024 9:49 AM EDT) Triglycerides 200(H) <150 mg/dL [facility] Comment:Desirable Triglyceri de: less than 150 mg/dLBorderline High Triglyceride 150-199 mg/dLHigh Triglyceride: 200-499 mg/dLVery High Triglyceride: greater than or equal to 5OO mg/dL Cholesterol 178 <200 mg/dL [facility] Comment:Desirable Cholestero l: less than 200 mg/dLBorderline High Cholesterol: 200-239 mg/dLHigh Cholesterol: greater than 239 mg/dL LDL Cholesterol Calculated 112(H) <100 mg/dL [facility] Comment:Desirable LDL: less than 100 mg/dLNear Optimal/Above Optimal LDL: 110- 129 mg/dLBorderline High LDL: 130-159 mg/dLHigh LDL: 160-189 mg/dLVery High LDL: greater than or equal to 190 mg/dL HDL Cholesterol 26(L) >40 mg/dL [facility] Comment:Desirable HDL: great er than 40 mg/dL Note: This HDL assay may give artificially low results in patients with liver disease. Blood 05/07/2024 9:49 AM EDT 05/07/2024 11:04 AM EDT Clari Zendejas MD LAB BLOOD ORDERABLES Final Result [facility] [address] [place], [place] [phone] * Hm Colonoscopy (02/17/2021) Colonoscopy Normal Normal Historical Provider HEALTH MAINTENANCE Edited Result - Final from Last 3 Months or Most Recently Relevant to Health Maintenance Insurance [facility] C3 HSN FULL Care Teams Cage Manager Relationship Specialty Start Date End Date Clari Lemons MD [address] [place] [phone] PCP - General Family Medicine 07/14/18
== END 2025-04-02 11:05 | disposition home or self-care (01) ==
LOC: HO.HGI 10:18
PROVIDERS: PCP Internal Medicine; Visit Provider Nurse Practitioner
DX: Z86.0100 Personal history of colon polyps, unspecified (principal); Z01.818 Encounter for other preprocedural examination; Z12.11 Encounter for screening for malignant neoplasm of colon
CPT/HCPCS: 99203

== ENCOUNTER → 2025-04-02 10:17 | Outpatient (BNVA) | payer MEDICAID, SELFPAY | PROVIDERS: PCP Internal Medicine; Visit Provider Nurse Practitioner | DX: Z01.818 Encounter for other preprocedural examination (principal); D12.6 Benign neoplasm of colon, unspecified | CPT/HCPCS: 99212 ==

== ENCOUNTER 2025-04-21 09:22 | Emergency (ER) | payer MEDICAID, SELFPAY ==
--- NOTE | 2025-04-21 09:41 | ED.EYEPROB ---
HPI - Eye Problem General Chief complaint: Eye Problems Stated complaint: eye irritation Time Seen by Provider: 04/21/25 09:36 Source: patient Mode of arrival: ambulatory Limitations: language barrier ([place]unisian-speaking rn medicare utilized) History of Present Illness ED Provider: preston benitez np HPI Narrative: Patient is a 64-year-old male who presents emergency department for evaluation. He reports that yesterday he was doing some heavy lifting. Soon thereafter his saw him and had expressed concern that his eye was red. He did not otherwise notice this until she pointed it out. He denies any associated pain, vision changes, headache, pressure behind the eye, drainage from the eye. He attempted to use OTC drops to the eye last night but still persisted this morning thus he decided to seek evaluation. He denies use of anticoagulants. No overt eye injury or concern for any penetrating injury. No foreign body sensation. Does not wear contact lenses. Related Data Home Medications ?Medication ?Instructions ?Recorded ?Confirmed amlodipine 10 mg tablet 10 mg PO DAILY 01/28/21 02/17/21 atorvastatin 20 mg tablet 20 mg PO DAILY 01/28/21 01/28/21 cholecalciferol (vitamin D3) 50 50 mcg PO DAILY 01/28/21 01/28/21 mcg (2,000 unit) capsule (Vitamin D3) glipizide 10 mg tablet, extended 10 mg PO DAILY 01/28/21 01/28/21 release 24 hr pioglitazone 15 mg tablet (Actos) 15 mg PO DAILY 01/28/21 01/28/21 empagliflozin 10 mg tablet 10 mg PO DAILY 04/02/25 (Jardiance) Previous Rx's ?Medication ?Instructions ?Recorded omeprazole 40 mg capsule,delayed 40 mg PO DAILY #20 caps 08/01/23 release tamsulosin 0.4 mg capsule 0.8 mg (2 x 0.4 mg) PO BEDTIME 90 01/21/25 days #180 caps finasteride 5 mg tablet 5 mg PO DAILY 90 days #90 tabs 02/21/25 bisacodyl 5 mg tablet,delayed 10 mg (2 x 5 mg) PO BEDTIME 2 days 04/02/25 release (Dulcolax (bisacodyl)) #4 tabs peg 3350-electrolytes 236 240 ml PO Q10M 1 day #4,000 mL 04/02/25 gram-22.74 gram-6.74 gram-5.86 gram solution (Golytely) Allergies Allergy/AdvReac Type Severity Reaction Status Date / Time metformin Allergy Rash Verified 04/21/25 09:45 Review of Systems Review of Systems: Yes all other systems are reviewed and are negative [facility] Past Medical History Attestation statement: The following information was validated with the patient. Source: old records reviewed Medical History Diabetes BPH (benign prostatic hyperplasia) Hypertension Surgical History History of biopsy Hx of colonoscopy Hx of colonoscopy Family History Family History Father Parkinsons Mother No problems noted. Social History Social History Household Members: Spouse, Family and Children Alcohol intake: never Cigarettes Per Day: 7 Advance Directives: No Advance Directives Information Provided: Yes Do you have a plan to hurt others: No Plan Physical Exam Vital Signs: Vital Signs: Last Vital Signs Temp 98.1 F 04/21/25 09:43 Pulse 69 04/21/25 09:43 Resp 18 04/21/25 09:43 BP 139/76 04/21/25 09:43 Pulse Ox 97 04/21/25 09:43 O2 Del Method Room Air 04/21/25 09:43 BMI result Body Mass Index 27.8 Appearance: Alert.?Oriented to person, place and time. No acute distress.?Normal affect. Eyes: Pupils equal, round and reactive to light.? EOMI. No nystagmus. Left medial subconjunctival hemorrhage. Visual acuity: Left - 20/30, Right - 20/40. Both 20/30. No chemosis. No hyphema. ENT: Pharynx normal.?? Neck: Normal inspection.? Neck supple.?? CVS: Heart sounds normal. Normal heart rate and rhythm.? Pulses normal.?? Respiratory: No respiratory distress.? Lung sounds clear to auscultation bilaterally?? Skin: Skin warm and dry.? Normal skin color.? Extremities: No lower extremity edema.? Neuro: Moves all extremities spontaneously. Sensation intact bilaterally. No focal neuro deficits. Ambulates with normal steady gait. Medical Decision Making Medical Decision Making MDM Narrative: Patient is a 64-year-old male with past medical history of hypertension, diabetes, BPH who presents emergency department for evaluation of redness to the medial sclera of the left eye on examination is consistent with subconjunctival hemorrhage following heavy lifting/straining. No use of anticoagulants. No physical complaints. His examination is otherwise benign. No visual impairment. On neurological deficits. EOMI. No painful hordeolum or painless chalazion on examination. No evidence of foreign body on examination, lid eversion is negative. No associated unilateral headache, fixed pupil, associated vomiting, or increased intra-ocular pressure to suggest acute angle glaucoma. No periorbital edema erythema or warmth to suggest periorbital cellulitis, no painful EOMI to suggest orbital cellulitis. Not described as a severe constant boring pain worse at night in the morning, nonradiating, to suggest scleritis. No ciliary flushing or consensual photophobia to suggest uveitis/iritis. On examination does not have corneal opacity or infiltrate with foreign body sensation, mucopurulent discharge or hypopyon in the setting of a presumed recent conjunctivitis to suggest keratitis. No overt trauma, not consistent with penetrating injury or globe rupture additionally no hyphema. No painless acute loss of vision to suggest retinal detachment, vitreous detachment for hemorrhage. Differential Diagnosis Differential Diagnoses: The differential diagnosis associated with the presentation includes (See narrative above) External Record Review External record reviewed: Outpatient record Chronic Conditions Patient?s care impacted by: Other (See narrative above) Discharge Plan Discharge Clinical Impression: Subconjunctival hemorrhage Patient Disposition: Home, Self-Care Additional Instructions: As discussed, this is caused from a broken blood vessel on the surface of your eyes sometimes this can occur after coughing, sneezing, straining very hard such as with heavy lifting. It is common in people who have past medical history such as yourself including diabetes and high blood pressure. There is no specific treatment that I am need to do at home this will resolve on its own typically within 2 weeks most. You can expect red color to exchange clerk time and have a more yellowing appearance this is typical. Please return back to emergency department any new or worsening symptoms or concerns which include but is not limited to worsening redness, swelling, vision changes, associated pain, drainage from the eye, swelling surrounding the eye, pressure behind the eye, headaches. Prescriptions: No Action pioglitazone [Actos] 15 mg Tablet 15 mg PO DAILY atorvastatin 20 mg Tablet 20 mg PO DAILY glipizide 10 mg Tablet Extended Release 24hr 10 mg PO DAILY amlodipine 10 mg Tablet 10 mg PO DAILY cholecalciferol (vitamin D3) [Vitamin D3] 50 mcg (2,000 unit) Capsule 50 mcg PO DAILY omeprazole 40 mg capsule,delayed release(DR/EC) 40 mg PO DAILY Qty: 20 0RF finasteride 5 mg tablet 5 mg PO DAILY 90 Days Qty: 90 1RF tamsulosin 0.4 mg capsule 0.8 mg PO BEDTIME 90 Days Qty: 180 1RF Jardiance 10 mg tablet 10 mg PO DAILY peg 3350-electrolytes [Golytely] 236-22.74-6.74 -5.86 gram recon soln 240 ml PO Q10M 1 Days Qty: 4000 0RF Rx Instructions: until fecal effluent is clear; do not exceed a total volume of 2,000 mL bisacodyl [Dulcolax (bisacodyl)] 5 mg tablet,delayed release (DR/EC) 10 mg PO BEDTIME 2 Days Qty: 4 0RF Referrals: Clari Lemons MD [Primary Care Provider, Internal Medicine] Print Language: Tunisian
[2025-04-21 09:43] VITALS: BP 139/76; PULSE 69; RESP 18; TEMP 36.7; O2SAT 97; BMI 27.8
[2025-04-21 10:32] VITALS: BP 139/76; PULSE 69; RESP 18; TEMP 36.7; O2SAT 97
== END 2025-04-21 10:38 | disposition home or self-care (01) ==
PROVIDERS: Emergency Provider Emergency Medicine; PCP Internal Medicine
DX: H11.32 Conjunctival hemorrhage, left eye (principal); H57.89 Other specified disorders of eye and adnexa
CPT/HCPCS: 99283

== ENCOUNTER 2025-10-14 10:23 | Outpatient (REF) | payer MEDICAID, SELFPAY ==
[2025-10-14 11:31] LABS: PSA,Total (Free>4and<10) 5.66 ng/mL (0.00-4.00)
--- OUTSIDE RECORDS SUMMARY | 2025-10-14 12:38 | XMS_ITS | Clinical Summary ---
Author Organization [employer] Address [address] [place] [address] [address] [place] [address] Care Team Providers Care Lining Feller Blindstitch Name Role Phone Clari Lemons MD Primary Care Provide r Allergies Active Allergy Reactions Criticality Noted Date Comments Metformin 10/08/2020 Other reaction(s): Hives / Skin Rash Medications Blood Pressure Monitoring (Omron 3 Series BP Monitor) device USE TO CHECK BLOOD PRESSURE EVERY DAY 1 each 4 Active Blood Glucose Monitoring Suppl (FreeStyle [place] Lite) w/Device kitIndications:Ty pe 2 diabetes mellitus with hyperglycemia, without long-term current use of insulin (HCC) Use to test blood sugar 2 times daily 1 kit 4 Active glucose blood (FREESTYLE LITE) test stripIndications: Type 2 diabetes mellitus with hyperglycemia, without long-term current use of insulin (HCC) USE DIRECTED TO TEST BLOOD SUGAR EVERY DAY 100 strip 3 4 Active Easy Touch Lancets 33G/Twist misc Inject 1 each under the skin Once per day. TEST BLOOD SUGAR EVERY DAY 100 each 5 5 Active tamsulosin (Flomax) 0.4 MG 24 hr capsuleIndication s:Benign prostatic hyperplasia with urinary frequency TAKE 1 CAPSULE BY MOUTH AT BEDTIME 90 capsule 5 Active D3 Super Strength 50 MCG (1999 UT) capsule TAKE 1 CAPSULE BY MOUTH EVERY DAY 90 capsule 1 5 Active finasteride (Proscar) 5 MG tablet Take 5 mg by mouth Once per day. Active empagliflozin (Jardiance) 25 MGIndications:Typ e 2 diabetes mellitus with hyperglycemia, without long-term current use of insulin (HCC) Take 1 tablet (25 mg) by mouth Once per day. 90 tablet 1 10/08/2025 1:57 PM EST 08/15/20 Active glipiZIDE XL (Glucotrol XL) 10 MG 24 hr tabletIndications :Type 2 diabetes mellitus with hyperglycemia, without long-term current use of insulin (HCC) TAKE 1 TABLET BY MOUTH TWICE DAILY WITH FOOD 180 tablet 1 Active olmesartan (BENIcar) 20 MG tabletIndications :Primary hypertension Take 1 tablet (20 mg) by mouth Once per day. 90 tablet 1 5 08/15/20 Active amLODIPine (Norvasc) 10 MG tabletIndications :Hypertension, unspecified type TAKE 1 TABLET BY MOUTH EVERY MORNING 90 tablet 1 Active atorvastatin (Lipitor) 20 MG tabletIndications :Type 2 diabetes mellitus with hyperglycemia, without long-term current use of insulin (HCC) Take 1 tablet (20 mg) by mouth Once per day. 90 tablet 1 Active sildenafil (Viagra) 50 MG tabletIndications :Erectile dysfunction, unspecified erectile dysfunction type Take 1 tablet (50 mg) by mouth if needed each day for erectile dysfunction. 10 tablet Active Active Problems Problem Noted Date Diagnosed Date Bladder outlet obstruction 08/15/2025 Elevated PSA 08/15/2025 Gastritis 08/15/2025 Hematoma of gingiva 08/15/2025 Lower urinary tract symptoms 08/15/2025 Pre-op examination 08/15/2025 Renal cyst 08/15/2025 Subconjunctival hemorrhage 08/15/2025 Tubular adenoma of colon 08/15/2025 Overview (08/15/2025): 2020 scope a greater than 1 cm TA repeat in 3 years Abdominal pain 08/15/2025 Cervical paraspinous muscle spasm 08/15/2025 Pain, dental 08/15/2025 Onychomycosis 08/15/2025 Erectile dysfunction 05/15/2025 Assessment & Plan (05/15/2025 7:57 PM EDT): Sildenafil was prescribed today side effects and medication interactions were reviewed Colon cancer screening 12/18/2024 Muscle spasm 09/04/2024 [...] 07/14/2018 Diabetes mellitus 07/14/2018 Assessment & Plan (05/15/2025 7:57 PM EDT): Diabetes is: not controlled - Lab Results Component Value Date HGBA1C 9.1 (A) 05/15/2025 HGBA1C 9.2 (A) 12/18/2024 HGBA1C 7.1 (A) 09/04/2024 - Lab Results Component Value Date MICROALBUR 40.0 01/17/2025 CREATININE 0.79 01/17/2025 -Changes: I increase his Jardiance to 25 mg daily, continue with glipizide 10 mg twice daily - Diabetic eye exam: Up-to-date - Diabetic foot exam: Pending - Continue lifestyle modifications - Continue current medications - Follow up: 3 months Assessment & Plan (12/18/2024 12:21 PM EST): [...] televisit Hypertensive disorder 07/14/2018 Assessment & Plan (05/15/2025 7:56 PM EDT): On review of chart it was noticed he has not been taking olmesartan since December of this year, I refill his medication today I advised her to take it every day without missing any dose I also advised to continue to take his amlodipine 10 mg daily, he was also advised low-sodium diet and weight reduction Assessment & Plan (12/18/2024 12:20 PM EST): [...] Encounters Date Type Department Care Team Description 08/22/2025 10:00 AM EDT Office Visit [facility] [address] [place] [address] Jacquie Austin, OD Regular astigmatism of both eyes (Primary Dx) 08/15/2025 2:30 PM EDT Office Visit [facility] [address] [place] [address] Clari Lemons MD Pain, dental; Type 2 diabetes mellitus with hyperglycemia, without long-term current use of insulin (HCC); Screening for colon cancer; Onychomycosis; Primary hypertension; Hypertension, unspecified type; Erectile dysfunction, unspecified erectile dysfunction type; Dietary counseling; Exercise counseling 08/15/2025 Travel 08/14/2025 Telephone [facility] [address] [place] [address] Clari Lemons MD chart prep 08/08/2025 Patient Outreach [facility] [address] [place], [place] [phone] Clari Lemons MD Pre-visit Planning (SDOH was already completed ) 07/22/2025 10:30 AM EDT Office Visit [facility] [address] [place], [place] [phone] Jacquie Austin, OD Diabetes type 2, no ocular involvement (CMS/HCC) (Primary Dx); Combined forms of age-related cataract of both eyes; Asteroid hyalosis of right eye; Presbyopia of both eyes 07/22/2025 Travel from Last 3 Months Immunizations Immunization [...] Answer Date Recorded Patient Health Questionnaire-9 Score 2 05/15/2025 Patient Health Questionnaire-9 Score 2 05/15/2025 Last PHQ-9: Questionnaire Data Not on file 0 05/15/2025 Housing Stability Answer Date Recorded What is [...] Answer Date Recorded Patient Health Questionnaire-2 Score 1 05/15/2025 Internet Access Answer Date Recorded Internet Access [...] Sign Reading Time Taken Comments Blood Pressure 140/90 08/15/2025 2:33 PM EDT Pulse 68 08/15/2025 2:33 PM EDT Temperature 35.7 C (96.3 F) 08/15/2025 2:33 PM EDT Respiratory Rate 20 08/15/2025 2:33 PM EDT Oxygen Saturation 98% 08/15/2025 2:33 PM EDT Inhaled Oxygen Concentration - - Weight 75.9 kg (167 lb 6.4 oz) 08/15/2025 2:33 P M EDT Height 167.6 cm (5' 6 ) 08/15/2025 2:33 PM EDT Body Mass Index 27.02 08/15/2025 2:33 PM EDT Plan of Treatment Health Maintenance Due Date Last Done Comments CT Colonography 1962 FIT 1962 HIV Screening 1962 Sigmoidoscopy 1962 Hepatitis C Screening 1980 Pneumococcal Vaccine: 50+ Years (1 of 2 - PCV) 1981 Zoster Vaccines (1 of 2) 2012 DTaP/Tdap/Td Vaccines (1 - Tdap) 07/23/2022 07/22/2022 Colonoscopy 02/18/2024 02/17/2021 Diabetes: Foot Exam 04/05/2024 04/05/2023, 3 Lipid Panel 05/07/2025 05/07/2024, 03/24, 11/24/2021, Additional history exists COVID-19 Vaccine (3 - season) 2025 03/06/2021, 02/06/2021 Influenza Vaccine (#1) 2025 3, 07/22/2022, 08/05/2021, Additional history exists Colorectal Cancer Screening 09/12/2025 Diabetes: Hemoglobin A1C 11/15/2025 025, 05/15/2025, 12/18/2024, Additional history exists SDOH Screening 12/04/2025 12/04/2024 Alcohol/Substance Use Screening 12/18/2025 12/18/2024 Diabetes: Urine Protein Screening 01/17/2026 01/17/2025, 01/17/2025, 04/05/2023, Additional history exists Depression Screening 05/15/2026 05/15/2025, 05/15/20 Disability Screening 05/15/2026 05/15/2025 Tobacco Screening 08/15/2026 08/15/2025 FOBT 09/11/2026 09/11/2025 Eye Exam 07/22/2027 07/22/2025, 06/25, 07/22/2025, Additional history exists FIT DNA/Cologuard 09/11/2028 09/11/2025 RSV Patients and Patients Aged 60 years [...] Procedure Name Priority Date/Time Associated Diagnosis Comments PSA, TOTAL WITH REFLEX TO PSA, FREE Routine 10/14/2025 10:32 AM EST LAB COLOGUARD COLON CANCER SCREEN Routine 09/11/2025 11:00 AM EST Screening for colon cancer POCT GLYCATED HEMOGLOBIN, TOTAL Routine 08/15/2025 3:05 PM EDT Type 2 diabetes mellitus with hyperglycemia, without long-term current use of insulin (HCC) POCT GLUCOSE (CPT-79343) Routine 08/15/2025 3:05 PM EDT Type 2 diabetes mellitus with hyperglycemia, without long-term current use of insulin (HCC) ALBUMIN, RANDOM URINE W/CREATININE Routine 01/17/2025 8:40 AM EDT Type 2 diabetes mellitus with hyperglycemia, without long-term current use of insulin (CMS/HCC) LIPID PANEL WITH REFLEX TO DIRECT LDL Routine 05/07/2024 9:49 AM EDT Type 2 diabetes mellitus with hyperglycemia, without long-term current use of insulin ([facility]) Primary hypertension HM COLONOSCOPY Routine 02/17/2021 from Last 3 Months or Most Recently Relevant to Health Maintenance Results * (ABNORMAL) PSA, Total With Reflex to PSA, Free (10/14/2025 10:32 AM EST) PSA,Total (Free>4and<10) 5.66(H) 0.00 - 4.00 ng/mL [facility] Comment:PSA methodology: Alona Maciel i ChemiluminescentMicroparticle Immunoassay (CMIA) 10/14/2025 10:3 2 AM EST 10/14/2025 10:32 AM EST us Generic External Data Provider LAB BLOOD ORDERAB LES Final Result [facility] [address] [place] [phone] * Cologuard?? colon cancer screening (09/11/2025 11:00 AM EST) Cologuard Result Negative Negative 09/27/20 12:15 PM EST [facility] (CLIA #:[id number]) Comment: The Cologuard (TM) test was performed on this specimen. NEGATIVE TEST RESULT. A negative Cologuard result indicates a low likelihood that a colorectal cancer (CRC) or advanced adenoma (adenomatous polyps with more advanced pre-malignant features) is present. The chance that a person with a negative Cologuard test has a colorectal cancer is less than 1 in 1500 (negative predictive value >99.9%) or has an advanced adenoma is less than 5.3% (negative predictive value 94.7%). These data are based on a prospective cross-sectional study of 10,000 individuals at average risk for colorectal cancer who were screened with both Cologuard and colonoscopy. (Arlyn Dupree et al, N Engl J Med 2014;370(14):1286- 1297) The normal value (reference range) for this assay is negative. COLOGUARD RE-SCREENING RECOMMENDATION: Periodic colorectal cancer screening is an important part of preventive healthcare for asymptomatic individuals at average risk for colorectal cancer. Following a negative Cologuard result, the [place] Cancer Society and U.S. Multi-Society Task Force screening guidelines recommend a Cologuard re-screening interval of 3 years. References: [place] [employer] Society Guideline for Colorectal Cancer Screening: https://www.cancer.org/cancer/ipknw-iphirz-bcqzvv/dupvniqod-gfroobyjp-nqbcybj/ac s-rec ommendations.html.; Loi DK, Bowen CR, Isabel DewittK, Colorectal Cancer Screening: Recommendations for Physicians and Patients from the U.S. Multi-Society Task Force on Colorectal Cancer Screening , Am J Gastroenterology 2017; 112:8733-4126. TEST DESCRIPTION: Composite algorithmic analysis of stool DNA-biomarkers with hemoglobin immunoassay. Quantitative values of individual biomarkers are not reportable and are not associated with individual biomarker result reference ranges. Cologuard is intended for colorectal cancer screening of adults of either sex, 45 years or older, who are at average-risk for colorectal cancer (CRC). Cologuard has been approved for use by the U.S. FDA. The performance of Cologuard was established in a cross sectional study of average-risk adults aged 50-84. Cologuard performance in patients ages 45 to 49 years was estimated by sub-group analysis of near-age groups. Colonoscopies performed for a positive result may find as the most clinically significant lesion: colorectal cancer [4.0%], advanced adenoma (including sessile serrated polyps greater than or equal to 1cm diameter) [20%] or non- advanced adenoma [31%]; or no colorectal neoplasia [45%]. These estimates are derived from a prospective cross-sectional screening study of 10,000 individuals at average risk for colorectal cancer who were screened with both Cologuard and colonoscopy. (Arlyn Rendon al, N Engl J Med 2014;370(14):8757-8679.) Cologuard may produce a false negative or false positive result (no colorectal cancer or precancerous polyp present at colonoscopy follow up). A negative Cologuard test result does not guarantee the absence of CRC or advanced adenoma (pre-cancer). The current Cologuard screening interval is every 3 years. ([place] Cancer Society and U.S. Multi-Society Task Force). Cologuard performance data in a 10,000 patient pivotal study using colonoscopy as the reference method can be accessed at the following location: www.GameTube/results. Additional description of the Cologuard test process, warnings and precautions can be found at www.DelaGetogThrillophilia.comrd.com. Stool specimen (specimen) 09/11/2025 11:00 AM EST 09/12/2025 10:48 AM EST us Clari Zendejas MD LAB MOLECULAR DIAGNOS TICS ORDERABLES Final Result [facility] (CLIA #:[id number]) [address] [place] [address], * (ABNORMAL) POCT Hgb A1c (08/15/2025 3:05 PM EDT) Hemoglobin A1C 8.2(A) 4.0 - 5.7 % QC Media Lot # [id number] Lot# Expiration Date Blood 08/15/2025 3:05 PM EDT us Clari Zendejas MD POINT OF CARE TEST EN TER/EDIT ORDERABLES Final Result * POCT Glucose (08/15/2025 3:05 PM EDT) Glucose Blood, POC 90 60 - 200 mg/dL QC Media Lot # [id number] Lot# Expiration Date Blood Capillary blood specimen / Unknown 08/15/2025 3:05 PM EDT Clari Zendejas MD POINT OF CARE TEST EN TER/EDIT ORDERABLES Final Result * (ABNORMAL) Albumin, Random Urine W/Creatinine (01/17/2025 8:40 AM EDT) Creatinine, Urine 109.08 mg/dL [facility] Microalbumin Urine 40.0 mg/L [facility] Microalbum Creatinine Ratio Ur 36.6(H) <30 ug/mg cr [facility] Comment:Albumin/Creatinine R at Reference Ranges: Normal: < 30 ug/mg creatinine Microalbuminuria: 30 - 300 ug/mg creatinineClinical Albuminuria: > 300 ug/mg creatinine Urine (Urine, Random) 01/17/2025 8:40 AM EDT 01/17/2025 11:03 AM EDT Clari Zendejas MD LAB URINE ORDERABLES Final Result [facility] [address] [place], [place] [phone] * (ABNORMAL) Lipid Panel with Reflex to Direct LDL (05/07/2024 9:49 AM EDT) Triglycerides 200(H) <150 mg/dL [facility] Comment:Desirable Triglyceri de: less than 150 mg/dLBorderline High Triglyceride 150-199 mg/dLHigh Triglyceride: 200-499 mg/dLVery High Triglyceride: greater than or equal to 5OO mg/dL Cholesterol 178 <200 mg/dL [facility] Comment:Desirable Cholestero l: less than 200 mg/dLBorderline High Cholesterol: 200-239 mg/dLHigh Cholesterol: greater than 239 mg/dL LDL Cholesterol Calculated 112(H) <100 mg/dL [facility] Comment:Desirable LDL: less than 100 mg/dLNear Optimal/Above Optimal LDL: 110- 129 mg/dLBorderline High LDL: 130-159 mg/dLHigh LDL: 160-189 mg/dLVery High LDL: greater than or equal to 190 mg/dL HDL Cholesterol 26(L) >40 mg/dL [facility] Comment:Desirable HDL: great er than 40 mg/dL Note: This HDL assay may give artificially low results in patients with liver disease. Blood 05/07/2024 9:49 AM EDT 05/07/2024 11:04 AM EDT Clari Zendejas MD LAB BLOOD ORDERABLES Final Result Performing Organization Address City/State/[facility] Co de Phone Number [facility] [address] [place] [phone] * Colonoscopy (02/17/2021) Colonoscopy Normal Normal Historical Provider HEALTH MAINTENANCE Edited Result - Final from Last 3 Months or Most Recently Relevant to Health Maintenance Insurance [facility] C3 HSN FULL * Guarantor: Magan Mccoy Account Type Relation to Patient Date of Phone Billing Address Personal/Family [place] [address] Care Teams Lining Feller Blindstitch Relationship Specialty Start Date End Date Clari Lemons MD [address] [place] [phone] PCP - General Family Medicine 07/14/18
--- OUTSIDE RECORDS SUMMARY | 2025-10-14 12:38 | XMS_ITS | Encounter Summary ---
Author Organization [employer] Address [address] [facility] 7t [place] [address] Care Team Providers Care Hook And Eye Attacher Name Role Phone Clari Lemons MD Primary Care Provide r Seven Lopez RN Unavailable Vivian Jimenez Unavailable Reason for Visit * Reason Onset Date Comments New Med Request 11/04/2023 Encounter Details Date Type Department Care Team (Late st Contact Info) Description 11/04/2023 Telephone [facility] MEDICINE [address] [place], [place] [phone] Clari Lemons MD [address] [place], [place] [phone] New Med Request Social History Tobacco Use [...] documented in this encounter Plan of Treatment Not on file documented as of this encounter Visit Diagnoses Not on filedocumented in this encounter Care Teams Hook And Eye Attacher Relationship Specialty Start Date End Date Clari Lemons MD [address] [place] [address] PCP - General Family Medicine 07/14/18 Seven Lopez RN [address] [place] [phone] Registered Nurse Family Medicine 04/22/25 04/23/25 Vivian Jimenez 04/22/25 04/23/25 documented as of this encounter
--- OUTSIDE RECORDS SUMMARY | 2025-10-14 12:38 | XMS_ITS | Encounter Summary ---
Author Organization [employer] Address [address] [place] [address] 7t [place] [address] Care Team Providers Care Educational Coordinator Name Role Phone Clari Lemons MD Primary Care Provide r Seven Lopez RN Unavailable [phone] Vivian Jimenez Unavailable Reason for Visit * Reason Comments Med Refill Encounter Details Date Type Department Care Team (Late st Contact Info) Description 06/03/2023 Refill [facility] MED[facility]INE [address] [place], [place] [phone] Clari Lemons MD [address] [place], [place] [phone] Social History Tobacco Use Types Packs/Day Years [...] as of this encounter Plan of Treatment Not on file documented as of this encounter Visit Diagnoses Not on filedocumented in this encounter Care Teams Educational Coordinator Relationship Specialty Start Date End Date Clari Lemons MD [address] [place] [address] PCP - General Family Medicine 07/14/18 Seven Lopez, COLLIN [address] [place] [phone] Registered Nurse Family Medicine 04/22/25 04/23/25 Vivian Jimenez 04/22/25 04/23/25 documented as of this encounter
--- OUTSIDE RECORDS SUMMARY | 2025-10-14 12:39 | XMS_ITS | Clinical Summary ---
Author Organization [address] [facility] Address [address] [place] [address] Phone Care Team Providers Care Long Lines Operator Name Role Phone Clari Lemons MD Primary Care Provide r Social History Tobacco Use Types Packs/Day Years Used Date Smoking Tobacco: Never Assessed Sex and Gender Information Value Date Recorded Sex Assigned at Not on file Legal Sex Male 8:51 AM EDT Gender Identity Not on file Sexual Orientation Not on file Plan of Treatment Upcoming Encounters Date Type Department Care Team ([facility] Contact Info) Description 12/24/2025 8:30 AM EST Consult Orthopedic Surgery - [place] [address] [phone] Shahab Hurley, DPM [address] [phone] Health Maintenance Due Date Last Done Comments Colorectal Cancer Screening: Colonoscopy 1962 Diabetes: Annual GFR (Glomer ular Filtration Rate) 1962 Diabetes: Annual Foot Exam 1972 Diabetes: Annual Retina Eye Exam 1972 DTaP,Tdap,and Td Vaccines (1 - Tdap) 1981 Pneumococcal Vaccine: 50+ Ye ars (1 of 2 - PCV) 1981 Zoster Vaccines (1 of 2) 2012 Depression Screening 10/24/2024 COVID-19 Vaccine (1 - 2024-2 6 season) 2025 Influenza Vaccine (#1) 2025 Cholesterol Screening (Lipid Panel) 08/19/2025 Diabetes: Annual Urine Albumin-Creatinine Ratio (uACR) 08/19/2025 Diabetes: Blood Sugar Contro l Test (HGBA1C) 08/19/2025 HIV Screening 08/19/2025 Hepatitis C Screening 08/19/2025 Social Influencers of Health Screening 08/19/2025 RSV Immunization Adult Patie nts (1 - 1-dose 75+ series) 2037 HIB [...] on patient's age to complete this topic MMR Vaccines Aged Out No longer eligi ble based on patient's age to complete this topic Meningococcal ACWY Vaccine Aged Out N o longer eligible based on patient's age to complete this topic Meningococcal B Vaccine Aged Out No l onger eligible based on patient's age to complete this topic RSV Immunization Patients Un dipika 20 months Aged Out No longer eligible b ased on patient's age to complete this topic Varicella Vaccines Aged Out No longer eligible based on patient's age to complete this topic Insurance MEDICAID - [place] Care Teams Long Lines Operator Relationship Specialty Start Date End Date Clari Lemons MD [address] [phone] PCP - General Internal Medicine 08/19/25
--- OUTSIDE RECORDS SUMMARY | 2025-10-14 12:39 | XMS_ITS | Encounter Summary ---
Author Organization [employer] Address [address] [facility] 7t [place] [address] Care Team Providers Care Metal Fabricating Inspector Name Role Phone Clari Lemons MD Primary Care Provide r Seven Lopez RN Unavailable [phone] Vivian Jimenez Unavailable Encounter Details Date Type Department Care Team (Late st Contact Info) Description 06/30/2023 Orders Only [facility] MEDICINE [address] [place] [address] Provider, MD Mihir Social History Tobacco Use [...] on file documented as of this encounter Procedures Procedure [...] (07/31/2023 11:48 PM EDT) Color Urine Yellow [facility] Appearance Urine Clear [facility] PH 5.5 5.0 - 9.0 [facility] Glucose Urine UA >=1000(A) Negative mg/dL [facility] Urine Blood Trace(A) Negative [facility] Specific [place] - Urine 1.020 1.005 - 1.025 [facility] Urine Protein Negative Neg-Trace mg/dL [facility] Urine Ketones Negative Negative mg/dL [facility] Nitrite Urine Negative Negative [facility] Leukocyte Esterase Urine Negative Negative [facility] RBC Urine 0-2 0 - 2 /HPF [facility] Urine WBC 0-5 0 - 5 /HPF [facility] Urine Squamous Epithelial Cell 0-2 0 - 2 /HPF [facility] Urine Bacteria None Seen None Seen [facility] Hyaline Casts, Urine 0-2 0 - 2 /LPF [facility] 07/31/2023 11:4 8 PM EDT 07/31/2023 11:52 PM EDT Narrative [facility] - 08/01/2023 12:02 AM EDT Urine, Clean Catch us [facility] External Provider LAB URI NE ORDERABLES Final Result [facility] [address] [place] [address] [phone] * High Sensitivity Troponin I (07/31/2023 6:08 PM EDT) Pathologist [facility] TROPONIN I HIGH SENSITIVITY <2.7 <3.5 - 35.0 ng/L [facility] Comment:The [place] high sens itivity Troponin-I results should beused in conjunction with other diagnostic information suchas ECG, clinical observations and information, and patientsymptoms to aid in the diagnosis of PR. 07/31/2023 6:08 PM EDT 07/31/2023 6:11 PM EDT us [facility] External Provider LAB BLO OD ORDERABLES Final Result [facility] [address] [place] [phone] * (ABNORMAL) CBC auto differential (07/31/2023 6:08 PM EDT) Pathologist [facility] White Blood Count 13.9(H) 4.8 - 10.8 X10*3/uL [facility] Red Blood Count 5.06 4.60 - 5.80 X10*6/uL [facility] Hemoglobin 15.5 14.0 - 18.0 g/dl [facility] Hematocrit 46.0 42.0 - 52.0 % [facility] Mean Corpuscular Volume 90.9 80.0 - 98.0 fL [facility] Mean Corpuscular Hemoglobin 30.6 27.0 - 33.0 pg [facility] Mean Corpuscular HGB Conc 33.7 31.0 - 36.0 g/dl [facility] Red Cell Distribution Width 14.0 11.0 - 16.0 % [facility] Platelet Count 206 160 - 400 X10*3/uL [facility] Mean Platelet Volume 11.3 9.4 - 12.4 fL [facility] Neutrophils Percent Auto 65.0 45 - 73 % [facility] Imm Gran Pct Auto 0.4 0.0 - 0.4 % [facility] Lymphocytes Percent Auto 24.9 20 - 40 % [facility] Monocytes Percent Auto 7.5 2 - 11 % [facility] Eosinophils Percent Auto 1.9 0 - 4 % [facility] Basophils Percent Auto 0.3 0 - 2 % [facility] NRBC Pct Auto 0.0 0.0 - 0.2 /100WBC [facility] Neutrophils Absolute Auto 9.1(H) 2.0 - 8.3 x10*3/uL [facility] Imm Gran Abs Auto 0.05(H) 0.00 - 0.03 X10*3/uL [facility] Lymphocytes Absolute Auto 3.5 1.2 - 4.9 X10*3/uL [facility] Monocytes Absolute Auto 1.1 0.1 - 1.2 X10*3/uL [facility] Eosinophils Absolute Auto 0.3 0.0 - 0.4 X10*3/uL [facility] Basophils Absolute Auto 0.0 0.0 - 0.2 X10*3/uL [facility] NRBC Abs Auto 0.000 0.0 - 0.012 X10*3/uL [facility] 07/31/2023 6:08 PM EDT 07/31/2023 6:11 PM EDT [facility] External Provider LAB BLO OD ORDERABLES Final Result Performing Organization Address City/[facility]/ZIP Co de Phone Number [facility] [address] [place] [phone] * Lipase (07/31/2023 6:08 PM EDT) Lipase 17 8 - 78 U/L [facility] 07/31/2023 6:08 PM EDT 07/31/2023 6:11 PM EDT Generic External Data Provider LAB BLOOD ORDERAB LES Final Result Performing Organization Address City/[facility]/ZIP Co de Phone Number [facility] [address] [place] [phone] * (ABNORMAL) Comprehensive Metabolic Panel (07/31/2023 6:08 PM EDT) Sodium 138 135 - 145 mmol/L [facility] Potassium 4.8 3.3 - 5.1 mmol/L [facility] Chloride 104 96 - 108 mmol/L [facility] Carbon Dioxide 23 22 - 29 mmol/L [facility] Anion Gap 16 12 - 20 [facility] Urea Nitrogen (BUN) 15 9 - 16 mg/dL [facility] Creatinine, Serum 1.04 0.5 - 1.4 mg/dL [facility] Creatinine Clr Calc Pharmacy 74.1 [facility] Comment:eGFR (calculated fro m the MDRD study equation) and eCrCl(calculated from the Cockcroft-Gault equation) are based ondifferent parameters and may not yield comparable results.If eCrCl result is absurd, please check patient'sheight/weight. Estimated Glomerular Filt Rate >60 [facility] Comment:NOTE: For -Am erican individuals, multiply the result by 1.210.Chronic Kidney Disease: Estimated GFR < 60 mL/min/[id number] Kidney Disease: Estimated GFR < 15 mL/min/1.73m2 Glucose 105 60 - 115 mg/dL [facility] Calcium 9.9 8.4 - 10.2 mg/dL [facility] Bilirubin, Total 0.3 0.0 - 1.0 mg/dL [facility] Aspartate Amino Transferase 11 5 - 37 U/L [facility] Alanine Aminotransferase 12 0 - 40 U/L [facility] Total Protein 8.3(H) 6.5 - 8.0 g/dL [facility] Albumin Level 4.2 3.5 - 5.0 g/dL [facility] Alkaline Phosphatase 73 39 - 117 U/L [facility] 07/31/2023 6:08 PM EDT 07/31/2023 6:11 PM EDT us [facility] External Provider LAB BLO OD ORDERABLES Final Result [facility] [address] [place] [phone] * Hm Colonoscopy (02/17/2021) Colonoscopy Normal Normal us Historical Provider HEALTH MAINTENANCE Edited Result - Final documented in this encounter Visit Diagnoses Not on filedocumented in this encounter Care Teams Metal Fabricating Inspector Relationship Specialty Start Date End Date Clari Lemons MD [address] [place] [address] PCP - General Family Medicine 07/14/18 Seven Lopez, RN [address] [place] [phone] Registered Nurse Family Medicine 04/22/25 04/23/25 Vivian Jimenez 04/22/25 04/23/25 documented as of this encounter
[2025-10-16 12:58] LABS: Free Prostate Spec Ag 1.3 ng/mL; Percent Free Prostate Spec Ag 21 % (calc) (>25)
== END 2025-10-14 10:24 | disposition home or self-care (01) ==
LOC: HO.LAB 10:23
PROVIDERS: PCP Internal Medicine; Visit Provider Nurse Practitioner Family
DX: N32.0 Bladder-neck obstruction (principal)
CPT/HCPCS: 36415; 84153; 84154; 84403